=== PATIENT | female | born 1955 | race Caucasian/White ===

== ENCOUNTER 2018-11-03 19:15 | Inpatient (IN) | payer OTHER ==
[2018-11-03] MEDS ORDERED: LIDOCAINE 1% INJ 10MG/ML (20 ML MDV) ONE ×3 (19:37→20:06)
[2018-11-03] MEDS ORDERED: IV FLUID CONTINUATION 1,000 ML IV ONE (19:50)
[2018-11-03] MEDS ORDERED: LIDOCAINE 1% INJ 10MG/ML (20 ML MDV) SQ ONE (20:00)
[2018-11-03 21:00] LABS: Glucose,Whole Blood 208 mg/dL (75-99)
--- NOTE | 2018-11-03 23:21 | CONS ---
CONSULTATION CHIEF COMPLAINT: Complete heart block. HISTORY: This is a 62-year-old lady who presented to [facility] Emergency Room with epigastric discomfort, nausea, and dizziness. She was found to be in complete heart block and was transferred to [facility] for further care. I evaluated the patient in the dental laboratory worker. She is in complete heart block with a heart rate in the 30s. She is on IV dopamine which really does not seem to be doing a whole lot as her heart rhythm continues to be in complete heart block. The patient is alert, oriented, talking and does not have significant symptoms. She denies any chest pain or difficulty in breathing. There is no prior history of coronary artery disease or congestive heart failure. There is no prior cardiac workup on her. While her CBC shows normal hemoglobin, I do not have any electrolytes on her at this time. She is on CHAMP inhibitors and there is history of hypertension and diabetes. PAST MEDICAL HISTORY: Significant for hypertension and diabetes. MEDICATIONS: She is on Zestril and metformin. I do not have a complete list of her medications. ALLERGIES: She denies any allergies. SOCIAL HISTORY: Negative for smoking. FAMILY HISTORY: Negative for premature coronary artery disease. REVIEW OF SYSTEMS: HEENT: Significant for dizziness. CARDIAC: As described above. RESPIRATORY: Negative. GI: As described above. GENITOURINARY: Negative. MUSCULOSKELETAL: Significant for arthritis. PSYCHOSOCIAL: Negative. ENDOCRINE: Negative. DERM: Negative. CONSTITUTIONAL: Negative. ONCOLOGIC: Negative. The rest of the review of systems is not relevant. EXAM: Patient is comfortable at rest. Heart rate is 33 beats per minute. Blood pressure is 100/70. There is no jugular venous distention. Carotid upstroke is normal. There is no bruit. Chest exam reveals good air entry bilaterally. Heart exam reveals first and second heart sounds. No gallop. No murmur. No rub. Abdomen is soft, nontender. Exam of extremities did not reveal edema. Peripheral pulses are felt. DIAGNOSTIC DATA: EKG shows complete heart block. Labs are pending at this time. ASSESSMENT: 1. Complete heart block. 2. History of hypertension. 3. Diabetes. PLAN: Patient will undergo a temporary transvenous pacemaker emergently and will be admitted to ICU. I will obtain a 2D echo to assess LV function and depending upon how she wall, she may need a pacemaker. MMODL / IJN: [id number] /
[2018-11-03] MEDS ORDERED: NALOXONE 0.4 MG/ML 1 ML VIAL IV PRN (23:26)
--- NOTE | 2018-11-03 23:27 | PCN ---
PROCEDURE NOTE DATE OF SERVICE: 11/03/2018. PROCEDURE NOTE: After obtaining informed consent, a venous access was obtained in the right groin using modified Seldinger technique. A temporary transvenous pacemaker was floated into the right ventricle under fluoroscopic guidance. Adequate pacing and sensing thresholds were obtained and adequate positioning of the pacer lead noted in the RV apex. The patient will be admitted to ICU and we will obtain a chest x-ray in the morning. MMZIL / IJN: [id number] /
[2018-11-04 04:23] LABS: Basophils % (A) 1 %; Eosinophils # (A) 0.2 k/uL (0-0.7); Eosinophils % (A) 3 %; HCT 38.9 % (34.0-46.0); HGB 12.9 gm/dL (11.4-16.0); Lymphocytes # (A) 1.3 k/uL (1.0-4.8); Lymphocytes % (A) 18 %; MCH 27.6 pg (25.0-35.0); MCHC 33.1 g/dL (31.0-37.0); MCV 83.5 fL (80.0-100.0); Mean Platelet Volume 8.9; Monocytes # (A) 0.3 k/uL (0-1.0); Monocytes % (A) 5 %; Neutrophils # (A) 5.3 k/uL (1.3-7.7); Neutrophils % (A) 73 %; Platelet Count 174 k/uL (150-450); RBC 4.66 m/uL (3.80-5.40); RDW 14.7 % (11.5-15.5); WBC 7.2 k/uL (3.8-10.6)
[2018-11-04 04:44] LABS: African American GFR (CKD) >90 (>60 ml/min/1.73 sqM); Anion Gap 11 mmol/L; Blood Urea Nitrogen 13 mg/dL (7-17); Calcium 9.8 mg/dL (8.4-10.2); Carbon Dioxide 25 mmol/L (22-30); Chloride 104 mmol/L (98-107); Glucose 141 mg/dL (74-99); Potassium 4.8 mmol/L (3.5-5.1); Sodium 140 mmol/L (137-145)
[2018-11-04] MEDS: INSULIN ASPART (NovoLOG) 100 UNIT/ML VIAL SQ SCH ×4 (06:57→19:55)
[2018-11-04 06:59] LABS: Glucose,Whole Blood 119 mg/dL (75-99)
[2018-11-04] MEDS: SODIUM CHLORIDE 0.9% 1,000 ML IV SCH ×3 (08:00→19:56)
[2018-11-04 08:10] LABS: Magnesium 1.6 mg/dL (1.6-2.3); Phosphorus 4.1 mg/dL (2.5-4.5)
[2018-11-04] MEDS: LISINOPRIL 10 MG TAB PO SCH ×2 (08:21→19:55)
[2018-11-04] MEDS: PANTOPRAZOLE 40 MG/10 ML VIAL IV SCH (08:21)
--- NOTE | 2018-11-04 10:11 | XR ---
EXAMINATION TYPE: XR chest 1V DATE OF EXAM: 11/04/2018 COMPARISON: NONE HISTORY: ICU management TECHNIQUE: Single frontal view of the chest is obtained. FINDINGS: Nonenlarged cardiomediastinal silhouette. Single pacing lead tracts from the abdomen projects over th e heart. No pulmonary vascular congestion. No focal airspace consolidation. No pleural effusion or pn eumothorax. IMPRESSION: No acute process.
--- NOTE | 2018-11-04 10:14 | P.HPIM ---
History of Present Illness H&P Date: 11/04/18 Chief Complaint: Weakness This is a 62-year-old female patient of Dr. Aburto with a past medical history of diabetes mellitus type 2, hypertension, hyperlipidemia, corry roesophageal reflux disease. Patient gives history of generalized weakness especially to the lower extremities. She tried to walk to the drugstore to get her prescription but was unable to do that. She states she ate dinner and was then nauseated afterwards. She took a nap and she woke up she was sweating profusely. She states she has not felt well since then. Patient denies any history of cardiac issues and does not follow with medical case manager. No history of CVA. She's never had symptoms like this before. She denies any chest pain, shortness of breath. Nausea and has resolved. No vomiting. She denies any history of Lyme disease, camping, tick bites. Patient initially presented to [facility]. Patient was found to be in complete heart block with heart rate in the 30s. She was on IV dopamine and remained in a complete heart block. Hemoglobin was normal. Patient was transferred to the [facility] as a direct admission to the intensive care unit. Patient has had a temporary pacer placed by Dr. Zuleta with plan for permanent pacemaker for tomorrow. Echocardiogram has been ordered. Chest x-ray done this morning, report pending. Review of Systems Constitutional: Reports fatigue, Reports poor appetite, Reports weakness, Denies anorexia, Denies chills, Denies fever, Denies night sweats Eyes: bilateral decreased vision, bilateral photophobia Ears, nose, mouth and throat: Denies dysphagia, Denies epistaxis, Denies nasal congestion, Denies nasal discharge, Denies vertigo Cardiovascular: Denies chest pain, Denies decreased exercise tolerance, Denies dyspnea on exertion, Denies edema, Denies leg edema, Denies lightheadedness, Denies syncope Respiratory: Denies congestion, Denies cough, Denies cough with sputum, Denies dyspnea, Denies excessive sputum, Denies hemoptysis, Denies home oxygen, Denies wheezing Gastrointestinal: Reports loss of appetite, Reports nausea, Denies abdominal pain, Denies bloating, Denies diarrhea, Denies vomiting Genitourinary: Denies dysuria, Denies hematuria, Denies urgency, Denies urinary frequency Musculoskeletal: Reports muscle weakness, Denies frequent falls, Denies myalgias Integumentary: Denies pruritus, Denies rash, Denies wounds Neurological: Denies ataxia, Denies change in mentation, Denies change in speech, Denies numbness, Denies seizures, Denies weakness Psychiatric: Denies anxiety, Denies depression Endocrine: Denies fatigue, Denies weight change Past Medical History Past Medical History: Diabetes Mellitus, GERD/Reflux, Hyperlipidemia, Hypertension, Pneumonia Additional Past Medical History / Comment(s): Complete heart block History of Any Multi-Drug Resistant Organisms: None Reported Past Surgical History: Cholecystectomy, Hysterectomy Past Psychological History: Anxiety Smoking Status: Never smoker Past Alcohol Use History: None Reported Additional Past Alcohol Use History / Comment(s): Patient is a lifelong nonsmoker. No illicit drug use, no alcohol use. Past Drug Use History: None Reported - Past Family History Father Additional Family Medical History / Comment(s): Father in his 80s from a stroke. Mother Additional Family Medical History / Comment(s): Mother is with history of hypertension. Brother(s) Additional Family Medical History / Comment(s): Patient has one brother history of NH at age 60. Medications and Allergies Home Medications Medication Instructions Recorded Confirmed Type Calcium Carbonate [Calcium] 600 mg PO BID 11/03/18 11/03/18 History Fish Oil/Dha/Epa [Fish Oil 1,200 1 cap PO HS 11/03/18 11/03/18 History mg Fish Oil] Lisinopril [Prinivil] 10 mg PO BID 11/03/18 11/03/18 History Magnesium Oxide [Mag-Ox] 400 mg PO DAILY 11/03/18 11/03/18 History Omeprazole [PriLOSEC] 20 mg PO DAILY 11/03/18 11/03/18 History Simvastatin [Zocor] 20 mg PO HS 11/03/18 11/03/18 History Vitamin D3(Unknown Dose) 1 tab PO DAILY 11/03/18 11/03/18 History metFORMIN HCL ER [Glucophage Xr] 1,000 mg PO AC-BRKFST 11/03/18 11/03/18 History metFORMIN HCL ER [Glucophage Xr] 500 mg PO AC-SUPPER 11/03/18 11/03/18 History Allergies Allergy/AdvReac Type Severity Reaction Status Date / Time aspirin AdvReac Abdominal Verified 11/03/18 21:17 Pain Physical Exam Vitals: Vital Signs Temp Pulse Resp BP Pulse Ox 11/04/18 07:00 66 16 106/64 98 11/04/18 06:30 66 14 98 11/04/18 06:00 66 19 95/60 99 11/04/18 05:30 66 16 99 11/04/18 05:00 66 12 123/60 97 11/04/18 04:30 66 12 99 11/04/18 04:00 98.5 F 66 18 103/67 98 11/04/18 03:30 66 16 97 11/04/18 03:00 66 16 114/65 97 11/04/18 02:30 66 16 96 11/04/18 02:00 65 18 142/65 99 11/04/18 01:30 66 16 97 11/04/18 01:00 66 19 129/76 97 11/04/18 00:30 66 14 97 11/04/18 00:00 98.1 F 66 13 113/64 98 11/03/18 23:30 66 12 99 11/03/18 23:10 66 16 95 11/03/18 23:00 66 12 112/65 95 11/03/18 22:30 66 14 95 11/03/18 22:00 66 14 112/65 92 L 11/03/18 21:30 65 12 91 L 11/03/18 21:00 66 18 93 L 11/03/18 20:50 98.1 F 66 12 121/58 93 L Intake and Output 11/03/18 11/04/18 11/04/18 22:59 06:59 14:59 Intake Total 250 600 75 Output Total 600 250 Balance 250 0 -175 Intake: IV 250 600 75 0.9 NS 150 600 75 Output: Urine 600 250 Other: Voiding Method Bedpan Bedpan # Voids 1 Weight 65 kg 71.7 kg - Constitutional General appearance: average body habitus, no acute distress - EENT Eyes: edentulous, normal appearance - Neck Neck: no lymphadenopathy, normal ROM, no thyromegaly Carotids: bilateral: bruit absent - Respiratory Respiratory: bilateral: CTA, negative: rales, rhonchi, wheezing, prolonged expiration - Cardiovascular Rhythm: regular Heart sounds: normal: S1, S2 Abnormal Heart Sounds: no systolic murmur, no diastolic murmur, no rub, no S3 Gallop, no S4 Gallop - Gastrointestinal General gastrointestinal: normal bowel sounds, no organomegaly, no tenderness - Integumentary Integumentary: no jaundiced, normal - Neurologic Neurologic: CNII-XII intact - Musculoskeletal Musculoskeletal: strength equal bilaterally, no right sided weakness, no left sided weakness - Psychiatric Psychiatric: A&O x's 3, appropriate affect, intact judgment & insight Results CBC & Chem 7: 11/04/18 04:05 11/04/18 04:05 Labs: Abnormal Lab Results - Last 24 Hours (Table) 11/03/18 11/04/18 11/04/18 Range/Units 20:56 04:05 06:56 Glucose 141 H (74-99) mg/dL POC Glucose (mg/dL) 208 H 119 H (75-99) mg/dL Thrombosis Risk Factor Assmnt - DVT/VTE Prophylaxis DVT/VTE Prophylaxis: Pharmacologic Prophylaxis ordered - Choose All That Apply Any of the Below Risk Factors Present?: Yes Each Factor Represents 1 point: Medical pt on bed rest, Minor surgery planned Other Risk Factors: Yes Each Risk Factor Represents 2 Points: Age 61-74 years Thrombosis Risk Factor Assessment Total Risk Factor Score: 4 Thrombosis Risk Factor Assessment Level: Moderate Risk Assessment and Plan Plan: 1. Complete heart block status post temporary pacemaker placement by Dr. Orlando. Patient will be scheduled for permanent pacemaker placement. Echocardiogram ordered. Repeat chest X ray has been obtained and report is pending. 2. Diabetes mellitus type 2. Metformin on hold. Continue NovoLog scale before meals and at bedtime. 3. Hypertension. Continue lisinopril 10 mg twice daily. 4. Hyperlipidemia. Continue atorvastatin 20 mg at bedtime. 5. Gastroesophageal reflux disease. Continue omeprazole 20 mg daily. 6. DVT prophylaxis. Heparin subcu. Patient will be admitted to the hospital for a minimum of 2 night stay. Discharge plan: Return home Impression and plan of care have been directed as dictated by the signing physician. Jami Ramires nurse practitioner acting as scribe for signing physician.
[2018-11-04] MEDS ORDERED: SODIUM CHLORIDE 0.9% 1,000 ML IV SCH (11:45)
[2018-11-04 11:56] LABS: Glucose,Whole Blood 136 mg/dL (75-99)
[2018-11-04] MEDS: ACETAMINOPHEN TAB 325 MG TAB PO PRN (12:00)
--- NOTE | 2018-11-04 13:38 | ECHOF ---
Referral Reason:LVF MEASUREMENTS -------- HEIGHT: 154.9 cm WEIGHT: 71.7 kg BP: 106/64 RVIDd: 2.9 cm (< 3.3) IVSd: 1.3 cm (0.6 - 1.1) LVIDd: 3.9 cm (3.9 - 5.3) LVPWd: 1.1 cm (0.6 - 1.1) IVSs: 1.6 cm LVIDs: 2.4 cm LVPWs: 1.5 cm LAESV Index (A-L): 12.66 ml/m Ao Diam: 2.5 cm (2.0 - 3.7) AV Cusp: 1.5 cm (1.5 - 2.6) LA Diam: 2.7 cm (2.7 - 3.8) MV EXCURSION: 15.184 mm (> 18.000) MV EF SLOPE: 86 mm/s (70 - 150) EPSS: 0.9 cm MV E Neal: 0.87 m/s MV DecT: 319 ms MV A Neal: 0.76 m/s MV E/A Ratio: 1.15 RAP: 5.00 mmHg RVSP: 33.20 mmHg FINDINGS -------- Paced rhythm. This was a technically difficult study with suboptimal apical views. The left ventricular size is normal. There is mild concentric left ventricular hypertrophy. Overa ll left ventricular systolic function is low-normal with, an EF between 50 - 55 %. Apical septum LV wall motion is hypokinetic. Atypical septal wall motion The right ventricle is normal in size. Normal LA size by volume 22+/-6 ml/m2. The right atrial size is normal. 5.0mg of Lumason was utilized for enhancement of images Interatrial and interventricular septum intact. There is no evidence of aortic regurgitation. There is no evidence of aortic stenosis. Mild mitral annular calcification present. Mild mitral regurgitation is present. Mild tricuspid regurgitation present. There is borderline pulmonary artery hypertension. The righ t ventricular systolic pressure, as measured by Doppler, is 33.20mmHg. Trace/mild (physiologic) pulmonic regurgitation. The aortic root size is normal. IVC Not well visulized. There is no pericardial effusion. CONCLUSIONS -------- 1. Paced rhythm. 2. This was a technically difficult study with suboptimal apical views. 3. The left ventricular size is normal. 4. There is mild concentric left ventricular hypertrophy. 5. Overall left ventricular systolic function is low-normal with, an EF between 50 - 55 %. 6. Apical septum LV wall motion is hypokinetic. 7. Atypical septal wall motion 8. The right ventricle is normal in size. 9. Normal LA size by volume 22+/-6 ml/m2. 10. The right atrial size is normal. 11. 5.0mg of Lumason was utilized for enhancement of images 12. Interatrial and interventricular septum intact. 13. There is no evidence of aortic regurgitation. 14. There is no evidence of aortic stenosis. 15. Mild mitral annular calcification present. 16. Mild mitral regurgitation is present. 17. Mild tricuspid regurgitation present. 18. There is borderline pulmonary artery hypertension. 19. The right ventricular systolic pressure, as measured by Doppler, is 33.20mmHg. 20. Trace/mild (physiologic) pulmonic regurgitation. 21. The aortic root size is normal. 22. IVC Not well visulized. 23. There is no pericardial effusion. MOVABLE BULKHEAD INSTALLER: Gloria Polanco RDCS
[2018-11-04] MEDS ORDERED: Magnesium Replacement Protocol 1 EACH MISC MISCELLANE PRN (14:01)
[2018-11-04] MEDS: MAGNESIUM SULFATE-D5W PMX 1 GM in DEXTROSE/WATER 1 100ML.BAG IVPB SCH ×2 (14:26→15:45)
[2018-11-04 16:57] LABS: Glucose,Whole Blood 186 mg/dL (75-99)
[2018-11-04 19:54] LABS: Glucose,Whole Blood 147 mg/dL (75-99)
[2018-11-04] MEDS: ATORVASTATIN 20 MG TAB PO SCH (19:55)
--- NOTE | 2018-11-04 21:59 | PN ---
PROGRESS NOTE HISTORY: Mrs. Mora is a 62-year-old lady, a patient with a history of type 2 diabetes as well as hypertension who came into the hospital with a complete heart block, was seen by Dr. Amaya who performed a temporary pacemaker yesterday. She is resting comfortably, pretty much 100% paced at this time. She had a complete heart block with a rate of 30, on IV dopamine it did not help her much. I explained to her the rationale for permanent pacemaker. I explained her the risk of an infection, bleeding, injury to the lung and to the heart as well as a possibility of pneumothorax. The patient understands all details and wishes to proceed with the procedure which will be performed tomorrow at 11:00 a.m. I will obtain an echocardiogram to assess her LV function today. Her blood pressure control is optimal. She is resting comfortably. I am reducing the pacemaker settings to a backup rate of 50 beats per minute. The patient is fully aware of the rationale, risks, benefits, options related to permanent pacemaker and wishes to proceed and I will set this up for 11:00 a.m. tomorrow. MMCHAR / IJN: [id number] /
--- NOTE | 2018-11-04 22:29 | PN ---
PROGRESS NOTE HISTORY: Miri is a 62-year-old lady who is admitted to hospital with complete heart block. She underwent a temporary transvenous pacemaker last night by me. This morning she is doing well and is free of significant symptoms. She is still in complete heart block and the temporary transvenous pacemaker is functioning normally. LABS: Hemoglobin of 12.9, platelet count is 174, white cell count is normal. Creatinine is normal at 0.76. Potassium is 4.8. I will obtain a TSH on her and I will obtain a 2-D Doppler to document her LV function. The patient will need a permanent pacemaker and Dr. Donna Gutierrez will do it. EXAM: Patient is comfortable at rest. Vital signs are stable. There is no jugular venous distention. Chest exam reveals good air entry bilaterally. Vital signs are stable. There is no jugular venous distention. Chest is clear to auscultation and percussion. Heart exam reveals first and second heart sounds. No gallop. Exam of extremities did not reveal any edema. Peripheral pulses are felt. ASSESSMENT: Complete heart block status post temporary pacemaker. The patient will undergo permanent pacemaker tomorrow. I will obtain a 2D echo to document his LV function. MMODL / IJN: [id number] /
[2018-11-05] MEDS: ACETAMINOPHEN TAB 325 MG TAB PO PRN ×2 (02:11→16:56)
[2018-11-05 04:40] LABS: Basophils % (A) 1 %; Eosinophils # (A) 0.2 k/uL (0-0.7); Eosinophils % (A) 4 %; HCT 36.3 % (34.0-46.0); Lymphocytes # (A) 1.2 k/uL (1.0-4.8); Lymphocytes % (A) 18 %; MCHC 33.2 g/dL (31.0-37.0); MCV 84.4 fL (80.0-100.0); Mean Platelet Volume 8.8; Monocytes # (A) 0.3 k/uL (0-1.0); Monocytes % (A) 5 %; Neutrophils # (A) 4.8 k/uL (1.3-7.7); Neutrophils % (A) 72 %; Platelet Count 156 k/uL (150-450); RBC 4.29 m/uL (3.80-5.40); RDW 14.8 % (11.5-15.5); WBC 6.7 k/uL (3.8-10.6)
[2018-11-05 04:50] LABS: African American GFR (CKD) >90 (>60 ml/min/1.73 sqM); Anion Gap 8 mmol/L; Blood Urea Nitrogen 15 mg/dL (7-17); Calcium 8.7 mg/dL (8.4-10.2); Carbon Dioxide 23 mmol/L (22-30); Chloride 106 mmol/L (98-107); Glucose 143 mg/dL (74-99); Magnesium 2.1 mg/dL (1.6-2.3); Potassium 4.4 mmol/L (3.5-5.1); Sodium 137 mmol/L (137-145)
[2018-11-05] MEDS ORDERED: ceFAZolin 1,000 MG in SODIUM CHLORIDE 0.9% IRRIGATIO 250 ML IRRIGATION ONE (06:00)
[2018-11-05 06:24] LABS: Glucose,Whole Blood 149 mg/dL (75-99)
[2018-11-05] MEDS: INSULIN ASPART (NovoLOG) 100 UNIT/ML VIAL SQ SCH ×4 (06:25→22:03)
[2018-11-05] MEDS: SODIUM CHLORIDE 0.9% 1,000 ML IV SCH ×2 (08:00→11:39)
[2018-11-05] MEDS: PANTOPRAZOLE 40 MG/10 ML VIAL IV SCH (08:00)
[2018-11-05] MEDS: LISINOPRIL 10 MG TAB PO SCH ×2 (08:01→22:03)
[2018-11-05 11:49] LABS: Glucose,Whole Blood 133 mg/dL (75-99)
[2018-11-05] MEDS ORDERED: IV FLUID CONTINUATION 1,000 ML IV ONE (12:00)
[2018-11-05] MEDS ORDERED: IOPAMIDOL-250 100ML BTL IV ONE (12:18)
[2018-11-05] MEDS ORDERED: ceFAZolin 10 GM VIAL IVPB ONE ×2 (12:21→12:43)
[2018-11-05] MEDS ORDERED: MIDAZOLAM (PF) 2 MG/2 ML VIAL IV ONE (12:31)
[2018-11-05] MEDS ORDERED: LIDOCAINE 1% INJ 10MG/ML (20 ML MDV) ONE (12:34)
[2018-11-05] MEDS: LIDOCAINE 1% INJ 10MG/ML (20 ML MDV) SQ ONE ×2 (12:34→12:46)
[2018-11-05] MEDS ORDERED: fentaNYL (PF) 50 MCG/ML 2 ML AMP ONE (13:07)
[2018-11-05] MEDS ORDERED: fentaNYL (PF) 50 MCG/ML 2 ML AMP IV ONE (13:09)
[2018-11-05] MEDS ORDERED: ACETAMINOPHEN TAB 325 MG TAB PO PRN (14:11)
[2018-11-05] MEDS: METOPROLOL TARTRATE 25 MG TAB PO SCH ×2 (14:49→22:03)
[2018-11-05] MEDS ORDERED: MORPHINE SULFATE 4 MG/ML SYRINGE IVP PRN (14:56)
--- NOTE | 2018-11-05 15:13 | XR ---
EXAMINATION TYPE: XR chest 1V portable DATE OF EXAM: 11/05/2018 COMPARISON: 11/04/2018 HISTORY: Lead placement check TECHNIQUE: Single frontal view of the chest is obtained. FINDINGS: There is a new dual-lead left-sided cardiac device with a sinonodal lead and ventricular l ead. No postprocedural pneumothorax is seen. Minimal perihilar atelectasis. Cardiomediastinal silhoue tte is upper limits of normal size. No new focal consolidation, pleural effusion or pneumothorax. IMPRESSION: New dual lead left-sided cardiac device as described above with minimal perihilar atelec tasis.
[2018-11-05 16:51] LABS: Glucose,Whole Blood 143 mg/dL (75-99)
--- NOTE | 2018-11-05 16:55 | P.PN ---
Subjective Progress Note Date: 11/05/18 This is a 62-year-old female patient of Dr. Aburto with a past medical history of diabetes mellitus type 2, hypertension, hyperlipidemia, gastroesophageal reflux disease. Patient gives history of generalized weakness especially to the lower extremities. She tried to walk to the drugstore to get her prescription but was unable to do that. She states she ate dinner and was then nauseated afterwards. She took a nap and she woke up she was sweating profusely. She states she has not felt well since then. Patient denies any history of cardiac issues and does not follow with bungy jump master. No history of CVA. She's never had symptoms like this before. She denies any chest pain, shortness of breath. Nausea and has resolved. No vomiting. She denies any history of Lyme disease, camping, tick bites. Patient initially presented to [facility]. Patient was found to be in complete heart block with heart rate in the 30s. She was on IV dopamine and remained in a complete heart block. Hemoglobin was normal. Patient was transferred to the [facility] as a direct admission to the intensive care unit. Patient has had a temporary pacer placed by Dr. Zuleta with plan for permanent pacemaker for tomorrow. Echocardiogram has been ordered. Chest x-ray done this morning, report pending. 11/05 patient examined bedside complains of some pain in her back but denies any abnormality. Vitals are stable with a temp of 97.8 blood pressure 128/94 labs are stable patient is seen postoperatively doing well morphine added for pain control Review of system Constitutional: Denies chills, Denies fever, Denies lethargy, Denies malaise, Denies poor appetite, Denies weakness, Denies weight loss Eyes: denies decreased vision, denies diplopia, denies discharge, denies pain Ears: deny: decreased hearing Ears, nose, mouth and throat: Denies dental pain, Denies headache, Denies nasal discharge, Denies nose pain Cardiovascular: Denies chest pain, Denies decreased exercise tolerance, Denies edema, Denies high blood pressure, Denies irregular heart beat, Denies p alpitations, Denies paroxysmal nocturnal dyspnea, Denies rapid heart beat, Denies shortness of breath Respiratory: Denies congestion, Denies cough, Denies cough with sputum, Denies dyspnea, Denies home oxygen, Denies wheezing Gastrointestinal: Denies abdominal pain, Denies change in bowel habits, Denies coffee ground emesis, Denies early satiety, Denies excessive gas, Denies heartburn, Denies hematemesis, Denies hematochezia, Denies loss of appetite, Denies nausea, Denies vomiting Genitourinary: Denies dysuria, Denies flank pain, Denies kidney stones, Denies menorrhagia, Denies urgency, Denies urinary frequency Musculoskeletal: Denies gait dysfunction, Denies limitation of motion, Denies morning stiffness, Denies muscle cramps Integumentary: Denies rash, Denies wounds, Denies brittle nails, Denies change in hair/nails, Denies darkening of skin Neurological: Denies balance difficulties, Denies change in speech, Denies double vision, Denies gait dysfunction, Denies loss of vision, Denies motor disturbance, Denies numbness, Denies paralysis, Denies paresthesias, Denies seizures Psychiatric: Denies anxiety, Denies depression Endocrine: Denies excessive sweating, Denies excessive thirst, Denies high blood sugars, Denies palpitations Hematologic/Lymphatic: Denies easy bruising, Denies lymphadenopathy Objective - Vital Signs Vital signs: Vital Signs Temp 98.9 F 11/05/18 15:00 Pulse 89 11/05/18 15:00 Resp 16 11/05/18 15:00 BP 126/94 11/05/18 15:00 Pulse Ox 97 11/05/18 15:00 Intake & Output 11/04/18 11/05/18 11/05/18 18:59 06:59 18:59 Intake Total 1225 1050 600 Output Total 1560 825 620 Balance -335 225 -20 Weight 71.9 kg Intake: IV 75 550 600 0.9 NS 75 550 50 Sodium Chloride 0.9% 1, 300 000 ml @ 50 mls/hr IV . Q20H LEISA Rx#:[id number] Intake, IV Titration 650 50 Amount Sodium Chloride 0.9% 1, 650 50 000 ml @ 50 mls/hr IV . Q20H LEISA Rx#:[id number] Oral 500 450 Output: Urine 1560 825 620 Other: Voiding Method Indwelling Catheter Indwelling Catheter - Exam - Constitutional General appearance: cooperative, no acute distress, obese - EENT Eyes: anicteric sclerae, PERRLA, normal appearance ENT: hearing grossly normal - Neck Neck: no lymphadenopathy, normal ROM, no other, no rigidity, no stridor, no thyromegaly - Respiratory Respiratory: bilateral: CTA, negative: diminished, dullness, rales, rhonchi - Cardiovascular Rhythm: regular Heart sounds: normal: S1, S2 is negative aside appears normal Abnormal Heart Sounds: no systolic murmur, no diastolic murmur, no rub, no S3 Gallop, no S4 Gallop, no click, no other - Gastrointestinal General gastrointestinal: normal bowel sounds, soft - Integumentary Integumentary: no rash - Neurologic Neurologic: CNII-XII intact - Musculoskeletal Musculoskeletal: Strength is slightly reduced in the lower extremity for - Psychiatric Psychiatric: A&O x's 3, appropriate affect - Labs CBC & Chem 7: 11/05/18 04:17 11/05/18 04:17 Labs: Abnormal Lab Results - Last 24 Hours (Table) 11/04/18 11/04/18 11/05/18 Range/Units 16:54 19:51 04:17 Glucose 143 H (74-99) mg/dL POC Glucose (mg/dL) 186 H 147 H (75-99) mg/dL 11/05/18 11/05/18 11/05/18 Range/Units 06:20 11:45 16:48 Glucose (74-99) mg/dL POC Glucose (mg/dL) 149 H 133 H 143 H (75-99) mg/dL Assessment and Plan Plan: 1. Complete heart block status post permanent pacemaker on 11/05 Echocardiogram ordered. Repeat chest X ray has been obtained and report is pending. Pain control with morphine and Tylenol 2. Diabetes mellitus type 2. Metformin on hold. Continue NovoLog scale before meals and at bedtime. 3. Hypertension. Continue lisinopril 10 mg twice daily. 4. Hyperlipidemia. Continue atorvastatin 20 mg at bedtime. 5. Gastroesophageal reflux disease. Continue omeprazole 20 mg daily. 6. DVT prophylaxis. Heparin subcu. Discharge plan: Return home
[2018-11-05 20:20] LABS: Glucose,Whole Blood 232 mg/dL (75-99)
[2018-11-05 21:55] LABS: Glucose,Whole Blood 234 mg/dL (75-99)
[2018-11-05] MEDS: ATORVASTATIN 20 MG TAB PO SCH (22:03)
[2018-11-06] MEDS: SODIUM CHLORIDE 0.9% 1,000 ML IV SCH (01:21)
[2018-11-06] MEDS: ACETAMINOPHEN TAB 325 MG TAB PO PRN ×2 (01:22→10:16)
--- NOTE | 2018-11-06 01:28 | PCN ---
PROCEDURE NOTE DATE OF SERVICE: 11/05/2018. PROCEDURE: Dual chamber permanent pacemaker placement from left infraclavicular approach. PERFORMED BY: Dr. Donna Gutierrez. Moderate conscious sedation time was 91 minutes. Patient was administered Versed and fentanyl. Her oxygen saturation, hemodynamics and EKG were monitored closely. CLINICAL INFORMATION: Mrs. Miri Mora is a 62-year-old lady with a history of type 2 diabetes and hypertension who came into the hospital with weakness, bradycardia, dizziness, near- syncope and was found to have a complete heart block and required a temporary pacemaker for the last 36 hours. She was advised to have a permanent pacemaker. Risks, benefits, options and rationale were explained. The patient understood all details and wished to proceed with the procedure. PROCEDURE NOTE: Under local anesthesia and strict aseptic precautions, using a micropuncture needle technique from the left infraclavicular approach under fluoroscopic guidance, I gained access into the axillary vein. Subsequently a second access point was obtained medial to the first access point. A 3 inch linear incision was made medial and parallel to the left deltopectoral groove. Using a cautery and blunt dissection, a pocket was made. The medial wire was also pulled into the incision. The pocket was made and I also placed antibiotic sponge within the pocket. At the time of the incision patient received intravenous antibiotic as per protocol. Subsequently, 6-Iraqi introducers were placed under fluoroscopic guidance. The ventricular and atrial leads were positioned under fluoroscopic guidance. Good thresholds and sensitivities were obtained. Each lead was separately secured to the underlying muscle with 0 silk suture. The diaphragmatic pacing was checked with each lead. The IRISH and COBB fluoroscopic images were reviewed. We were assured that good position was there for both the leads. The thresholds were excellent. Sensitivities were very good. The pulse generator was then connected to the 2 leads. The pulse generator was also secured to the underlying muscle with a 0 silk. The pocket was then closed in 3 layers. Excellent hemostasis was secured. The patient tolerated the procedure well without complications. She will have a portable chest x-ray today and a two-view chest x-ray tomorrow and a device check tomorrow prior to discharge. PACEMAKER INFORMATION: Hand Clerical [employer]. Model Assurity MRI 2272. Serial #[id number]. ATRIAL LEAD: Hand Clerical [employer]. Model Tendril AST 2087TC/46. Serial number [id number]. VENTRICULAR LEAD: Hand Clerical Verifier [employer]. Model Tendril SDS 2088 TC/52. Serial #[id number]. Atrial threshold was 0.5 V at 0.4 milliseconds. The P-waves were 3.8 mV. Impedance was 508 ohms. The ventricular threshold was 0.9 V at 0.4 milliseconds. R-waves were 9.7 mV. Impedance was 47 ohms. Pacemaker was set at a low rate of 55 and a high rate of 120 in a DDD mode. Patient tolerated procedure well. The details were discussed with her family, specifically her boyfriend and daughter. MMZIL / COLBYN: [id number] /
[2018-11-06 04:36] LABS: HCT 34.6 % (34.0-46.0); HGB 11.4 gm/dL (11.4-16.0); MCH 27.6 pg (25.0-35.0); MCHC 32.8 g/dL (31.0-37.0); MCV 84.1 fL (80.0-100.0); Mean Platelet Volume 8.6; Platelet Count 145 k/uL (150-450); RBC 4.11 m/uL (3.80-5.40); WBC 7.9 k/uL (3.8-10.6)
[2018-11-06 04:48] LABS: African American GFR (CKD) >90 (>60 ml/min/1.73 sqM); Anion Gap 8 mmol/L; Blood Urea Nitrogen 14 mg/dL (7-17); Calcium 8.4 mg/dL (8.4-10.2); Carbon Dioxide 22 mmol/L (22-30); Chloride 106 mmol/L (98-107); Glucose 228 mg/dL (74-99); Potassium 4.5 mmol/L (3.5-5.1); Sodium 136 mmol/L (137-145)
[2018-11-06 06:57] LABS: Glucose,Whole Blood 155 mg/dL (75-99)
[2018-11-06] MEDS: INSULIN ASPART (NovoLOG) 100 UNIT/ML VIAL SQ SCH (07:03)
[2018-11-06] MEDS: LISINOPRIL 10 MG TAB PO SCH (08:11)
[2018-11-06] MEDS: PANTOPRAZOLE 40 MG/10 ML VIAL IV SCH (08:11)
[2018-11-06] MEDS: METOPROLOL TARTRATE 25 MG TAB PO SCH (08:12)
[2018-11-06 11:09] LABS: Lyme IgG/IgM 0.06 Index
[2018-11-06 11:33] VITALS: BP 135/73; PULSE 65; RESP 15; TEMP 98
--- NOTE | 2018-11-06 11:36 | PN ---
PROGRESS NOTE This patient was admitted with dizziness or lightheadedness. The patient was found to be in complete heart block. She underwent a permanent pacemaker placement. The pacemaker was checked this morning. The pacemaker is working normally. Patient is comfortable. She has ambulated in the hallway without any problem. The patient's incision site looks good. Blood pressure is 137/65 mmHg. First and second heart sounds are normal. Lungs are clear to auscultation and percussion. The patient will be discharged home today and will follow up with Dr. Amaya as an outpatient. MMODL / IJN: [id number] /
[2018-11-06 11:56] LABS: Glucose,Whole Blood 132 mg/dL (75-99)
--- NOTE | 2018-11-06 14:02 | XR ---
EXAMINATION TYPE: XR chest 2V DATE OF EXAM: 11/06/2018 COMPARISON: 11/05/2018 TECHNIQUE: PA and lateral views submitted. HISTORY: Lead placement check FINDINGS: The lungs are clear and there is no pneumothorax, pleural effusion, or focal pneumonia. There is a d ouble lead cardiac device is seen. Proximal lead overlying the right atrium and distal lead overlying the right ventricle. Hypertrophic and degenerative change of the spine. IMPRESSION: 1. Stereotactic device appears in good position with no sizable pneumothorax..
== END 2018-11-06 12:36 | disposition home or self-care (01) | DRG 244 ==
LOC: 2CATHESU 19:39 → 2SICU 20:15
PROVIDERS: ADMIT Internal Medicine Geriatric Medicine; ATTEND Internal Medicine Geriatric Medicine
PROC: 5A1223Z Performance of Cardiac Pacing, Continuous (ICD-10-PCS; principal; 2018-11-03 19:20)
PROC: 0JH606Z Insertion of Pacemaker, Dual Chamber into Chest Subcutaneous Tissue and Fascia, Open Approach (ICD-10-PCS; 2018-11-05)
PROC: 02H63JZ Insertion of Pacemaker Lead into Right Atrium, Percutaneous Approach (ICD-10-PCS; 2018-11-05)
PROC: 02HK3JZ Insertion of Pacemaker Lead into Right Ventricle, Percutaneous Approach (ICD-10-PCS; 2018-11-05)
DX: I44.2 Atrioventricular block, complete (principal); E11.9 Type 2 diabetes mellitus without complications; I10 Essential (primary) hypertension; E78.5 Hyperlipidemia, unspecified; K21.9 Gastro-esophageal reflux disease without esophagitis; M54.9 Dorsalgia, unspecified; Z79.84 Long term (current) use of oral hypoglycemic drugs; Z79.899 Other long term (current) drug therapy; Z87.01 Personal history of pneumonia (recurrent); Z90.710 Acquired absence of both cervix and uterus; Z90.49 Acquired absence of other specified parts of digestive tract; Z86.59 Personal history of other mental and behavioral disorders; Z88.6 Allergy status to analgesic agent; Z82.3 Family history of stroke; Z82.49 Family history of ischemic heart disease and other diseases of the circulatory system
CPT/HCPCS: 33208; 33210; 71045; 71046; 80048; 83735; 84100; 84443; 85025; 85027; 86618; 93306

== ENCOUNTER 2018-11-16 08:54 | Emergency (ER) | payer OTHER ==
[2018-11-16 10:22] LABS: Appearance,Urine Clear (Clear); Bilirubin,Urine Negative (Negative); Blood,Urine Negative (Negative); Color,Urine Light Yellow; Glucose,Urine (UA) Negative (Negative); Ketones,Urine Negative (Negative); Leukocyte Esterase,Urine Negative (Negative); Nitrite,Urine Negative (Negative); Protein,Urine Negative (Negative); Specific Gravity,Urine 1.004 (1.001-1.035); Urobilinogen,Urine <2.0 mg/dL (<2.0)
--- NOTE | 2018-11-16 10:23 | ED ---
Nausea/Vomiting/Diarrhea HPI - General Chief complaint: Nausea/Vomiting/Diarrhea Stated complaint: fever/nausea Time Seen by Provider: 11/16/18 09:13 Source: patient Mode of arrival: wheelchair Limitations: no limitations - History of Present Illness Initial comments: 62-year-old female with history of diabetes, hypertension, previous myocardial infarction November 03 2018 status post stent placement as well as pacemaker placement presenting today for chief complaint of nausea, episode of vomiting, diffuse abdominal pain. Patient states that she felt cost. For a few days. She states that she then took a laxative yesterday. 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 She denies any excessive diarrhea. Patient denies any fevers who states she has had some chills. Patient denies any chest pain shortness of breath and arm pain and jaw pain chest pressure epigastric burning pain or indigestion. Patient states it is all over the abdomen crampy in nature. Patient denies any radiation of the pain or severe pain. When symptoms persisted and today patient was concerned she was not sure if this was due to laxative and presented for evaluation. Remaining review of systems negative. - Related Data Home Medications Medication Instructions Recorded Confirmed Calcium Carbonate [Calcium] 600 mg PO BID 11/03/18 11/03/18 Fish Oil/Dha/Epa [Fish Oil 1,200 1 cap PO HS 11/03/18 11/03/18 mg Fish Oil] Lisinopril [Prinivil] 10 mg PO BID 11/03/18 11/03/18 Magnesium Oxide [Mag-Ox] 400 mg PO DAILY 11/03/18 11/03/18 Omeprazole [PriLOSEC] 20 mg PO DAILY 11/03/18 11/03/18 Simvastatin [Zocor] 20 mg PO HS 11/03/18 11/03/18 Vitamin D3(Unknown Dose) 1 tab PO DAILY 11/03/18 11/03/18 metFORMIN HCL ER [Glucophage Xr] 1,000 mg PO AC-BRKFST 11/03/18 11/03/18 metFORMIN HCL ER [Glucophage Xr] 500 mg PO AC-SUPPER 11/03/18 11/03/18 Previous Rx's Medication Instructions Recorded Metoprolol Tartrate [Lopressor] 25 mg PO BID #60 tab 11/06/18 Allergies Allergy/AdvReac Type Severity Reaction Status Date / Time aspirin AdvReac Abdominal Verified 11/16/18 09:08 Pain Review of Systems ROS Statement: Those systems with pertinent positive or pertinent negative responses have been documented in the HPI. ROS Other: All systems not noted in ROS Statement are negative. Past Medical History Past Medical History: Diabetes Mellitus, GERD/Reflux, Hyperlipidemia, Hypertension, Pneumonia Additional Past Medical History / Comment(s): Complete heart block History of Any Multi-Drug Resistant Organisms: None Reported Past Surgical History: Cholecystectomy, Hysterectomy Past Psychological History: Anxiety Smoking Status: Never smoker Past Alcohol Use History: None Reported Past Drug Use History: None Reported - Past Family History Father Additional Family Medical History / Comment(s): Father in his 80s from a stroke. Mother Additional Family Medical History / Comment(s): Mother is with history of hypertension. Brother(s) Additional Family Medical History / Comment(s): Patient has one brother history of ID at age 60. General Exam - General Exam Comments Initial Comments: General: The patient is awake and alert, in no distress, and does not appear acutely ill. Eye: +3 mm pupils are equal, round and reactive to light, extra-ocular movements are intact. No nystagmus. There is normal conjunctiva bilaterally. No signs of icterus. Ears, nose, mouth and throat: There are moist mucous membranes and no oral lesions. Neck: The neck is supple, there is no tenderness or JVD. Cardiovascular: There is a regular rate and rhythm. No murmur, rub or gallop is appreciated. Respiratory: Lungs are clear to auscultation, respirations are non-labored, breath sounds are equal. No wheezes, stridor, rales, or rhonchi. Gastrointestinal: Soft, non-distended, diffuse mild tenderness to palpation of the abdomen lower/upper regions, with lower greater-- without masses or organomegaly noted. There is no rebound or guarding present. Bowel sound unremarkable. Musculoskeletal: Upon inspection of the chest there is pacemaker left side. Normal ROM, no tenderness. Strength 5/5. Sensation intact. Pulses equal bilaterally 2+. Neurological: A&O x 3. CN II-XII intact, There are no obvious motor or sensory deficits. Coordination appears grossly intact. Speech is normal. Skin: Skin is warm and dry and no rashes or lesions are noted. Psychiatric: Cooperative, appropriate mood & affect, normal judgment. Limitations: no limitations Course Vital Signs 11/16/18 09:07 Temperature 98.3 F Pulse Rate 71 Respiratory 18 Rate Blood Pressure 151/84 O2 Sat by Pulse 97 Oximetry Medical Decision Making - Medical Decision Making 62 yo female presents today for chief complaint of nausea, abdominal pain cramping episode of vomiting. Patient took laxative yesterday's her symptoms began after she states she has had large bowel movements since about constant before. Patient says the chest pain or short of breath EKG unremarkable for acute process. Troponin negative. No leukocytosis. No electrolyte derangements. Patient has no active vomiting in the ER. Patient denies any severe pain CT was obtained given patient's advanced age revealing no evidence of bowel obstruction or acute process. At this time feel patient is stable for discharge with outpatient primary care follow-up. Patient to avoid laxative. I discussed the case with provider Dr. Terry who is agreeable to plan discharge at this time we did review laboratory studies and we discussed the case. - Lab Data Result diagrams: 11/16/18 11:05 11/16/18 11:05 Lab Results 11/16/18 11/16/18 11/16/18 Range/Units 10:14 11:05 11:05 WBC 6.6 (3.8-10.6) k/uL RBC 4.67 (3.80-5.40) m/uL Hgb 13.0 (11.4-16.0) gm/dL Hct 38.2 (34.0-46.0) % MCV 81.7 (80.0-100.0) fL MCH 27.8 (25.0-35.0) pg MCHC 34.0 (31.0-37.0) g/dL RDW 15.9 H (11.5-15.5) % Plt Count 213 (150-450) k/uL Neutrophils % 75 % Lymphocytes % 16 % Monocytes % 5 % Eosinophils % 3 % Basophils % 1 % Neutrophils # 5.0 (1.3-7.7) k/uL Lymphocytes # 1.1 (1.0-4.8) k/uL Monocytes # 0.3 (0-1.0) k/uL Eosinophils # 0.2 (0-0.7) k/uL Basophils # 0.0 (0-0.2) k/uL Poikilocytosis Slight Sodium 140 (137-145) mmol/L Potassium 4.5 (3.5-5.1) mmol/L Chloride 103 (98-107) mmol/L Carbon Dioxide 26 (22-30) mmol/L Anion Gap 11 mmol/L BUN 10 (7-17) mg/dL Creatinine 0.58 (0.52-1.04) mg/dL Est GFR (CKD-EPI)AfAm >90 (>60 ml/min/1.73 sqM) Est GFR (CKD-EPI)NonAf >90 (>60 ml/min/1.73 sqM) Glucose 157 H (74-99) mg/dL Calcium 10.0 (8.4-10.2) mg/dL Total Bilirubin 0.4 (0.2-1.3) mg/dL AST 24 (14-36) U/L ALT 19 (9-52) U/L Alkaline Phosphatase 68 (38-126) U/L Troponin I (0.000-0.034) ng/mL Total Protein 7.8 (6.3-8.2) g/dL Albumin 4.4 (3.5-5.0) g/dL Amylase 61 (30-110) U/L Lipase 97 (23-300) U/L Urine Color Light Yellow Urine Appearance Clear (Clear) Urine pH 7.0 (5.0-8.0) Ur Specific Forsan 1.004 (1.001-1.035) Urine Protein Negative (Negative) Urine Glucose (UA) Negative (Negative) Urine Ketones Negative (Negative) Urine Blood Negative (Negative) Urine Nitrite Negative (Negative) Urine Bilirubin Negative (Negative) Urine Urobilinogen <2.0 (<2.0) mg/dL Ur Leukocyte Esterase Negative (Negative) 11/16/18 Range/Units 11:05 WBC (3.8-10.6) k/uL RBC (3.80-5.40) m/uL Hgb (11.4-16.0) gm/dL Hct (34.0-46.0) % MCV (80.0-100.0) fL MCH (25.0-35.0) pg MCHC (31.0-37.0) g/dL RDW (11.5-15.5) % Plt Count (150-450) k/uL Neutrophils % % Lymphocytes % % Monocytes % % Eosinophils % % Basophils % % Neutrophils # (1.3-7.7) k/uL Lymphocytes # (1.0-4.8) k/uL Monocytes # (0-1.0) k/uL Eosinophils # (0-0.7) k/uL Basophils # (0-0.2) k/uL Poikilocytosis Sodium (137-145) mmol/L Potassium (3.5-5.1) mmol/L Chloride (98-107) mmol/L Carbon Dioxide (22-30) mmol/L Anion Gap mmol/L BUN (7-17) mg/dL Creatinine (0.52-1.04) mg/dL Est GFR (CKD-EPI)AfAm (>60 ml/min/1.73 sqM) Est GFR (CKD-EPI)NonAf (>60 ml/min/1.73 sqM) Glucose (74-99) mg/dL Calcium (8.4-10.2) mg/dL Total Bilirubin (0.2-1.3) mg/dL AST (14-36) U/L ALT (9-52) U/L Alkaline Phosphatase (38-126) U/L Troponin I <0.012 (0.000-0.034) ng/mL Total Protein (6.3-8.2) g/dL Albumin (3.5-5.0) g/dL Amylase (30-110) U/L Lipase (23-300) U/L Urine Color Urine Appearance (Clear) Urine pH (5.0-8.0) Ur Specific Forsan (1.001-1.035) Urine Protein (Negative) Urine Glucose (UA) (Negative) Urine Ketones (Negative) Urine Blood (Negative) Urine Nitrite (Negative) Urine Bilirubin (Negative) Urine Urobilinogen (<2.0) mg/dL Ur Leukocyte Esterase (Negative) Disposition Clinical Impression: Abdominal pain, Chills, Nausea Disposition: HOME SELF-CARE Condition: Good Instructions (If sedation given, give patient instructions): Acute Nausea and Vomiting (ED), Abdominal Pain (ED) Additional Instructions: Please use medication as discussed. Please follow-up with family doctor in the next 2 days.. Please return to emergency room if the symptoms increase or wo rsen or for any other concerns. Is patient prescribed a controlled substance at d/c from ED?: No Referrals: Kj Aburto MD [Primary Care Provider] - 1-2 days Time of Disposition: 12:48
[2018-11-16 11:36] LABS: ALT 19 U/L (9-52); AST 24 U/L (14-36); African American GFR (CKD) >90 (>60 ml/min/1.73 sqM); Albumin 4.4 g/dL (3.5-5.0); Alkaline Phosphatase 68 U/L (38-126); Amylase 61 U/L (30-110); Anion Gap 11 mmol/L; Basophils % (A) 1 %; Blood Urea Nitrogen 10 mg/dL (7-17); Carbon Dioxide 26 mmol/L (22-30); Chloride 103 mmol/L (98-107); Eosinophils # (A) 0.2 k/uL (0-0.7); Eosinophils % (A) 3 %; Glucose 157 mg/dL (74-99); HCT 38.2 % (34.0-46.0); Lymphocytes # (A) 1.1 k/uL (1.0-4.8); Lymphocytes % (A) 16 %; MCH 27.8 pg (25.0-35.0); MCV 81.7 fL (80.0-100.0); Mean Platelet Volume 8.5; Monocytes # (A) 0.3 k/uL (0-1.0); Monocytes % (A) 5 %; Neutrophils % (A) 75 %; Non-African American GFR(CKD) >90 (>60 ml/min/1.73 sqM); Platelet Count 213 k/uL (150-450); Poikilocytosis Slight; Potassium 4.5 mmol/L (3.5-5.1); RBC 4.67 m/uL (3.80-5.40); RDW 15.9 % (11.5-15.5); Sodium 140 mmol/L (137-145); Total Bilirubin 0.4 mg/dL (0.2-1.3); Total Protein 7.8 g/dL (6.3-8.2); WBC 6.6 k/uL (3.8-10.6)
[2018-11-16] MEDS ORDERED: ONDANSETRON 4 MG/2 ML VIAL IVP STA (11:40)
--- NOTE | 2018-11-16 12:29 | CT ---
EXAMINATION TYPE: CT abdomen pelvis w con DATE OF EXAM: 11/16/2018 HISTORY: abdominal pain, mid to lower CT DLP: 887.6mGycm Automated Exposure Control for Dose Reduction was Utilized. CONTRAST: CT scan of the abdomen and pelvis is performed without oral but with IV Contrast, patient injected wi th 100 mL of Isovue 300. COMPARISON: None FINDINGS: LUNG BASES: No significant abnormality is appreciated. LIVER/GB: Cholecystectomy clips are present. Prominent right hepatic lobe. Suspect roughly 1.0 cm fla sh filling hemangioma lateral aspect right hepatic lobe axial image 25. PANCREAS: No significant abnormality is seen. SPLEEN: No significant abnormality is seen. ADRENALS: No significant abnormality is seen. KIDNEYS: No significant abnormality is seen. BOWEL: Suboptimal evaluation of bowel without enteric contrast. Poor distention of stomach making juanita luation of this little suboptimal. No suspicious small or large bowel dilatation. Slightly low-lying cecum and right pelvis. Appendix likely normal normal coronal image 46. Slight redundancy of sigmoid colon. UTERUS/ADNEXA: Slightly retroflexed uterus. Tiny amount of free fluid pelvic cul-de-sac extending lef t of midline 63. No suspicious adnexal masses. LYMPH NODES: No greater than 1cm abdominal or pelvic lymph nodes are appreciated. OSSEOUS STRUCTURES: No significant abnormality is seen. OTHER: No significant additional abnormality is seen. IMPRESSION: No bowel obstruction. No significant acute finding is seen to account for patient's clini marlene symptoms on this study. Tiny amount of free fluid pelvic cul-de-sac uncertain etiology but is abn ormal finding in postmenopausal female.
[2018-11-16 13:46] VITALS: BP 133/76; PULSE 69; RESP 16; TEMP 97.9
== END 2018-11-16 13:42 | disposition home or self-care (01) ==
LOC: EC 08:54
DX: R10.84 Generalized abdominal pain (principal); R68.83 Chills (without fever); R11.0 Nausea; E11.9 Type 2 diabetes mellitus without complications; K21.9 Gastro-esophageal reflux disease without esophagitis; E78.5 Hyperlipidemia, unspecified; I10 Essential (primary) hypertension; I25.2 Old myocardial infarction; Z79.84 Long term (current) use of oral hypoglycemic drugs; Z79.899 Other long term (current) drug therapy; Z88.6 Allergy status to analgesic agent; Z95.0 Presence of cardiac pacemaker
CPT/HCPCS: 36415; 93005; 80053; 82150; 83690; 84484; 85025; 81003; 74177; 99284; 96374; J2405; Q9967

== ENCOUNTER 2018-11-22 17:15 | Emergency (ER) | payer MEDICARE, OTHER ==
[2018-11-22 17:23] VITALS: RESP 18
[2018-11-22] MEDS ORDERED: ACETAMINOPHEN TAB 325 MG TAB PO STA (18:34)
--- NOTE | 2018-11-22 18:39 | ED ---
General Adult HPI - General Chief complaint: Extremity Injury, Upper Stated complaint: Chest pain Time Seen by Provider: 11/22/18 18:04 Source: patient Mode of arrival: wheelchair Limitations: no limitations - History of Present Illness Initial comments: Patient is 63-year-old female presenting to the emergency department with a chief complaint of left shoulder pain. Patient reports she developed left shoulder pain along the anterior aspect of the deltoid especially with shoulder flexion. Patient reports yesterday she was carrying large packs and had no issues with the shoulder. Patient does have limited range of motion due to pain. Patient also reports she was opening a large doors using her left arm at the facility they live in. Patient reports she had a pacemaker placement about 2 weeks ago. Patient reports she went for a checkup one week ago with a expanded duty dental assistant who stated it was working as intended and the incisions are healing well. Patient denies any chest pain shortness of breath. Patient denies any headaches or blurry vision. - Related Data Home Medications Medication Instructions Recorded Confirmed Calcium Carbonate [Calcium] 600 mg PO BID 11/03/18 11/22/18 Fish Oil/Dha/Epa [Fish Oil 1,200 1 cap PO HS 11/03/18 11/22/18 mg Fish Oil] Lisinopril [Prinivil] 10 mg PO BID 11/03/18 11/22/18 Magnesium Oxide [Mag-Ox] 400 mg PO DAILY 11/03/18 11/22/18 Omeprazole [PriLOSEC] 20 mg PO DAILY 11/03/18 11/22/18 Simvastatin [Zocor] 20 mg PO HS 11/03/18 11/22/18 Vitamin D3(Unknown Dose) 1 tab PO DAILY 11/03/18 11/22/18 metFORMIN HCL ER [Glucophage Xr] 1,000 mg PO AC-BRKFST 11/03/18 11/22/18 metFORMIN HCL ER [Glucophage Xr] 500 mg PO AC-SUPPER 11/03/18 11/22/18 Fluticasone Nasal [place] [Flonase 2 spr EA NOSTRIL DAILY 11/22/18 11/22/18 Nasal [place]] Mag Hydrox/Al Hydrox/Simeth 30 ml PO Q6H PRN 11/22/18 11/22/18 [Maalox] Psyllium Husk 100% [Metamucil 6 gm PO DAILY 11/22/18 11/22/18 Packet] Previous Rx's Medication Instructions Recorded Metoprolol Tartrate [Lopressor] 25 mg PO BID #60 tab 11/06/18 Allergies Allergy/AdvReac Type Severity Reaction Status Date / Time aspirin AdvReac Abdominal Verified 11/22/18 18:16 Pain Review of Systems ROS Statement: Those systems with pertinent positive or pertinent negative responses have been documented in the HPI. ROS Other: All systems not noted in ROS Statement are negative. Past Medical History Past Medical History: Diabetes Mellitus, GERD/Reflux, Hyperlipidemia, Hypertension, Myocardial Infarction ([place]), Pneumonia Additional Past Medical History / Comment(s): Complete heart block History of Any Multi-Drug Resistant Organisms: None Reported Past Surgical History: Cholecystectomy, Heart Catheterization, Hysterectomy, Pacemaker Past Psychological History: Anxiety Smoking Status: Never smoker Past Alcohol Use History: None Reported Past Drug Use History: None Reported - Past Family History Father Additional Family Medical History / Comment(s): Father in his 80s from a stroke. Mother Additional Family Medical History / Comment(s): Mother is with history of hypertension. Brother(s) Additional Family Medical History / Comment(s): Patient has one brother history of [place] at age 60. General Exam Limitations: no limitations General appearance: alert, in no apparent distress Head exam: Present: atraumatic, normocephalic, normal inspection Eye exam: Present: normal appearance, PERRL, EOMI Pupils: Present: normal accommodation ENT exam: Present: normal exam, normal oropharynx, mucous membranes moist, normal external ear exam Neck exam: Present: normal inspection, full ROM Respiratory exam: Present: normal lung sounds bilaterally, other (Incision site for pacemaker placement on the left side of the chest.). Absent: chest wall tenderness Cardiovascular Exam: Present: regular rate, normal rhythm, normal heart sounds Extremities exam: Present: normal inspection, tenderness (Tenderness along the anterior aspect of the left shoulder.), normal capillary refill, other (+2 ulnar and radial pulses bilaterally.). Absent: full ROM (Limited range of motion with left shoulder flexion. Limited range of motion with abduction as well.) Back exam: Present: normal inspection, full ROM Neurological exam: Present: alert, oriented X3 Psychiatric exam: Present: normal affect, normal mood Skin exam: Present: warm, intact, normal color Course Vital Signs 11/22/18 11/22/18 17:19 20:27 Temperature 98.4 F 97.8 F Pulse Rate 72 62 Respiratory 18 18 Rate Blood Pressure 116/79 126/65 O2 Sat by Pulse 98 97 Oximetry Medical Decision Making - Medical Decision Making Patient is 63-year-old female presenting to the emergency department with chief complaint of left shoulder pain. Patient reports pain since this morning but states yesterday she was lifting large bags and opening doors with the left hand. Patient does have pain in the anterior aspect of the left shoulder but does have limited range of motion with abduction and flexion of the shoulder. I suspect shoulder strain. Patient did have a recent placement of a pacemaker and a left-sided chest which was examined by the physician who placed that about one week ago and there was no complications. Incision site does not appear infected. There is no tenderness over the area with the pacemaker. X-rays unremarkable. I suspect the patient to have shoulder strain which is causing her symptoms. Patient advised to apply cold compress to the region alternate between Tylenol and ibuprofen for pain control. Patient advised to follow-up with orthopedic his symptoms not improve. Patient does not have any chest pain or shortness of breath. Strict return parameters were thoroughly discussed with patient was understanding and agreeable. Case discussed with physician. Disposition Clinical Impression: Shoulder pain, left Disposition: HOME SELF-CARE Condition: Stable Instructions (If sedation given, give patient instructions): Shoulder Sprain (ED) Additional Instructions: Please follow up with orthopedics. Please return to emergency department symptoms worsen. Is patient prescribed a controlled substance at d/c from ED?: No Referrals: Kj Aburto MD [Primary Care Provider] - 1-2 days Adrian Gregory DO [Medical Doctor] - 1-2 days Time of Disposition: 20:16
--- NOTE | 2018-11-22 19:07 | XR ---
EXAMINATION TYPE: XR shoulder complete LT DATE OF EXAM: 11/22/2018 COMPARISON: NONE HISTORY: Shoulder pain TECHNIQUE: 4 views FINDINGS: There is no fracture nor dislocation. Glenohumeral joint is intact. There is left axillary pacemaker. There are no pathologic calcifications. IMPRESSION: Negative left shoulder exam.
[2018-11-22 20:29] VITALS: BP 126/65; PULSE 62; TEMP 97.8
== END 2018-11-22 20:28 | disposition home or self-care (01) ==
LOC: EC 17:15
DX: M25.512 Pain in left shoulder (principal); E11.9 Type 2 diabetes mellitus without complications; K21.9 Gastro-esophageal reflux disease without esophagitis; E78.5 Hyperlipidemia, unspecified; I10 Essential (primary) hypertension; I25.2 Old myocardial infarction; Z88.6 Allergy status to analgesic agent; Z79.51 Long term (current) use of inhaled steroids; Z79.84 Long term (current) use of oral hypoglycemic drugs; Z79.899 Other long term (current) drug therapy; Z87.01 Personal history of pneumonia (recurrent); Z95.0 Presence of cardiac pacemaker; X50.0XXA Overexertion from strenuous movement or load, initial encounter; Y92.009 Unspecified place in unspecified non-institutional (private) residence as the place of occurrence of the external cause
CPT/HCPCS: 99283

== ENCOUNTER 2018-11-24 06:49 | Emergency (ER) | payer MEDICARE, OTHER ==
[2018-11-24 07:03] VITALS: BP 130/76; RESP 16; TEMP 98.4
[2018-11-24 07:04] VITALS: PULSE 63
--- NOTE | 2018-11-24 07:49 | ED ---
General Adult HPI - General Chief complaint: Abdominal Pain Stated complaint: Abdominal Pain Time Seen by Provider: 11/24/18 07:00 Source: patient, RN notes reviewed Mode of arrival: wheelchair Limitations: no limitations - History of Present Illness Initial comments: This is a 63-year-old female presents emergency Department stating she's had abdominal cramping for the last 3 days. Patient states she had been seen in the ER 2 days ago here and yesterday over at [facility] and nothing was found. Patient states this morning about 3 AM she had a large bowel movement and passed a lot of gas and after that she felt considerably better. Patient states she comes in today to just make sure everything is still okay. Patient states that her abdominal pain is gone. Patient states she has had no vomiting or diarrhea. Patient denies any fever or chills. Patient states she just wants to be checked out to make sure she is okay she's been to see her doctor on Monday. - Related Data Home Medications Medication Instructions Recorded Confirmed Calcium Carbonate [Calcium] 600 mg PO BID 11/03/18 11/22/18 Fish Oil/Dha/Epa [Fish Oil 1,200 1 cap PO HS 11/03/18 11/22/18 mg Fish Oil] Lisinopril [Prinivil] 10 mg PO BID 11/03/18 11/22/18 Magnesium Oxide [Mag-Ox] 400 mg PO DAILY 11/03/18 11/22/18 Omeprazole [PriLOSEC] 20 mg PO DAILY 11/03/18 11/22/18 Simvastatin [Zocor] 20 mg PO HS 11/03/18 11/22/18 Vitamin D3(Unknown Dose) 1 tab PO DAILY 11/03/18 11/22/18 metFORMIN HCL ER [Glucophage Xr] 1,000 mg PO AC-BRKFST 11/03/18 11/22/18 metFORMIN HCL ER [Glucophage Xr] 500 mg PO AC-SUPPER 11/03/18 11/22/18 Fluticasone Nasal [place] [Flonase 2 spr EA NOSTRIL DAILY 11/22/18 11/22/18 Nasal [place]] Mag Hydrox/Al Hydrox/Simeth 30 ml PO Q6H PRN 11/22/18 11/22/18 [Maalox] Psyllium Husk 100% [Metamucil 6 gm PO DAILY 11/22/18 11/22/18 Packet] Previous Rx's Medication Instructions Recorded Metoprolol Tartrate [Lopressor] 25 mg PO BID #60 tab 11/06/18 Allergies Allergy/AdvReac Type Severity Reaction Status Date / Time aspirin AdvReac Abdominal Verified 11/24/18 07:03 Pain Review of Systems ROS Statement: Those systems with pertinent positive or pertinent negative responses have been documented in the HPI. ROS Other: All systems not noted in ROS Statement are negative. Past Medical History Past Medical History: Diabetes Mellitus, GERD/Reflux, Hyperlipidemia, Hypertension, Myocardial Infarction ([place]), Pneumonia Additional Past Medical History / Comment(s): Complete heart block History of Any Multi-Drug Resistant Organisms: None Reported Past Surgical History: Cholecystectomy, Heart Catheterization, Hysterectomy, Pacemaker Past Psychological History: Anxiety Smoking Status: Never smoker Past Alcohol Use History: None Reported Past Drug Use History: None Reported - Past Family History Father Additional Family Medical History / Comment(s): Father in his 80s from a stroke. Mother Additional Family Medical History / Comment(s): Mother is with history of hypertension. Brother(s) Additional Family Medical History / Comment(s): Patient has one brother history of [place] at age 60. General Exam - General Exam Comments Initial Comments: GENERAL: Patient is well-developed and well-nourished. Patient is nontoxic and well- hydrated and is in no acute distress. ENT: Neck is soft and supple. No significant lymphadenopathy is noted. Oropharynx is clear. Moist mucous membranes. Neck has full range of motion without eliciting any pain. were felt. EYES: The sclera were anicteric and conjunctiva were pink and moist. Extraocular movements were intact and pupils were equal round and reactive to light. Eyelids were unremarkable. PULMONARY: Unlabored respirations. Good breath sounds bilaterally. No audible rales rh onchi or wheezing was noted. CARDIOVASCULAR: There is a regular rate and rhythm without any murmurs gallops or rubs. ABDOMEN: Soft and nontender with normal bowel sounds. I could not find any area of tenderness. SKIN: Skin is clear with no lesions or rashes and otherwise unremarkable. NEUROLOGIC: Patient is alert and oriented x3. Cranial nerves II through XII are grossly intact. Motor and sensory are also intact. Normal speech, volume and content. Symmetrical smile. MUSCULOSKELETAL: Normal extremities with adequate strength and full range of motion. LYMPHATICS: No significant lymphadenopathy is noted PSYCHIATRIC: Normal psychiatric evaluation. Limitations: no limitations Course Vital Signs 11/24/18 07:00 Temperature 98.4 F Pulse Rate 63 Respiratory 16 Rate Blood Pressure 130/76 O2 Sat by Pulse 98 Oximetry Disposition Clinical Impression: Abdominal cramping Disposition: HOME SELF-CARE Instructions (If sedation given, give patient instructions): Abdominal Pain (ED) Is patient prescribed a controlled substance at d/c from ED?: No Referrals: Kj Aburto MD [Primary Care Provider] - 1-2 days Time of Disposition: 07:48
== END 2018-11-24 08:08 | disposition home or self-care (01) ==
LOC: EC 06:49
DX: R10.9 Unspecified abdominal pain (principal); E11.9 Type 2 diabetes mellitus without complications; K21.9 Gastro-esophageal reflux disease without esophagitis; E78.5 Hyperlipidemia, unspecified; I10 Essential (primary) hypertension; I25.2 Old myocardial infarction; Z88.6 Allergy status to analgesic agent; Z79.51 Long term (current) use of inhaled steroids; Z79.84 Long term (current) use of oral hypoglycemic drugs; Z79.899 Other long term (current) drug therapy; Z87.01 Personal history of pneumonia (recurrent); Z86.69 Personal history of other diseases of the nervous system and sense organs; Z90.49 Acquired absence of other specified parts of digestive tract; Z95.0 Presence of cardiac pacemaker
CPT/HCPCS: 99283

== ENCOUNTER 2018-11-24 08:53 | Emergency (ER) | payer MEDICARE, OTHER ==
[2018-11-24 09:08] VITALS: TEMP 98.1
[2018-11-24] MEDS ORDERED: ACETAMINOPHEN TAB 500 MG TAB PO STA (09:21)
[2018-11-24] MEDS ORDERED: LORazepam 1 MG TAB PO STA (09:21)
--- NOTE | 2018-11-24 09:23 | ED ---
General Adult HPI - General Chief complaint: Chest Pain Stated complaint: chest pain Time Seen by Provider: 11/24/18 09:05 Source: patient, RN notes reviewed Mode of arrival: wheelchair Limitations: no limitations - History of Present Illness Initial comments: This is a 63-year-old female who was in earlier for a checkup after her abdominal pain subsided. Patient states she asked for Tylenol prior to leaving she didn't get it and when she started heading towards the store she got a little anxious and states she had a little panic attack and felt some tightness in her chest so she came back in and was hoping to get some Tylenol and something for her anxiety. Patient states his not a pressure sensation is a little bit of tightness there is no shortness of breath she denies any diaphoretic episodes she denies any radiation of the tightness. Patient denies any nausea. Patient states talking to me makes her feel better. - Related Data Home Medications Medication Instructions Recorded Confirmed Calcium Carbonate [Calcium] 600 mg PO BID 11/03/18 11/24/18 Fish Oil/Dha/Epa [Fish Oil 1,200 1 cap PO HS 11/03/18 11/24/18 mg Fish Oil] Lisinopril [Prinivil] 10 mg PO BID 11/03/18 11/24/18 Magnesium Oxide [Mag-Ox] 400 mg PO DAILY 11/03/18 11/24/18 Omeprazole [PriLOSEC] 20 mg PO DAILY 11/03/18 11/24/18 Simvastatin [Zocor] 20 mg PO HS 11/03/18 11/24/18 metFORMIN HCL ER [Glucophage Xr] 1,000 mg PO AC-BRKFST 11/03/18 11/24/18 metFORMIN HCL ER [Glucophage Xr] 500 mg PO AC-SUPPER 11/03/18 11/24/18 Fluticasone Nasal [place] [Flonase 2 spr EA NOSTRIL DAILY 11/22/18 11/24/18 Nasal [place]] Mag Hydrox/Al Hydrox/Simeth 30 ml PO Q6H PRN 11/22/18 11/24/18 [Maalox] Psyllium Husk 100% [Metamucil 6 gm PO DAILY 11/22/18 11/24/18 Packet] Cholecalciferol [Vitamin D3 (25 2,000 unit PO DAILY 11/24/18 11/24/18 Mcg = 1000 Iu)] Previous Rx's Medication Instructions Recorded Metoprolol Tartrate [Lopressor] 25 mg PO BID #60 tab 11/06/18 Allergies Allergy/AdvReac Type Severity Reaction Status Date / Time aspirin AdvReac Abdominal Verified 11/24/18 09:10 Pain Review of Systems ROS Statement: Those systems with pertinent positive or pertinent negative responses have been documented in the HPI. ROS Other: All systems not noted in ROS Statement are negative. Past Medical History Past Medical History: Diabetes Mellitus, GERD/Reflux, Hyperlipidemia, Hypertension, Myocardial Infarction ([place]), Pneumonia Additional Past Medical History / Comment(s): Complete heart block History of Any Multi-Drug Resistant Organisms: None Reported Past Surgical History: Cholecystectomy, Heart Catheterization, Hysterectomy, Pacemaker Past Psychological History: Anxiety Smoking Status: Never smoker Past Alcohol Use History: None Reported Past Drug Use History: None Reported - Past Family History Father Additional Family Medical History / Comment(s): Father in his 80s from a stroke. Mother Additional Family Medical History / Comment(s): Mother is with history of hypertension. Brother(s) Additional Family Medical History / Comment(s): Patient has one brother history of [place] at age 60. General Exam - General Exam Comments Initial Comments: GENERAL: Patient is well-developed and well-nourished. Patient is nontoxic and well- hydrated and is in no acute distress. ENT: Neck is soft and supple. No significant lymphadenopathy is noted. Oropharynx is clear. Moist mucous membranes. Neck has full range of motion without eliciting any pain. were felt. EYES: The sclera were anicteric and conjunctiva were pink and moist. Extraocular movements were intact and pupils were equal round and reactive to light. Eyelids were unremarkable. PULMONARY: Unlabored respirations. Good breath sounds bilaterally. No audible rales rhonchi or wheezing was noted. CARDIOVASCULAR: There is a regular rate and rhythm without any murmurs gallops or rubs. ABDOMEN: Soft and nontender with normal bowel sounds. SKIN: Skin is clear with no lesions or rashes and otherwise unremarkable. NEUROLOGIC: Patient is alert and oriented x3. Cranial nerves II through XII are grossly intact. Motor and sensory are also intact. Normal speech, volume and content. Symmetrical smile. MUSCULOSKELETAL: Normal extremities with adequate strength and full range of motion. LYMPHATICS: No significant lymphadenopathy is noted PSYCHIATRIC: Patient is mildly anxious Limitations: no limitations Course Vital Signs 11/24/18 11/24/18 09:06 09:20 Temperature 98.1 F Pulse Rate 68 Pulse Rate [ 68 [employer] ] Respiratory 18 Rate Blood Pressure 129/68 O2 Sat by Pulse 99 Oximetry Medical Decision Making - Medical Decision Making EKG shows an paced rhythm at 66 bpm MD interval 272 QRS is 138 QT interval is 438 QTC is 459. Once patient calmed down and she was asymptomatic and she agreed that she thought this was just her anxiety. - Lab Data Result diagrams: 11/24/18 09:07 11/24/18 09:07 Lab Results 11/24/18 11/24/18 11/24/18 Range/Units 09:07 09:07 09:07 WBC 7.0 (3.8-10.6) k/uL RBC 4.72 (3.80-5.40) m/uL Hgb 13.2 (11.4-16.0) gm/dL Hct 39.1 (34.0-46.0) % MCV 82.9 (80.0-100.0) fL MCH 28.0 (25.0-35.0) pg MCHC 33.8 (31.0-37.0) g/dL RDW 14.5 (11.5-15.5) % Plt Count 195 (150-450) k/uL Neutrophils % 72 % Lymphocytes % 17 % Monocytes % 5 % Eosinophils % 4 % Basophils % 1 % Neutrophils # 5.0 (1.3-7.7) k/uL Lymphocytes # 1.2 (1.0-4.8) k/uL Monocytes # 0.4 (0-1.0) k/uL Eosinophils # 0.3 (0-0.7) k/uL Basophils # 0.1 (0-0.2) k/uL Sodium 138 (137-145) mmol/L Potassium 4.8 (3.5-5.1) mmol/L Chloride 104 (98-107) mmol/L Carbon Dioxide 22 (22-30) mmol/L Anion Gap 12 mmol/L BUN 10 (7-17) mg/dL Creatinine 0.60 (0.52-1.04) mg/dL Est GFR (CKD-EPI)AfAm >90 (>60 ml/min/1.73 sqM) Est GFR (CKD-EPI)NonAf >90 (>60 ml/min/1.73 sqM) Glucose 123 H (74-99) mg/dL Calcium 9.6 (8.4-10.2) mg/dL Total Bilirubin 0.6 (0.2-1.3) mg/dL AST 28 (14-36) U/L ALT 22 (9-52) U/L Alkaline Phosphatase 64 (38-126) U/L Troponin I <0.012 (0.000-0.034) ng/mL Total Protein 7.7 (6.3-8.2) g/dL Albumin 4.2 (3.5-5.0) g/dL Disposition Clinical Impression: Panic attack Disposition: HOME SELF-CARE Condition: Good Instructions (If sedation given, give patient instructions): Anxiety (ED) Is patient prescribed a controlled substance at d/c from ED?: No Referrals: Kj Aburto MD [Primary Care Provider] - 1-2 days Time of Disposition: 10:50
[2018-11-24 10:10] LABS: Basophils # (A) 0.1 k/uL (0-0.2); Basophils % (A) 1 %; Eosinophils # (A) 0.3 k/uL (0-0.7); Eosinophils % (A) 4 %; HCT 39.1 % (34.0-46.0); HGB 13.2 gm/dL (11.4-16.0); Lymphocytes # (A) 1.2 k/uL (1.0-4.8); Lymphocytes % (A) 17 %; MCHC 33.8 g/dL (31.0-37.0); MCV 82.9 fL (80.0-100.0); Mean Platelet Volume 8.1; Monocytes # (A) 0.4 k/uL (0-1.0); Monocytes % (A) 5 %; Neutrophils % (A) 72 %; Platelet Count 195 k/uL (150-450); RBC 4.72 m/uL (3.80-5.40); RDW 14.5 % (11.5-15.5)
[2018-11-24 10:34] LABS: African American GFR (CKD) >90 (>60 ml/min/1.73 sqM); Albumin 4.2 g/dL (3.5-5.0); Anion Gap 12 mmol/L; Blood Urea Nitrogen 10 mg/dL (7-17); Calcium 9.6 mg/dL (8.4-10.2); Carbon Dioxide 22 mmol/L (22-30); Chloride 104 mmol/L (98-107); Glucose 123 mg/dL (74-99); Sodium 138 mmol/L (137-145); Total Bilirubin 0.6 mg/dL (0.2-1.3); Total Protein 7.7 g/dL (6.3-8.2)
[2018-11-24 10:40] LABS: ALT 22 U/L (9-52); AST 28 U/L (14-36); Alkaline Phosphatase 64 U/L (38-126); Potassium 4.8 mmol/L (3.5-5.1)
[2018-11-24 10:59] VITALS: BP 133/86; PULSE 61; RESP 16
== END 2018-11-24 10:57 | disposition home or self-care (01) ==
LOC: EC 08:53
DX: F41.0 Panic disorder [episodic paroxysmal anxiety] (principal); K21.9 Gastro-esophageal reflux disease without esophagitis; E11.9 Type 2 diabetes mellitus without complications; E78.5 Hyperlipidemia, unspecified; I10 Essential (primary) hypertension; I25.2 Old myocardial infarction; Z79.899 Other long term (current) drug therapy; Z79.84 Long term (current) use of oral hypoglycemic drugs; Z79.51 Long term (current) use of inhaled steroids; Z88.6 Allergy status to analgesic agent; Z95.0 Presence of cardiac pacemaker; Z95.5 Presence of coronary angioplasty implant and graft; Z90.49 Acquired absence of other specified parts of digestive tract
CPT/HCPCS: 36415; 80053; 84484; 85025; 93005; 99285

== ENCOUNTER 2018-11-25 15:01 | Inpatient (IN) | payer MEDICARE, OTHER ==
[2018-11-25] MEDS ORDERED: NITROGLYCERIN OINT 1 INCH/GM PACKET TOPICAL STA (15:32)
--- NOTE | 2018-11-25 15:40 | ED ---
General Adult HPI - General Chief complaint: Chest Pain Stated complaint: Chest Pain Time Seen by Provider: 11/25/18 15:05 Source: patient, RN notes reviewed Mode of arrival: ambulatory Limitations: no limitations - History of Present Illness Initial comments: This is a 63-year-old female resents to the emergency department complaining of chest pain radiating down her left arm. Patient states she has diabetes hypertension and cluster. Patient states she is difficult to breathing every time she gets the chest pain. Patient states the chest pain again started today and she got concerned so she can emergency department. Patient denies any fever chills or cough. Patient denies any abdominal pain patient denies nausea vomiting diarrhea. Patient denies any lightheadedness or dizziness patient denies any headache patient denies numbness weakness. - Related Data Home Medications Medication Instructions Recorded Confirmed Calcium Carbonate [Calcium] 600 mg PO BID 11/03/18 11/25/18 Fish Oil/Dha/Epa [Fish Oil 1,200 1 cap PO HS 11/03/18 11/25/18 mg Fish Oil] Lisinopril [Prinivil] 10 mg PO BID 11/03/18 11/25/18 Magnesium Oxide [Mag-Ox] 400 mg PO DAILY 11/03/18 11/25/18 Omeprazole [PriLOSEC] 20 mg PO DAILY 11/03/18 11/25/18 Simvastatin [Zocor] 20 mg PO HS 11/03/18 11/25/18 metFORMIN HCL ER [Glucophage Xr] 1,000 mg PO AC-BRKFST 11/03/18 11/25/18 metFORMIN HCL ER [Glucophage Xr] 500 mg PO AC-SUPPER 11/03/18 11/25/18 Fluticasone Nasal [place] [Flonase 2 spr EA NOSTRIL DAILY 11/22/18 11/25/18 Nasal [place]] Mag Hydrox/Al Hydrox/Simeth 30 ml PO Q6H PRN 11/22/18 11/25/18 [Maalox] Psyllium Husk 100% [Metamucil 6 gm PO DAILY 11/22/18 11/25/18 Packet] Cholecalciferol [Vitamin D3 (25 2,000 unit PO DAILY 11/24/18 11/25/18 Mcg = 1000 Iu)] Previous Rx's Medication Instructions Recorded Metoprolol Tartrate [Lopressor] 25 mg PO BID #60 tab 11/06/18 Allergies Allergy/AdvReac Type Severity Reaction Status Date / Time aspirin AdvReac Abdominal Verified 11/25/18 15:47 Pain Review of Systems ROS Statement: Those systems with pertinent positive or pertinent negative responses have been documented in the HPI. ROS Other: All systems not noted in ROS Statement are negative. Past Medical History Past Medical History: Diabetes Mellitus, GERD/Reflux, Hyperlipidemia, Hypertension, Myocardial Infarction ([place]), Pneumonia Additional Past Medical History / Comment(s): Complete heart block History of Any Multi-Drug Resistant Organisms: None Reported Past Surgical History: Cholecystectomy, Heart Catheterization, Hysterectomy, Pacemaker Past Psychological History: Anxiety Smoking Status: Never smoker Past Alcohol Use History: None Reported Past Drug Use History: None Reported - Past Family History Father Additional Family Medical History / Comment(s): Father in his 80s from a stroke. Mother Additional Family Medical History / Comment(s): Mother is with history of hypertension. Brother(s) Additional Family Medical History / Comment(s): Patient has one brother history of [place] at age 60. General Exam Limitations: no limitations Course Vital Signs 11/25/18 15:04 Temperature 99.0 F Pulse Rate 88 Respiratory 16 Rate Blood Pressure 147/85 O2 Sat by Pulse 97 Oximetry Medical Decision Making - Medical Decision Making EKG shows a paced rhythm at 85 bpm AL interval is 268 QRSs 1:30 QT interval 408 QTC is 485 Chest x-ray shows no acute abnormality. I spoke with Dr. Valentino she agreed to admit the patient for 23 observation. - Lab Data Result diagrams: 11/25/18 15:42 11/25/18 15:42 Lab Results 11/25/18 11/25/18 11/25/18 Range/Units 15:42 15:42 15:42 WBC 6.3 (3.8-10.6) k/uL RBC 4.72 (3.80-5.40) m/uL Hgb 13.1 (11.4-16.0) gm/dL Hct 39.8 (34.0-46.0) % MCV 84.2 (80.0-100.0) fL MCH 27.8 (25.0-35.0) pg MCHC 33.0 (31.0-37.0) g/dL RDW 14.6 (11.5-15.5) % Plt Count 181 (150-450) k/uL Neutrophils % 66 % Lymphocytes % 21 % Monocytes % 6 % Eosinophils % 5 % Basophils % 2 % Neutrophils # 4.2 (1.3-7.7) k/uL Lymphocytes # 1.3 (1.0-4.8) k/uL Monocytes # 0.4 (0-1.0) k/uL Eosinophils # 0.3 (0-0.7) k/uL Basophils # 0.1 (0-0.2) k/uL PT 9.7 (9.0-12.0) sec INR 0.9 (<1.2) APTT 22.4 (22.0-30.0) sec Sodium 138 (137-145) mmol/L Potassium 4.2 (3.5-5.1) mmol/L Chloride 103 (98-107) mmol/L Carbon Dioxide 23 (22-30) mmol/L Anion Gap 12 mmol/L BUN 12 (7-17) mg/dL Creatinine 0.74 (0.52-1.04) mg/dL Est GFR (CKD-EPI)AfAm >90 (>60 ml/min/1.73 sqM) Est GFR (CKD-EPI)NonAf 86 (>60 ml/min/1.73 sqM) Glucose 184 H (74-99) mg/dL Calcium 9.6 (8.4-10.2) mg/dL Magnesium 1.7 (1.6-2.3) mg/dL Total Bilirubin 0.1 L (0.2-1.3) mg/dL AST 18 (14-36) U/L ALT 18 (9-52) U/L Alkaline Phosphatase 61 (38-126) U/L Troponin I (0.000-0.034) ng/mL Total Protein 7.2 (6.3-8.2) g/dL Albumin 4.1 (3.5-5.0) g/dL 11/25/18 Range/Units 15:42 WBC (3.8-10.6) k/uL RBC (3.80-5.40) m/uL Hgb (11.4-16.0) gm/dL Hct (34.0-46.0) % MCV (80.0-100.0) fL MCH (25.0-35.0) pg MCHC (31.0-37.0) g/dL RDW (11.5-15.5) % Plt Count (150-450) k/uL Neutrophils % % Lymphocytes % % Monocytes % % Eosinophils % % Basophils % % Neutrophils # (1.3-7.7) k/uL Lymphocytes # (1.0-4.8) k/uL Monocytes # (0-1.0) k/uL Eosinophils # (0-0.7) k/uL Basophils # (0-0.2) k/uL PT (9.0-12.0) sec INR (<1.2) APTT (22.0-30.0) sec Sodium (137-145) mmol/L Potassium (3.5-5.1) mmol/L Chloride (98-107) mmol/L Carbon Dioxide (22-30) mmol/L Anion Gap mmol/L BUN (7-17) mg/dL Creatinine (0.52-1.04) mg/dL Est GFR (CKD-EPI)AfAm (>60 ml/min/1.73 sqM) Est GFR (CKD-EPI)NonAf (>60 ml/min/1.73 sqM) Glucose (74-99) mg/dL Calcium (8.4-10.2) mg/dL Magnesium (1.6-2.3) mg/dL Total Bilirubin (0.2-1.3) mg/dL AST (14-36) U/L ALT (9-52) U/L Alkaline Phosphatase (38-126) U/L Troponin I <0.012 (0.000-0.034) ng/mL Total Protein (6.3-8.2) g/dL Albumin (3.5-5.0) g/dL Disposition Clinical Impression: Chest pain Disposition: ADMITTED IP TO THIS HOSP Referrals: Kj Aburto MD [Primary Care Provider] - 1-2 days Time of Disposition: 16:40
[2018-11-25] MEDS: ASPIRIN 81 MG PO STA ×2 (15:53→15:56)
[2018-11-25 15:54] LABS: Basophils # (A) 0.1 k/uL (0-0.2); Basophils % (A) 2 %; Eosinophils # (A) 0.3 k/uL (0-0.7); Eosinophils % (A) 5 %; HCT 39.8 % (34.0-46.0); HGB 13.1 gm/dL (11.4-16.0); Lymphocytes # (A) 1.3 k/uL (1.0-4.8); Lymphocytes % (A) 21 %; MCH 27.8 pg (25.0-35.0); MCV 84.2 fL (80.0-100.0); Mean Platelet Volume 8.2; Monocytes # (A) 0.4 k/uL (0-1.0); Monocytes % (A) 6 %; Neutrophils # (A) 4.2 k/uL (1.3-7.7); Neutrophils % (A) 66 %; Platelet Count 181 k/uL (150-450); RBC 4.72 m/uL (3.80-5.40); RDW 14.6 % (11.5-15.5); WBC 6.3 k/uL (3.8-10.6)
[2018-11-25 16:02] LABS: INR 0.9 (<1.2); Partial Thromboplastin Time 22.4 sec (22.0-30.0); Prothrombin Time 9.7 sec (9.0-12.0)
[2018-11-25 16:07] LABS: ALT 18 U/L (9-52); AST 18 U/L (14-36); African American GFR (CKD) >90 (>60 ml/min/1.73 sqM); Albumin 4.1 g/dL (3.5-5.0); Alkaline Phosphatase 61 U/L (38-126); Anion Gap 12 mmol/L; Blood Urea Nitrogen 12 mg/dL (7-17); Calcium 9.6 mg/dL (8.4-10.2); Carbon Dioxide 23 mmol/L (22-30); Chloride 103 mmol/L (98-107); Glucose 184 mg/dL (74-99); Magnesium 1.7 mg/dL (1.6-2.3); Potassium 4.2 mmol/L (3.5-5.1); Sodium 138 mmol/L (137-145); Total Bilirubin 0.1 mg/dL (0.2-1.3); Total Protein 7.2 g/dL (6.3-8.2)
--- NOTE | 2018-11-25 16:08 | XR ---
EXAMINATION TYPE: XR chest 2V DATE OF EXAM: 11/25/2018 COMPARISON: 11/06/2018 HISTORY: Chest pain TECHNIQUE: Frontal and lateral views of the chest are obtained. FINDINGS: Heart and mediastinum are normal. Lungs are clear. Diaphragm is normal. Bony thorax is int act. There is slight thoracic dextroscoliosis. IMPRESSION: No active cardiopulmonary disease. Normal heart. No change.
[2018-11-25] MEDS ORDERED: NITROGLYCERIN SL TABS 0.4 MG TAB SUBLINGUAL PRN (16:40)
--- NOTE | 2018-11-25 16:51 | P.HPIM ---
History of Present Illness H&P Date: 11/25/18 Chief Complaint: Chest pain radiating down the left arm This is a 62-year-old female patient of Dr. Lamonte Amaya with a past medical history of diabetes mellitus type 2, hypertension, hyperlipidemia, gastroesophageal reflux disease. Who was admitted here 11/04/2018 Patient gives history of generalized weakness especially to the lower extremities. She tried to walk to the drugstore to get her prescription but was unable to do that. And was noted to have a complete heart block status post pacemaker placement on 11/05/[address] AILYN Gutierrez, dual-chamber permanent pacemaker implantation. No complications including pneumothorax, and was discharged to home. . No history of CVA She denies any chest pain, shortness of breath. Nausea and has resolved. No vomiting. She denies any history of Lyme disease, camping, tick bites. .11/06/18: Echocardiogram reveals EF 50-55%, mild concentric left ventricle hypertrophy, mild mitral regurgitation, mild tricuspid regurgitation, borderline pulmonary artery hypertension, right ventricular systolic pressure 33.2. she comes seen in the emergency room, with multiple visits on , with fever and nausea, 11/22 chest pain, 11/24 with abdominal pain, returned again 11/24 with chest pain, imaging studies in this ER visits include CAT scan of the abdomen and pelvis shows postcholecystectomy, 1 cm filling hemangioma right hepatic lobe, pancreas normal spleen normal adrenals normal kidneys normal bowel sub optimal evaluation, redundant sigmoid colon, tiny amount of free fluid pelvic cul-de-sac, uncertain etiology but this abnormal finding in postmenopausal female, no greater than 1 cm lymph node, no suspicious adnexal masses shoulder x-ray negative chest x-ray shows no pneumothorax not active cardiopulmonary disease no CHF, 3 troponins that are negative from 913 04/14/2021, lipase normal 97, kidneys normal, INR 0.9, urinalysis negative, EKG shows atrial sensed ventricular paced rhythm heart rate of 85. No stress test was done recently, echocardiogram on 11/04/2018 shows EF 55%, apical septal wall motion, with hypokinesia, no aortic stenosis, mild MR mild TR, borderline pulmonary hypertension RVSP 33, no pericardial effusion Patient now comes in to emergency room secondary to chest pain radiating down to the left arm, with difficulty of breathing every time she gets chest pain, no cough no fever no chills, no motor weakness, no lightheadedness or dizziness, fever or chills has resolved, abdominal pain has resolved pain is in the sternum, with tenderness on palpation implantation site for the pacemaker left pectoralis, no hematoma, on examination no cellulitis. ER labs troponin 1 n egative. Per patient she was scheduled to have a chemical stress test in [address] Amaya which was scheduled in his office Review of Systems Constitutional: Reports as per HPI, Denies anorexia, Denies chills, Denies chronic headaches, Denies chronic pain, Denies daytime sleepiness, Denies fatigue, Denies fever, Denies lethargy, Denies malaise, Denies night sweats, Denies poor appetite, Denies sweats, Denies weakness, Denies weight gain, Denies weight loss Cardiovascular: Reports as per HPI, Reports chest pain, Denies claudication, Denies decreased exercise tolerance, Denies dyspnea on exertion, Denies edema, Denies high blood pressure, Denies irregular heart beat, Denies leg edema, Denies lightheadedness, Denies orthopnea, Denies palpitations, Denies paroxysmal nocturnal dyspnea, Denies phlebitis, Denies rapid heart beat, Denies shortness of breath, Denies syncope Respiratory: Reports pain, Reports pain on inspiration, Denies as per HPI, Denies congestion, Denies cough, Denies cough with sputum, Denies dyspnea, Denies excessive sputum, Denies hemoptysis, Denies home oxygen, Denies pleurisy, Denies respiratory infections, Denies sleep apnea, Denies snoring, Denies wheezing Gastrointestinal: Reports as per HPI, Denies abdominal pain, Denies belching, Denies bloating, Denies BRBPR, Denies change in bowel habits, Denies coffee ground emesis, Denies constipation, Denies diarrhea, Denies dyspepsia, Denies early satiety, Denies excessive gas, Denies heartburn, Denies hematemesis, Denies hematochezia, Denies indigestion, Denies jaundice, Denies lactose intolerance, Denies loss of appetite, Denies melena, Denies nausea, Denies vomiting Genitourinary: Reports as per HPI, Denies abnormal vaginal bleeding, Denies decreased libido, Denies difficulty conceiving, Denies difficulty voiding, Denies dysmenorrhea, Denies dyspareunia, Denies dysuria, Denies flank pain, Denies genital sores, Denies hematuria, Denies hot flashes, Denies incomplete emptying, Denies kidney stones, Denies menorrhagia, Denies mixed incontinence, Denies nocturia, Denies pelvic pain, Denies post void dribbling, Denies , Denies prolapse symptoms, Denies stress incontinence, Denies urge incontinence, Denies urgency, Denies urinary frequency, Denies vaginal discharge, Denies vaginal dryness, Denies vaginal itching, Denies vaginal odor Menstruation: Reports as per HPI Musculoskeletal: Reports as per HPI, Denies arm numbness/tingling, Denies atrophy, Denies fractures, Denies frequent falls, Denies gait dysfunction, Denies hot joints, Denies leg numbness/tingling, Denies limitation of motion, Denies loss of height, Denies low back pain, Denies morning stiffness, Denies muscle cramps, Denies muscle weakness, Denies myalgias, Denies neck pain, Denies neck stiffness, Denies prior amputations, Denies redness of joints, Denies shooting arm pain, Denies shooting leg pain Neurological: Reports as per HPI Psychiatric: Reports as per HPI Endocrine: Reports as per HPI, Denies cold intolerance, Denies deepening of the voice, Denies excessive sweating, Denies excessive thirst, Denies fatigue, Denies flushing, Denies heat intolerance, Denies high blood sugars, Denies increase in ring/shoe/hat size, Denies low blood sugars, Denies nocturia, Denies palpitations, Denies polydipsia, Denies polyphagia, Denies polyuria, Denies pr optosis, Denies recent glucocorticoid use, Denies thyroid mass, Denies weight change Hematologic/Lymphatic: Reports as per HPI, Denies easy bleeding, Denies easy bruising, Denies lymphadenopathy, Denies lymphedema, Denies thrombophilia Allergic/Immunologic: Reports as per HPI, Denies allergic rhinitis, Denies anaphylaxis, Denies angioedema, Denies gluten intolerance, Denies persistent infections, Denies seasonal allergies, Denies urticaria, Denies wheezing Past Medical History Past Medical History: Diabetes Mellitus, GERD/Reflux, Hyperlipidemia, Hypertension, Myocardial Infarction ([place]), Pneumonia Additional Past Medical History / Comment(s): Complete heart block History of Any Multi-Drug Resistant Organisms: None Reported Past Surgical History: Cholecystectomy, Heart Catheterization, Hysterectomy, Pacemaker Past Psychological History: Anxiety Smoking Status: Never smoker Past Alcohol Use History: None Reported Past Drug Use History: None Reported - Past Family History Father Additional Family Medical History / Comment(s): Father in his 80s from a stroke. Mother Additional Family Medical History / Comment(s): Mother is with history of hypertension. Brother(s) Additional Family Medical History / Comment(s): Patient has one brother history of [place] at age 60. Sister(s) Family Medical History: Cancer Additional Family Medical History / Comment(s): breast Medications and Allergies Home Medications Medication Instructions Recorded Confirmed Type Calcium Carbonate [Calcium] 600 mg PO BID 11/03/18 11/25/18 History Fish Oil/Dha/Epa [Fish Oil 1,200 1 cap PO HS 11/03/18 11/25/18 History mg Fish Oil] Lisinopril [Prinivil] 10 mg PO BID 11/03/18 11/25/18 History Magnesium Oxide [Mag-Ox] 400 mg PO DAILY 11/03/18 11/25/18 History Omeprazole [PriLOSEC] 20 mg PO DAILY 11/03/18 11/25/18 History Simvastatin [Zocor] 20 mg PO HS 11/03/18 11/25/18 History metFORMIN HCL ER [Glucophage Xr] 1,000 mg PO AC-BRKFST 11/03/18 11/25/18 History metFORMIN HCL ER [Glucophage Xr] 500 mg PO AC-SUPPER 11/03/18 11/25/18 History Metoprolol Tartrate [Lopressor] 25 mg PO BID #60 tab 11/06/18 11/25/18 Rx Fluticasone Nasal Martin [Flonase 2 spr EA NOSTRIL DAILY 11/22/18 11/25/18 His tory Nasal Martin] Mag Hydrox/Al Hydrox/Simeth 30 ml PO Q6H PRN 11/22/18 11/25/18 History [Maalox] Psyllium Husk 100% [Metamucil 6 gm PO DAILY 11/22/18 11/25/18 History Packet] Cholecalciferol [Vitamin D3 (25 2,000 unit PO DAILY 11/24/18 11/25/18 History Mcg = 1000 Iu)] Allergies Allergy/AdvReac Type Severity Reaction Status Date / Time aspirin AdvReac Abdominal Verified 11/25/18 15:47 Pain Physical Exam Vitals: Vital Signs Temp Pulse Resp BP Pulse Ox 11/25/18 15:04 99.0 F 88 16 147/85 97 Intake and Output 11/25/18 11/25/18 11/25/18 06:59 14:59 22:59 Other: Weight 65.317 kg - Constitutional General appearance: average body habitus, cooperative - EENT Eyes: anicteric sclerae, EOMI, PERRLA, dentition normal, normal appearance ENT: NA/AT, normal oropharynx - Neck Neck: normal ROM - Respiratory Respiratory: bilateral: CTA, negative: diminished, dullness, rhonchi - Cardiovascular Costochondritis on exam Rhythm: regular Heart sounds: normal: S1, S2 - Gastrointestinal General gastrointestinal: normal bowel sounds, soft - Neurologic Neurologic: CNII-XII intact - Musculoskeletal Musculoskeletal: gait normal, strength equal bilaterally - Psychiatric Psychiatric: A&O x's 3, appropriate affect, intact judgment & insight Results CBC & Chem 7: 11/25/18 15:42 11/25/18 15:42 Labs: Abnormal Lab Results - Last 24 Hours (Table) 11/25/18 Range/Units 15:42 Glucose 184 H (74-99) mg/dL Total Bilirubin 0.1 L (0.2-1.3) mg/dL Assessment and Plan Plan: 1. Chest pain with costochondritis along with cardiac risk factors include diabetes mellitus, hyperlipidemia, hypertension, presenting with radiating to the left arm, patient will be seen i consultation by cardiology, patient would undergo a stress test secondary to risk factors while in the hospital, provided to troponins are negative, nitrates, aspirin, subcu heparin echocardiogram was done 11/04/2018, and recently had a dual-chamber pacemaker for complete heart block. We will obtain CTA to rule out pulmonary emboli 2. Complete heart block status post dual-chamber permanent pacemaker on 11/05/18 Echocardiogram shows EF of 50-55%, mild septal wall hypokinesia, left pericardial effusion, no aortic stenosis, mild TR and mild NH, no pulmonary hypertension borderline, RVSP of 33 3 Diabetes mellitus type 2. Metformin Continue NovoLog scale before meals and at bedtime. 4 Hypertension. Continue lisinopril 10 mg twice daily. Coreg 25 mg twice a day 5 Hyperlipidemia. Continue atorvastatin 20 mg at bedtime. 6 Gastroesophageal reflux disease. Continue omeprazole 20 mg daily. 7 DVT prophylaxis. Heparin subcu.
[2018-11-25] MEDS ORDERED: ASPIRIN 325 MG TAB PO SCH (17:00)
[2018-11-25 17:21] VITALS: RESP 18
[2018-11-25] MEDS ORDERED: metFORMIN 500 MG TAB PO SCH (17:30)
--- NOTE | 2018-11-25 17:48 | CT ---
EXAMINATION TYPE: CT angio chest DATE OF EXAM: 11/25/2018 5:41 PM COMPARISON: None HISTORY: Pleurisy dyspnea chest pain CT DLP: 299.2 mGycm Automated exposure control for dose reduction was used. CONTRAST: CTA scan of the thorax is performed with IV Contrast, patient injected with 100 mL of Isovue 370, pul monary embolism protocol. . There are 3-D post processed images. FINDINGS: The lungs are clear of consolidation. There is slight coarsening of interstitial markings at the lung bases. There is no pleural effusion. Heart is enlarged. There is no pericardial effusion. There is normal contrast opacification of the pulmonary arteries. I see no filling defect. Thoracic a jeovany is intact without evidence of aneurysm or dissection. Ascending aorta measures 3 cm. There is no mediastinal adenopathy. There is 1.6 cm low-density rounded lesion right thyroid lobe. Thyroid gland is enlarged. There is enlargement of the isthmus. There are no hilar masses. The bony thorax appears intact. IMPRESSION: NO EVIDENCE OF PULMONARY EMBOLISM. SUBSEGMENTAL ATELECTASIS AT THE LUNG BASES. IRREGULAR ENLARGED THYROID GLAND CONSISTENT WITH MULTINODULAR GOITER.
[2018-11-25 18:16] VITALS: BMI 27.1
[2018-11-25] MEDS: HEPARIN SODIUM,PORCINE 5,000 UNIT/ML 1 ML VIAL SQ SCH (18:57)
[2018-11-25 20:20] LABS: Glucose,Whole Blood 155 mg/dL (75-99)
[2018-11-25] MEDS: CALCIUM CARBONATE 500 MG CHEWABLE PO SCH (20:26)
[2018-11-25] MEDS: LISINOPRIL 10 MG TAB PO SCH (20:26)
[2018-11-25] MEDS: METOPROLOL TARTRATE 25 MG TAB PO SCH (20:27)
[2018-11-25] MEDS: INSULIN ASPART (NovoLOG) 100 UNIT/ML VIAL SQ SCH (20:27)
[2018-11-25] MEDS: ATORVASTATIN 10 MG TAB PO SCH (20:27)
[2018-11-25] MEDS: ACETAMINOPHEN TAB 325 MG TAB PO PRN (20:27)
[2018-11-26] MEDS: ACETAMINOPHEN TAB 325 MG TAB PO PRN (00:26)
[2018-11-26] MEDS: NITROGLYCERIN OINT 1 INCH/GM PACKET TOPICAL SCH ×2 (03:06→05:39)
[2018-11-26] MEDS: HEPARIN SODIUM,PORCINE 5,000 UNIT/ML 1 ML VIAL SQ SCH ×4 (03:07→23:28)
[2018-11-26 04:33] LABS: Cholesterol 113 mg/dL (<200); HDL Cholesterol 33 mg/dL (40-60); LDL Cholesterol,Calculated 15 mg/dL (0-99); Triglycerides 327 mg/dL (<150)
[2018-11-26 06:47] LABS: Glucose,Whole Blood 144 mg/dL (75-99)
[2018-11-26] MEDS ORDERED: metFORMIN 500 MG TAB PO SCH (07:30)
[2018-11-26] MEDS ORDERED: DIPYRIDAMOLE IV ONE (07:59)
[2018-11-26] MEDS ORDERED: CAFFEINE CITRATE 60 MG/3 ML VIAL IV PRN (07:59)
[2018-11-26] MEDS ORDERED: AMINOPHYLLINE 500 MG/20 ML VIAL IV PRN (07:59)
[2018-11-26] MEDS ORDERED: SODIUM CHLORIDE 0.9% IV ONE (07:59)
--- NOTE | 2018-11-26 08:22 | CONS ---
CONSULTATION Mrs. Mora is a 63-year-old female with a history of diabetes, hypertension, and hyperlipidemia who presented to the emergency room with symptoms of chest discomfort. The patient was in the hospital recently with a complete heart block, was evaluated by Dr. Amaya and subsequently was found to have a complete heart block and underwent permanent pacemaker implantation. At that time her echocardiogram revealed a preserved left ventricular size and systolic function with apical septal hypokinesis. The patient presented with the chest discomfort that is not exertional in pattern while she is sitting it is on and off at times respirophasic. She is average in exercise tolerance, has no exertional chest discomfort. She has no prior history of myocardial infarction or documented angina pectoris. She was scheduled to undergo a myocardial perfusion imaging today as an outpatient. She has no peripheral edema. No dizziness. No palpitation. Her breathing is stable. She has no PND, no orthopnea. Her coronary risk factors are remarkable for hypertension, hyperlipidemia and diabetes. She is a nonsmoker. MEDICATION: Her medications at home include metformin, simvastatin 20 mg daily, Lopressor 25 mg twice a day, lisinopril 10 mg twice a day, calcium, vitamin D, fish oil, Flonase, mag oxide, Prilosec. REVIEW OF SYSTEMS: RESPIRATORY SYSTEM: She has mild dyspnea. No recent wheezing or cough. GI SYSTEM: No recent GI bleed. No peptic ulcer disease. SYSTEM: No dysuria or hematuria. NERVOUS SYSTEM: No stroke or seizure. PHYSICAL EXAMINATION: She is a 63-year-old female, alert, oriented, in no apparent distress. Blood pressure 118/70 with the heart rate in the 60s. HEAD: Normocephalic. EYES: Sclerae anicteric. NECK: Good carotid upstroke. No bruit. No jugular venous distention. LUNGS: Clear to auscultation. HEART: Regular rate and rhythm. S1, S2. No S3. No rub. Pacemaker site clean. ABDOMEN: Soft, nontender. Positive bowel sounds. No organomegaly. EXTREMITIES: No edema. Intact distal pulses. LAB DATA: Lab data revealed cholesterol 113, LDL of 15, triglycerides 327, BUN and creatinine 12 and 0.74. Troponin less than 0.012 for 3 samples. Hemoglobin of 13.1. EKG revealed a sinus mechanism with 100% ventricular pacing. Chest CT angiogram shows no evidence of pulmonary embolism. IMPRESSION: 1. Chest discomfort has atypical features for ischemic heart disease probably noncardiac. 2. Status post recent permanent pacemaker implantation for complete heart block. No evidence of pacemaker malfunction. 3. Hypertension. 4. Hyperlipidemia. 5. Diabetes mellitus. RECOMMENDATION: From the cardiac standpoint, I would recommend to proceed with a myocardial perfusion imaging to assess her status and guide her treatment. If there is no evidence of stress- induced ischemia then no further cardiac workup will be needed. Thank you for this consult. We will follow with you. MMZIL / IJN: [id number] /
[2018-11-26] MEDS: INSULIN ASPART (NovoLOG) 100 UNIT/ML VIAL SQ SCH ×4 (08:51→20:22)
[2018-11-26] MEDS ORDERED: ASPIRIN 325 MG TAB PO SCH (09:00)
[2018-11-26 11:49] LABS: Hemoglobin A1C 6.9 % (4.0-6.0)
[2018-11-26 11:54] LABS: Glucose,Whole Blood 136 mg/dL (75-99)
[2018-11-26] MEDS: LISINOPRIL 10 MG TAB PO SCH ×2 (12:15→19:51)
[2018-11-26] MEDS: METOPROLOL TARTRATE 25 MG TAB PO SCH ×2 (12:15→19:51)
--- NOTE | 2018-11-26 12:15 | NM ---
EXAMINATION TYPE: NM stress persantine cardiolit DATE OF EXAM: 11/26/2018 COMPARISON: NONE HISTORY: Chest pain TECHNIQUE: After the intravenous administration of 10.2 mCi Tc 99m Sestamibi - Cardiolite resting SP ECT images acquired 75 minutes post injection. The patient received 37.2 mg Persantine, 25.8 mCi Tc 99m Sestamibi - Stress images obtained 45 minute s post injection FINDINGS: Review of stress and rest SPECT images demonstrates decreased apical pharmaceutical uptake on stress as compared to rest images. Gated analysis shows normal wall motion with an estimated left ventricul ar ejection fraction of 61 %. 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
[2018-11-26] MEDS: CALCIUM CARBONATE 500 MG CHEWABLE PO SCH ×2 (12:16→19:51)
[2018-11-26] MEDS: MAGNESIUM OXIDE 400 MG TAB PO SCH (12:16)
[2018-11-26] MEDS: ASPIRIN 81 MG PO SCH (12:16)
[2018-11-26] MEDS: PANTOPRAZOLE 40 MG TABLET PO SCH (12:16)
[2018-11-26] MEDS: FLUTICASONE 50MCG/SPRAY NASAL 16GM EA NOSTRIL SCH (12:17)
--- NOTE | 2018-11-26 12:27 | EST ---
EXERCISE STRESS DATE OF SERVICE: 11/26/2018 AGE: 63 SEX: Female HT: 5'1" WT: 144 pounds PROTOCOL: Persantine Cardiolite STAGE: DURATION OF EXERCISE: HEART RATE REST: 74 BLOOD PRESSURE REST: 150/81 MAXIMUM HEART RATE ACHIEVED: 102 MAXIMUM BLOOD PRESSURE: 150/81 85% MPHR: 132 100% MPHR: 155 METS: INDICATIONS: Chest pain. CLINICAL INFORMATION: Baseline rhythm is a sinus mechanism, rate of 74, paced rhythm. Baseline blood pressure 150/81 mmHg. Patient received an infusion of dipyridamole. Electrocardiograph monitoring revealed no evidence of diagnostic ischemic ST deviation. Cardiolite was injected per protocol. CONCLUSION: 1. Nondiagnostic electrocardiograph stress testing. 2. Nuclear images will be reported separately. MMODL / IJN: [id number] /
[2018-11-26] MEDS ORDERED: ALPRAZolam 0.5 MG TAB PO PRN (13:42)
[2018-11-26] MEDS ORDERED: SODIUM CHLORIDE 0.9% 1,000 ML in EMPTY BAG 1 BAG IV ONE (13:42)
[2018-11-26] MEDS ORDERED: ALPRAZolam 0.25 MG TAB PO PRN (13:42)
[2018-11-26] MEDS: SODIUM CHLORIDE 0.9% 500 ML 500 ML IV SCH (13:53)
--- NOTE | 2018-11-26 13:57 | P.PN ---
Subjective Progress Note Date: 11/26/18 This is a 62-year-old female patient of Dr. Lamonte Amaya with a past medical history of diabetes mellitus type 2, hypertension, hyperlipidemia, gastroesophageal reflux disease. Who was admitted here 11/04/2018 Patient gives history of generalized weakness especially to the lower extremities. She tried to walk to the drugstore to get her prescription but was unable to do that. And was noted to have a complete heart block status post pacemaker placement on 11/05/[address] AILYN Gutierrez, dual-chamber permanent pacemaker implantation. No complications including pneumothorax, and was discharged to home. . No history of CVA She denies any chest pain, shortness of breath. Nausea and has resolved. No vomiting. She denies any history of Lyme disease, camping, tick bites. .11/06/18: Echocardiogram reveals EF 50-55%, mild concentric left ventricle hypertrophy, mild mitral regurgitation, mild tricuspid regurgitation, borderline pulmonary artery hypertension, right ventricular systolic pressure 33.2. she comes seen in the emergency room, with multiple visits on , with fever and nausea, 11/22 chest pain, 11/24 with abdominal pain, returned again 11/24 with chest pain, imaging studies in this ER visits include CAT scan of the abdomen and pelvis shows postcholecystectomy, 1 cm filling hemangioma right hepatic lobe, pancreas normal spleen normal adrenals normal kidneys normal bowel suboptimal evaluation, redundant sigmoid colon, tiny amount of free fluid pelvic cul-de-sac, uncertain etiology but this abnormal finding in postmenopausal female, no greater than 1 cm lymph node, no suspicious adnexal masses shoulder x-ray negative chest x-ray shows no pneumothorax not active cardiopulmonary disease no CHF, 3 troponins that are negative from 913 04/14/2021, lipase normal 97, kidneys normal, INR 0.9, urinalysis negative, EKG shows atrial sensed ventricular paced rhythm heart rate of 85. No stress test was done recently, echocardiogram on 11/04/2018 shows EF 55%, apical septal wall motion, with hypokinesia, no aortic stenosis, mild MR mild TR, borderline pulmonary h ypertension RVSP 33, no pericardial effusion Patient now comes in to emergency room secondary to chest pain radiating down to the left arm, with difficulty of breathing every time she gets chest pain, no cough no fever no chills, no motor weakness, no lightheadedness or dizziness, fever or chills has resolved, abdominal pain has resolved pain is in the sternum, with tenderness on palpation implantation site for the pacemaker left pectoralis, no hematoma, on examination no cellulitis. ER labs troponin 1 negative. Per patient she was scheduled to have a chemical stress test in [address] Amaya which was scheduled in his office 11/26: CTA of the chest that showed no evidence of pulmonary embolism. Subsegmental atelectasis at the lung bases. Irregular enlarged thyroid gland consistent with multinodular goiter. Troponins have been negative on 3 draws. Triglycerides 327, cholesterol 113, LDL 15, HDL 33. Hemoglobin A1c 6.9. Persantine stress test revealed pharmacologically induced apical left ventricular myocardial ischemia. Patient is scheduled for heart catheterization tomorrow. Patient denies having any chest pain or palpitations. IV fluids will be started. Patient is eating much at this time. Objective - Vital Signs Vital signs: Vital Signs Temp 98.1 F 11/26/18 11:58 Pulse 77 11/26/18 11:58 Resp 18 11/26/18 11:58 BP 132/85 11/26/18 11:58 Pulse Ox 100 11/26/18 11:58 Intake & Output 11/25/18 11/26/18 11/26/18 18:59 06:59 18:59 Weight 65.317 kg 65.317 kg Other: Voiding Method Toilet Toilet Toilet # Voids 1 1 - Exam Review Of Systems: Constitutional: No fever, no chills, no night sweats. EENT: No headache. No sore throat. Lungs: No shortness of breath, cough, no sputum production. No wheezing. Cardiovascular: No chest pain, no lower extremity edema. No palpitations. No lightheadedness or dizziness. No syncopal episodes. Abdominal: No abdominal pain. No nausea, vomiting. No diarrhea. No constipati on. No bloody or tarry stools. No loss of appetite. Genitourinary: No dysuria, increased frequency, urgency. No urinary retention. Musculoskeletal: No myalgias. No muscle weakness, no gait dysfunction, no frequent falls. No back pain. No neck pain. Integumentary: No wounds, no lesions. No rash or pruritus. Neurologic: No aphasia. No facial droop. No change in mentation. No head injury. No headache. No paralysis. Psychiatric: No depression. No anxiety. No mood swings. Endocrine: No abnormal blood sugars. No weight change. No excessive sweating or thirst. No cold intolerance. Gen: This is a 63-year-old female. Patient is sitting up in bed and eating lunch. Family member at bedside. HEENT: Head is atraumatic, normocephalic. Pupils equal, round. Sclerae is anicte brea. NECK: Supple. No JVD. No lymphadenopathy. No thyromegaly. LUNGS: Clear to auscultation. No wheezes or rhonchi. No intercostal retractions. No accessory muscle usage. HEART: Regular rate and rhythm. No murmur. ABDOMEN: Soft. Bowel sounds are present. No masses. No tenderness. EXTREMITIES: No pedal edema. No calf tenderness. Dorsalis pedis palpable bilaterally. NEUROLOGICAL: Patient is awake, alert and oriented x3. Cranial nerves 2 through 12 are grossly intact. - Labs CBC & Chem 7: 11/25/18 15:42 11/25/18 15:42 Labs: Abnormal Lab Results - Last 24 Hours (Table) 11/25/18 11/25/18 11/26/18 Range/Units 15:42 20:19 03:59 Glucose 184 H (74-99) mg/dL POC Glucose (mg/dL) 155 H (75-99) mg/dL Hemoglobin A1c 6.9 H (4.0-6.0) % Total Bilirubin 0.1 L (0.2-1.3) mg/dL Triglycerides (<150) mg/dL HDL Cholesterol (40-60) mg/dL 11/26/18 11/26/18 11/26/18 Range/Units 03:59 06:45 11:47 Glucose (74-99) mg/dL POC Glucose (mg/dL) 144 H 136 H (75-99) mg/dL Hemoglobin A1c (4.0-6.0) % Total Bilirubin (0.2-1.3) mg/dL Triglycerides 327 H (<150) mg/dL HDL Cholesterol 33 L (40-60) mg/dL Assessment and Plan Plan: 1. Chest pain with positive stress test. Patient has been scheduled for heart catheterization tomorrow. Cardiology consult appreciated. 2. Complete heart block status post dual-chamber permanent pacemaker on 11/05/18 Echocardiogram shows EF of 50-55%, mild septal wall hypokinesia, left pericardial effusion, no aortic stenosis, mild TR and mild NC, no pulmonary h ypertension borderline, RVSP of 33 3 Diabetes mellitus type 2. Metformin on hold. Continue NovoLog scale before meals and at bedtime. 4 Hypertension. Continue lisinopril 10 mg twice daily. Coreg 25 mg twice a day 5 Hyperlipidemia. Continue atorvastatin 20 mg at bedtime. 6 Gastroesophageal reflux disease. Continue omeprazole 20 mg daily. 7 DVT prophylaxis. Heparin subcu. Discharge plan: Home Impression and plan of care have been directed as dictated by the signing physician. Jami Ramires nurse practitioner acting as scribe for signing physician.
[2018-11-26 16:29] LABS: Glucose,Whole Blood 202 mg/dL (75-99)
[2018-11-26] MEDS: ATORVASTATIN 10 MG TAB PO SCH (19:51)
[2018-11-26 20:01] LABS: Glucose,Whole Blood 110 mg/dL (75-99)
[2018-11-27] MEDS: ACETAMINOPHEN TAB 325 MG TAB PO PRN ×3 (01:19→19:12)
[2018-11-27 06:42] LABS: Glucose,Whole Blood 167 mg/dL (75-99)
[2018-11-27] MEDS: PANTOPRAZOLE 40 MG TABLET PO SCH (08:23)
[2018-11-27] MEDS: HEPARIN SODIUM,PORCINE 5,000 UNIT/ML 1 ML VIAL SQ SCH ×3 (08:23→23:50)
[2018-11-27] MEDS: FLUTICASONE 50MCG/SPRAY NASAL 16GM EA NOSTRIL SCH (08:23)
[2018-11-27] MEDS: CALCIUM CARBONATE 500 MG CHEWABLE PO SCH ×2 (08:24→20:25)
[2018-11-27] MEDS: ASPIRIN 81 MG PO SCH (08:24)
[2018-11-27] MEDS: LISINOPRIL 10 MG TAB PO SCH ×2 (08:24→20:27)
[2018-11-27] MEDS: INSULIN ASPART (NovoLOG) 100 UNIT/ML VIAL SQ SCH ×4 (08:31→20:29)
--- NOTE | 2018-11-27 11:36 | P.PN ---
Subjective This is a pleasant 63-year-old female past medical history significant for complete heart block s/p recent permanent pacemaker implantation, diabetes mellitus, hypertension, dyslipidemia and gastroesophageal reflux disease. She underwent a persantine stress test yesterday that revealed reversible ischemia in the apical aspect. She is scheduled to undergo cardiac catheterization with Dr. Amaya. She is seen and examined sitting up in bed in no acute distress. She complains of intermittent episodes of chest pressure in left precordial region, typically at rest not associated with activity. Blood pressure 146/84 heart rate 85 afebrile maintaining oxygen saturation on room air. Currently maintained on aspirin 81 mg daily, atrovastatin 10 mg daily, lisinopril 10 mg BID, lopressor 25 mg BID. GENERAL: This is a 63-year-old female in no apparent distress at the time of my examination. HEENT: Head is atraumatic, normocephalic. Pupils are equal, round. Sclerae anicteric. Conjunctivae are clear. Mucous membranes of the mouth are moist. Neck is supple. There is no jugular venous distention. No carotid bruit is heard. LUNGS: Clear to auscultation no wheezes, rales or rhonchi. No chest wall tenderness is noted on palpation or with deep breathing. HEART: Regular rate and rhythm without murmurs, rubs or gallops. S1 and S2 heard. EXTREMITIES: No evidence of peripheral edema and no calf tenderness noted. ASSESSMENT Chest pain, an acute coronary event has been ruled out. Abnormal stress test. Permanent pacemaker implantation secondary to complete heart block Hypertension Dyslipidemia Diabetes mellitus PLAN Recommend proceeding with cardiac catheterization to assess for underlying CAD. I have discussed the risks, benefits and alternative therapies for the above- mentioned procedure and for both sedation/analgesia as well as necessary blood product administration, if indicated, as they pertain to this patient. The patient has indicated understanding and acceptance of the risks and procedures discussed. Questions have been answered appropriately and she is agreeable to move forward with the above stated procedure. Further recommendations to follow. Nurse Practitioner note has been reviewed, I agree with a documented findings and plan of care. Patient was seen and examined. Objective - Vital Signs Vital signs: Vital Signs Temp 98.3 F 11/27/18 07:54 Pulse 85 11/27/18 07:54 Resp 18 11/27/18 07:54 BP 146/84 11/27/18 07:54 Pulse Ox 96 11/27/18 07:54 Intake & Output 11/26/18 11/27/18 11/27/18 18:59 06:59 18:59 Intake Total 400 Balance 400 Weight 65.317 kg Intake: Oral 400 Other: Voiding Method Toilet Toilet Toilet # Voids 1 1 - Labs CBC & Chem 7: 11/25/18 15:42 11/25/18 15:42 Labs: Abnormal Lab Results - Last 24 Hours (Table) 11/26/18 11/26/18 11/26/18 Range/Units 03:59 11:47 16:28 POC Glucose (mg/dL) 136 H 202 H (75-99) mg/dL Hemoglobin A1c 6.9 H (4.0-6.0) % 11/26/18 11/27/18 Range/Units 20:00 06:40 POC Glucose (mg/dL) 110 H 167 H (75-99) mg/dL Hemoglobin A1c (4.0-6.0) %
[2018-11-27 11:38] LABS: Glucose,Whole Blood 139 mg/dL (75-99)
[2018-11-27] MEDS: NITROGLYCERIN OINT 1 INCH/GM PACKET TOPICAL SCH ×4 (11:48→23:49)
[2018-11-27] MEDS: MAGNESIUM OXIDE 400 MG TAB PO SCH (12:22)
[2018-11-27] MEDS: METOPROLOL TARTRATE 25 MG TAB PO SCH ×2 (12:25→20:24)
--- NOTE | 2018-11-27 13:37 | P.PN ---
Subjective Progress Note Date: 11/27/18 This is a 62-year-old female patient of Dr. Lamonte Amaya with a past medical history of diabetes mellitus type 2, hypertension, hyperlipidemia, gastroesophageal reflux disease. Who was admitted here 11/04/2018 Patient gives history of generalized weakness especially to the lower extremities. She tried to walk to the drugstore to get her prescription but was unable to do that. And was noted to have a complete heart block status post pacemaker placement on 11/05/[address] AILYN Gutierrez, dual-chamber permanent pacemaker implantation. No complications including pneumothorax, and was discharged to home. . No history of CVA She denies any chest pain, shortness of breath. Nausea and has resolved. No vomiting. She denies any history of Lyme disease, camping, tick bites. .11/06/18: Echocardiogram reveals EF 50-55%, mild concentric left ventricle hypertrophy, mild mitral regurgitation, mild tricuspid regurgitation, borderline pulmonary artery hypertension, right ventricular systolic pressure 33.2. she comes seen in the emergency room, with multiple visits on , with fever and nausea, 11/22 chest pain, 11/24 with abdominal pain, returned again 11/24 with chest pain, imaging studies in this ER visits include CAT scan of the abdomen and pelvis shows postcholecystectomy, 1 cm filling hemangioma right hepatic lobe, pancreas normal spleen normal adrenals normal kidneys normal bowel suboptimal evaluation, redundant sigmoid colon, tiny amount of free fluid pelvic cul-de-sac, uncertain etiology but this abnormal finding in postmenopausal female, no greater than 1 cm lymph node, no suspicious adnexal masses shoulder x-ray negative chest x-ray shows no pneumothorax not active cardiopulmonary disease no CHF, 3 troponins that are negative from 913 04/14/2021, lipase normal 97, kidneys normal, INR 0.9, urinalysis negative, EKG shows atrial sensed ventricular paced rhythm heart rate of 85. No stress test was done recently, echocardiogram on 11/04/2018 shows EF 55%, apical septal wall motion, with hypokinesia, no aortic stenosis, mild MR mild TR, borderline pulmonary h ypertension RVSP 33, no pericardial effusion Patient now comes in to emergency room secondary to chest pain radiating down to the left arm, with difficulty of breathing every time she gets chest pain, no cough no fever no chills, no motor weakness, no lightheadedness or dizziness, fever or chills has resolved, abdominal pain has resolved pain is in the sternum, with tenderness on palpation implantation site for the pacemaker left pectoralis, no hematoma, on examination no cellulitis. ER labs troponin 1 negative. Per patient she was scheduled to have a chemical stress test in [address] Amaya which was scheduled in his office 11/26: CTA of the chest that showed no evidence of pulmonary embolism. Subsegmental atelectasis at the lung bases. Irregular enlarged thyroid gland consistent with multinodular goiter. Troponins have been negative on 3 draws. Triglycerides 327, cholesterol 113, LDL 15, HDL 33. Hemoglobin A1c 6.9. Persantine stress test revealed pharmacologically induced apical left ventricular myocardial ischemia. Patient is scheduled for heart catheterization tomorrow. Patient denies having any chest pain or palpitations. IV fluids will be started. Patient is eating much at this time. 11/27: Patient has been afebrile, heart rate 85, blood pressure 146/84, pulse ox 96% on room air. Blood sugars running between 110 and 202. Patient is scheduled for heart catheterization on Monday. Patient has continued with intermittent episodes of chest pain. She has Nitropaste available. Patient is hoping to go to subacute rehab and PT and OT are following. Rolator prescription has been signed for assistant case manager to obtain. Objective - Vital Signs Vital signs: Vital Signs Temp 98.3 F 11/27/18 07:54 Pulse 85 11/27/18 07:54 Resp 18 11/27/18 07:54 BP 146/84 11/27/18 07:54 Pulse Ox 96 11/27/18 07:54 Intake & Output 11/26/18 11/27/18 11/27/18 18:59 06:59 18:59 Intake Total 400 Balance 400 Weight 65.317 kg Intake: Oral 400 Other: Voiding Method Toilet Toilet Toilet # Voids 1 1 - Exam Review Of Systems: Constitutional: No fever, no chills, no night sweats. EENT: No headache. No sore throat. Lungs: No shortness of breath, cough, no sputum production. No wheezing. Cardiovascular: reports chest pain, no lower extremity edema. No palpitations. No lightheadedness or dizziness. No syncopal episodes. Abdominal: No abdominal pain. No nausea, vomiting. No diarrhea. No constipation. No bloody or tarry stools. No loss of appetite. Genitourinary: No dysuria, increased frequency, urgency. No urinary retention. Musculoskeletal: No myalgias. No muscle weakness, no gait dysfunction, no frequent falls. No back pain. No neck pain. Integumentary: No wounds, no lesions. No rash or pruritus. Neurologic: No aphasia. No facial droop. No change in mentation. No head injury. No headache. No paralysis. Psychiatric: No depression. No anxiety. No mood swings. Endocrine: No abnormal blood sugars. No weight change. No excessive sweating or thirst. No cold intolerance. Gen: This is a 63-year-old female. Patient is sitting up in bed and appears to be comfortable. HEENT: Head is atraumatic, normocephalic. Pupils equal, round. Sclerae is anicteric. NECK: Supple. No JVD. No lymphadenopathy. No thyromegaly. LUNGS: Clear to auscultation. No wheezes or rhonchi. No intercostal retractions. No accessory muscle usage. HEART: Regular rate and rhythm. No murmur. ABDOMEN: Soft. Bowel sounds are present. No masses. No tenderness. EXTREMITIES: No pedal edema. No calf tenderness. Dorsalis pedis palpable bilaterally. NEUROLOGICAL: Patient is awake, alert and oriented x3. Cranial nerves 2 through 12 are grossly intact. - Labs CBC & Chem 7: 11/25/18 15:42 11/25/18 15:42 Labs: Abnormal Lab Results - Last 24 Hours (Table) 11/26/18 11/26/18 11/26/18 Range/Units 03:59 11:47 16:28 POC Glucose (mg/dL) 136 H 202 H (75-99) mg/dL Hemoglobin A1c 6.9 H (4.0-6.0) % 11/26/18 11/27/18 Range/Units 20:00 06:40 POC Glucose (mg/dL) 110 H 167 H (75-99) mg/dL Hemoglobin A1c (4.0-6.0) % Assessment and Plan Plan: 1. Chest pain with positive stress test. Patient has been scheduled for heart catheterization on Monday. Cardiology consult appreciated. Nitro paste started. 2. Complete heart block status post dual-chamber permanent pacemaker on 11/05/18 Echocardiogram shows EF of 50-55%, mild septal wall hypokinesia, left pericardial effusion, no aortic stenosis, mild TR and mild KS, no pulmonary hype rtension borderline, RVSP of 33 3 Diabetes mellitus type 2. Metformin on hold. Continue NovoLog scale before meals and at bedtime. 4 Hypertension. Continue lisinopril 10 mg twice daily. Coreg 25 mg twice a day 5 Hyperlipidemia. Continue atorvastatin 20 mg at bedtime. 6 Gastroesophageal reflux disease. Continue omeprazole 20 mg daily. 7 DVT prophylaxis. Heparin subcu. Discharge plan: Home Impression and plan of care have been directed as dictated by the signing physician. Jami Ramires nurse practitioner acting as scribe for signing physician.
[2018-11-27 16:43] LABS: Glucose,Whole Blood 165 mg/dL (75-99)
[2018-11-27] MEDS: SODIUM CHLORIDE 0.9% 500 ML 500 ML IV SCH (17:29)
[2018-11-27] MEDS: ATORVASTATIN 10 MG TAB PO SCH (20:25)
[2018-11-27 20:39] LABS: Glucose,Whole Blood 135 mg/dL (75-99)
[2018-11-28] MEDS: ACETAMINOPHEN TAB 325 MG TAB PO PRN ×2 (03:27→11:26)
[2018-11-28] MEDS: NITROGLYCERIN OINT 1 INCH/GM PACKET TOPICAL SCH (06:10)
[2018-11-28 06:35] LABS: Glucose,Whole Blood 169 mg/dL (75-99)
[2018-11-28] MEDS: INSULIN ASPART (NovoLOG) 100 UNIT/ML VIAL SQ SCH ×2 (07:10→11:51)
[2018-11-28] MEDS: FLUTICASONE 50MCG/SPRAY NASAL 16GM EA NOSTRIL SCH (08:59)
[2018-11-28] MEDS: PANTOPRAZOLE 40 MG TABLET PO SCH (08:59)
[2018-11-28] MEDS: CALCIUM CARBONATE 500 MG CHEWABLE PO SCH (08:59)
[2018-11-28] MEDS: MAGNESIUM OXIDE 400 MG TAB PO SCH (09:00)
[2018-11-28] MEDS: ASPIRIN 81 MG PO SCH (09:00)
[2018-11-28] MEDS: METOPROLOL TARTRATE 25 MG TAB PO SCH (09:00)
[2018-11-28] MEDS: LISINOPRIL 10 MG TAB PO SCH (09:00)
[2018-11-28] MEDS ORDERED: fentaNYL (PF) 50 MCG/ML 2 ML AMP ONE (09:12)
[2018-11-28] MEDS ORDERED: LIDOCAINE 1% INJ 10MG/ML (20 ML MDV) ONE (09:12)
[2018-11-28] MEDS ORDERED: SODIUM CHLORIDE 0.9% 500 ML 500 ML IV ONE (09:23)
[2018-11-28] MEDS ORDERED: MIDAZOLAM (PF) 2 MG/2 ML VIAL IVP ONE (09:34)
[2018-11-28] MEDS ORDERED: fentaNYL (PF) 50 MCG/ML 2 ML AMP IVP ONE (09:34)
[2018-11-28] MEDS ORDERED: LIDOCAINE 1% INJ 10MG/ML (20 ML MDV) SQ ONE (09:37)
[2018-11-28] MEDS ORDERED: IOPAMIDOL-370 125ML BTL INJ ONE (09:54)
[2018-11-28] MEDS ORDERED: RX INFO: IV CONTRAST WAS GIVEN 1 EACH MISC MISCELLANE PRN (10:03)
--- NOTE | 2018-11-28 10:14 | CC ---
CARDIAC CATHETERIZATION REPORT INDICATION: Chest pain with abnormal stress test showing ischemia involving the anteroapical wall. PROCEDURE NOTE: After obtaining informed consent, left heart catheterization, coronary angiogram were performed via the right femoral artery using standard [place] catheters the patient tolerated the procedure well without any obvious immediate complications. A femoral angiogram was performed and Angio-Seal was deployed for hemostasis. FINDINGS: HEMODYNAMICS: Left ventricular end-diastolic pressure is 8 to 12 mm. There is no significant gradient across the aortic valve. LEFT VENTRICULOGRAM: Left ventriculogram is not performed. ANGIOGRAPHIC DATA: LEFT MAIN CORONARY ARTERY: Left main coronary artery is a normal-sized vessel and is free of stenosis. It divides into left anterior descending coronary artery and circumflex coronary artery. LAD and its branches, circumflex coronary artery and its branches are free of significant stenosis. LAD is a small caliber vessel. RIGHT CORONARY ARTERY: Right coronary artery is a large codominant system and is free of significant disease. CONCLUSION: 1. Normal coronary arteries. 2. Normal left ventricular end-diastolic pressure. PLAN: Patient's stress test is a false positive stress test and her management is going to be in the form of risk factor modification. Thank you for allowing us to participate in this pleasant lady. MMODL / IJN: [id number] /
[2018-11-28 10:19] VITALS: TEMP 97.2
[2018-11-28] MEDS: HEPARIN SODIUM,PORCINE 5,000 UNIT/ML 1 ML VIAL SQ SCH (11:26)
[2018-11-28 11:38] LABS: Glucose,Whole Blood 133 mg/dL (75-99)
[2018-11-28 13:02] VITALS: BP 92/50; PULSE 63
[2018-11-28] MEDS: SODIUM CHLORIDE 0.9% 500 ML 500 ML IV SCH (14:29)
--- NOTE | 2018-11-28 15:59 | P.DS ---
Providers Date of admission: 11/25/18 16:40 Expected date of discharge: 11/28/18 Attending physician: Cary Valentino Consults: 11/25/18 16:40 Consult Physician Urgent Consulting Provider: [facility] Consult Reason/Comments: Chest pain Do you want consulting provider notified?: Yes Primary care physician: Kj Aburto [facility] Course: This is a 62-year-old female patient of Dr. Lamonte Amaya with a past medical history of diabetes mellitus type 2, hypertension, hyperlipidemia, gastroesophageal reflux disease. Who was admitted here 11/04/2018 Patient gives history of generalized weakness especially to the lower extremities. She tried to walk to the drugstore to get her prescription but was unable to do that. And was noted to have a complete heart block status post pacemaker placement on 11/05/[address] AILYN Gutierrez, dual-chamber permanent pacemaker implantation. No complications including pneumothorax, and was discharged to home. . No history of CVA She denies any chest pain, shortness of breath. Nausea and has resolved. No vomiting. She denies any history of Lyme disease, camping, tick bites. .11/06/18: Echocardiogram reveals EF 50-55%, mild concentric left ventricle hypertrophy, mild mitral regurgitation, mild tricuspid regurgitation, borderline pulmonary artery hypertension, right ventricular systolic pressure 33.2. she comes seen in the emergency room, with multiple visits on , with fever and nausea, 11/22 chest pain, 11/24 with abdominal pain, returned again 11/24 with chest pain, imaging studies in this ER visits include CAT scan of the abdomen and pelvis shows postcholecystectomy, 1 cm filling hemangioma right hepatic lobe, pancreas normal spleen normal adrenals normal kidneys normal bowel suboptimal evaluation, redundant sigmoid colon, tiny amount of free fluid pelvic cul-de-sac, uncertain etiology but this abnormal finding in postmenopausal female, no greater than 1 cm lymph node, no suspicious adnexal masses shoulder x-ray negative chest x-ray shows no pneumothorax not active cardiopulmonary disease no CHF, 3 troponins that are negative from 913 04/14/2021, lipase normal 97, kidneys normal, INR 0.9, urinalysis negative, EKG shows atrial sensed ventricular paced rhythm heart rate of 85. No stress test was done recently, echocardiogram on 11/04/2018 shows EF 55%, apical septal wall motion, with hypokinesia, no aortic stenosis, mild MR mild TR, borderline pulmonary hypertension RVSP 33, no pericardial effusion Patient now comes in to emergency room secondary to chest pain radiating down to the left arm, with difficulty of breathing every time she gets chest pain, no cough no fever no chills, no motor weakness, no lightheadedness or dizziness, fever or chills has resolved, abdominal pain has resolved pain is in the sternum, with tenderness on palpation implantation site for the pacemaker left pectoralis, no hematoma, on examination no cellulitis. ER labs troponin 1 negative. Per patient she was scheduled to have a chemical stress test in [address] Amaya which was scheduled in his office 11/26: CTA of the chest that showed no evidence of pulmonary embolism. Subsegmental atelectasis at the lung bases. Irregular enlarged thyroid gland consistent with multinodular goiter. Troponins have been negative on 3 draws. Triglycerides 327, cholesterol 113, LDL 15, HDL 33. Hemoglobin A1c 6.9. Persantine stress test revealed pharmacologically induced apical left ventricular myocardial ischemia. Patient is scheduled for heart catheterization tomorrow. Patient denies having any chest pain or palpitations. IV fluids will be started. Patient is eating much at this time. 11/27: Patient has been afebrile, heart rate 85, blood pressure 146/84, pulse ox 96% on room air. Blood sugars running between 110 and 202. Patient is scheduled for heart catheterization on Monday. Patient has continued with intermittent episodes of chest pain. She has Nitropaste available. Patient is hoping to go to subacute rehab and PT and OT are following. Rolator prescription has been signed for disease case manager to obtain. 11/28: Patient underwent heart catheterization which came back normal coronary arteries. Patient has been cleared for discharge home and will follow-up with Dr. Orlando as an outpatient. Voltaren gel ordered for chest pain and melatonin added for home for insomnia. Patient will be discharged home today in stable condition. Discharge diagnoses: 1. Chest pain with costochondritis 2. Complete heart block status post dual-chamber permanent pacemaker on 11/05/18 3. Diabetes mellitus type 2. 4. Hypertension. 5. Hyperlipidemia. 6. Gastroesophageal reflux disease. Discharge plan: Home Impression and plan of care have been directed as dictated by the signing physician. Jami Ramires nurse practitioner acting as scribe for signing physician. Patient Condition at Discharge: Good Plan - Discharge Summary Discharge Rx Participant: Yes New Discharge Prescriptions: New Melatonin 5 mg PO HS #30 tablet Diclofenac Sodium [Voltaren Gel] 4 gram TOPICAL QID #100 gram Continue Simvastatin [Zocor] 20 mg PO HS Omeprazole [PriLOSEC] 20 mg PO DAILY Magnesium Oxide [Mag-Ox] 400 mg PO DAILY Fish Oil/Dha/Epa [Fish Oil 1,200 mg Fish Oil] 1 cap PO HS Calcium Carbonate [Calcium] 600 mg PO BID metFORMIN HCL ER [Glucophage Xr] 500 mg PO AC-SUPPER metFORMIN HCL ER [Glucophage Xr] 1,000 mg PO AC-BRKFST Lisinopril [Prinivil] 10 mg PO BID Metoprolol Tartrate [Lopressor] 25 mg PO BID #60 tab Psyllium Husk 100% [Metamucil Packet] 6 gm PO DAILY Mag Hydrox/Al Hydrox/Simeth [Maalox] 30 ml PO Q6H PRN PRN Reason: Gi Upset Fluticasone Nasal Altha [Flonase Nasal Altha] 2 spr EA NOSTRIL DAILY Cholecalciferol [Vitamin D3 (25 Mcg = 1000 Iu)] 2,000 unit PO DAILY Discharge Medication List Calcium Carbonate [Calcium] 600 mg PO BID 11/03/18 [History] Fish Oil/Dha/Epa [Fish Oil 1,200 mg Fish Oil] 1 cap PO HS 11/03/18 [History] Lisinopril [Prinivil] 10 mg PO BID 11/03/18 [History] Magnesium Oxide [Mag-Ox] 400 mg PO DAILY 11/03/18 [History] Omeprazole [PriLOSEC] 20 mg PO DAILY 11/03/18 [History] Simvastatin [Zocor] 20 mg PO HS 11/03/18 [History] metFORMIN HCL ER [Glucophage Xr] 1,000 mg PO AC-BRKFST 11/03/18 [History] metFORMIN HCL ER [Glucophage Xr] 500 mg PO AC-SUPPER 11/03/18 [History] Metoprolol Tartrate [Lopressor] 25 mg PO BID #60 tab 11/06/18 [Rx] Fluticasone Nasal Altha [Flonase Nasal Altha] 2 spr EA NOSTRIL DAILY 11/22/18 [History] Mag Hydrox/Al Hydrox/Simeth [Maalox] 30 ml PO Q6H PRN 11/22/18 [History] Psyllium Husk 100% [Metamucil Packet] 6 gm PO DAILY 11/22/18 [History] Cholecalciferol [Vitamin D3 (25 Mcg = 1000 Iu)] 2,000 unit PO DAILY 11/24/18 [History] Diclofenac Sodium [Voltaren Gel] 4 gram TOPICAL QID #100 gram 11/28/18 [Rx] Melatonin 5 mg PO HS #30 tablet 11/28/18 [Rx] Follow up Appointment(s)/Referral(s): Kj Aburto MD [Primary Care Provider] - 1 Week Kolby Amaya MD [STAFF PHYSICIAN] - 12/06/18 3:15 pm [facility] Visiting Nurse, [NON-STAFF] - 1-2 Days Patient Instructions/Handouts: Heart Catheterization (DC) Activity/Diet/Wound Care/Special Instructions: Hold metformin and resume on Monday Discharge Disposition: HOME WITH HOME HEALTH SERVICES
== END 2018-11-28 15:40 | disposition home health service (06) | DRG 287 ==
LOC: EC 15:01 → 1SOBS 16:40 → OBSVTOIN 11-26 14:39 → 1SOBS 11-27 20:08
PROVIDERS: ADMIT Family Medicine; ATTEND Family Medicine
PROC: 4A023N7 Measurement of Cardiac Sampling and Pressure, Left Heart, Percutaneous Approach (ICD-10-PCS; principal; 2018-11-26)
PROC: B2111ZZ Fluoroscopy of Multiple Coronary Arteries using Low Osmolar Contrast (ICD-10-PCS; 2018-11-26)
DX: R94.39 Abnormal result of other cardiovascular function study (principal); J98.11 Atelectasis; M94.0 Chondrocostal junction syndrome [Tietze]; I27.20 Pulmonary hypertension, unspecified; I08.1 Rheumatic disorders of both mitral and tricuspid valves; I11.9 Hypertensive heart disease without heart failure; E04.2 Nontoxic multinodular goiter; E11.9 Type 2 diabetes mellitus without complications; E78.5 Hyperlipidemia, unspecified; F41.9 Anxiety disorder, unspecified; I25.2 Old myocardial infarction; K21.9 Gastro-esophageal reflux disease without esophagitis; Z79.84 Long term (current) use of oral hypoglycemic drugs; Z79.899 Other long term (current) drug therapy; Z88.6 Allergy status to analgesic agent; Z90.49 Acquired absence of other specified parts of digestive tract; Z90.710 Acquired absence of both cervix and uterus; Z95.0 Presence of cardiac pacemaker; Z82.3 Family history of stroke; Z82.49 Family history of ischemic heart disease and other diseases of the circulatory system
CPT/HCPCS: 36415; 71046; 71275; 78452; 80053; 80061; 83036; 83735; 84484; 85025; 85610; 85730; 93005; 93017; 93458; 94760; 99285

== ENCOUNTER 2018-12-01 03:58 | Emergency (ER) | payer MEDICARE, OTHER ==
[2018-12-01 04:04] VITALS: TEMP 98.1
[2018-12-01] MEDS ORDERED: ACETAMINOPHEN TAB 325 MG TAB PO STA (04:32)
[2018-12-01 04:36] LABS: Basophils # (A) 0.1 k/uL (0-0.2); Basophils % (A) 1 %; Eosinophils # (A) 0.2 k/uL (0-0.7); Eosinophils % (A) 4 %; HCT 38.2 % (34.0-46.0); HGB 13.2 gm/dL (11.4-16.0); Lymphocytes # (A) 1.4 k/uL (1.0-4.8); Lymphocytes % (A) 22 %; MCH 28.3 pg (25.0-35.0); MCHC 34.6 g/dL (31.0-37.0); MCV 81.8 fL (80.0-100.0); Monocytes # (A) 0.3 k/uL (0-1.0); Monocytes % (A) 5 %; Neutrophils # (A) 4.3 k/uL (1.3-7.7); Neutrophils % (A) 68 %; Platelet Count 199 k/uL (150-450); RBC 4.67 m/uL (3.80-5.40); RDW 14.1 % (11.5-15.5); WBC 6.3 k/uL (3.8-10.6)
[2018-12-01 04:53] LABS: INR 0.9 (<1.2); Partial Thromboplastin Time 22.7 sec (22.0-30.0); Prothrombin Time 9.6 sec (9.0-12.0)
--- NOTE | 2018-12-01 04:53 | XR ---
EXAMINATION TYPE: XR chest 2V DATE OF EXAM: 12/01/2018 COMPARISON: 11/25/2018 HISTORY: Chest pain TECHNIQUE: Frontal and lateral views of the chest are obtained. FINDINGS: Heart and mediastinum are normal. Lungs are clear. Diaphragm is normal. Bony thorax is nor mal. There is a left axillary pacemaker. There are chest leads. IMPRESSION: No active cardiopulmonary disease. Normal heart. No change.
[2018-12-01 04:55] LABS: D-Dimer 0.85 mg/L FEU (<0.60)
[2018-12-01 05:04] LABS: ALT 91 U/L (9-52); AST 50 U/L (14-36); African American GFR (CKD) >90 (>60 ml/min/1.73 sqM); Albumin 4.3 g/dL (3.5-5.0); Alkaline Phosphatase 69 U/L (38-126); Anion Gap 11 mmol/L; Blood Urea Nitrogen 16 mg/dL (7-17); Carbon Dioxide 24 mmol/L (22-30); Chloride 103 mmol/L (98-107); Glucose 196 mg/dL (74-99); Magnesium 1.7 mg/dL (1.6-2.3); Potassium 4.5 mmol/L (3.5-5.1); Sodium 138 mmol/L (137-145); Total Bilirubin 0.4 mg/dL (0.2-1.3); Total Protein 7.6 g/dL (6.3-8.2)
--- NOTE | 2018-12-01 06:45 | CT ---
EXAMINATION TYPE: CT chest angio for PE DATE OF EXAM: 12/01/2018 COMPARISON: 11/25/2018 HISTORY: Pleurisy Elevated D-Dimer. chest pain. CT DLP: 437.8 mGycm Automated exposure control for dose reduction was used. CONTRAST: CT Chest for pulmonary embolism performed with with IV Contrast, patient injected with 70 mL of Isovu e 370. FINDINGS: There are 3-D post processed images. There is coarse interstitial density in the mid and lower lung ribera. Heart is enlarged. There is no pleural effusion. There is no evidence of a pulmonary mass. Thoracic aorta is atheromatous. There is no pericardial effusion. There is normal contrast opacification of the pulmonary arteries. I see no filling defect. There is n o mediastinal adenopathy. There are no hilar masses. Upper abdominal soft tissues are intact. The bon y thorax is intact. IMPRESSION: No evidence of pulmonary embolism. Mild interstitial infiltrates and subsegmental atelectasis in the lower lung ribera unchanged. Cardiomegaly. Enlarged thyroid gland consistent with multinodular goiter unchanged.
--- NOTE | 2018-12-01 08:04 | ED ---
Chest Pain HPI <TerryQamar - Last Filed: 12/01/18 09:46> - General Source: patient Mode of arrival: ambulatory Limitations: no limitations - History of Present Illness MD Complaint: chest pain -: hour(s) Onset: during rest Pain Location: substernal Pain Radiation: RUE Severity: moderate Quality: aching, sharp Consistency: constant Improves With: nothing Worsens With: movement Treatments Prior to Arrival: none <Sage Rodriguez - Last Filed: 12/02/18 07:03> - General Chief Complaint: Chest Pain Stated Complaint: Chest pain Time Seen by Provider: 12/01/18 04:11 - Related Data Home Medications Medication Instructions Recorded Confirmed Calcium Carbonate [Calcium] 600 mg PO BID 11/03/18 12/01/18 Fish Oil/Dha/Epa [Fish Oil 1,200 1 cap PO HS 11/03/18 12/01/18 mg Fish Oil] Lisinopril [Prinivil] 10 mg PO BID 11/03/18 12/01/18 Magnesium Oxide [Mag-Ox] 400 mg PO DAILY 11/03/18 12/01/18 Omeprazole [PriLOSEC] 20 mg PO DAILY 11/03/18 12/01/18 Simvastatin [Zocor] 20 mg PO HS 11/03/18 12/01/18 metFORMIN HCL ER [Glucophage Xr] 1,000 mg PO AC-BRKFST 11/03/18 12/01/18 metFORMIN HCL ER [Glucophage Xr] 500 mg PO AC-SUPPER 11/03/18 12/01/18 Fluticasone Nasal [place] [Flonase 2 spr EA NOSTRIL DAILY 11/22/18 12/01/18 Nasal [place]] Mag Hydrox/Al Hydrox/Simeth 30 ml PO Q6H PRN 11/22/18 12/01/18 [Maalox] Psyllium Husk 100% [Metamucil 6 gm PO DAILY 11/22/18 12/01/18 Packet] Cholecalciferol [Vitamin D3 (25 2,000 unit PO DAILY 11/24/18 12/01/18 Mcg = 1000 Iu)] Previous Rx's Medication Instructions Recorded Metoprolol Tartrate [Lopressor] 25 mg PO BID #60 tab 11/06/18 Diclofenac Sodium [Voltaren Gel] 4 gram TOPICAL QID #100 gram 11/28/18 Melatonin 5 mg PO HS #30 tablet 11/28/18 Isosorbide Mononitrate ER [Imdur] 15 mg PO DAILY #7 dose 12/01/18 Allergies Allergy/AdvReac Type Severity Reaction Status Date / Time aspirin AdvReac Abdominal Verified 12/02/18 03:17 Pain Review of Systems ROS Other: All systems not noted in ROS Statement are negative. <HarrisonQamar - Last Filed: 12/01/18 09:46> ROS Other: All systems not noted in ROS Statement are negative. Constitutional: Denies: fever, chills Respiratory: Denies: cough, dyspnea, hemoptysis Cardiovascular: Reports: chest pain. Denies: palpitations, dyspnea on exertion, orthopnea Gastrointestinal: Denies: abdominal pain, nausea, vomiting Genitourinary: Denies: dysuria, hematuria Musculoskeletal: Denies: back pain Skin: Denies: rash Neurological: Denies: headache <Sage Rodriguez - Last Filed: 12/02/18 07:03> ROS Statement: Those systems with pertinent positive or pertinent negative responses have been documented in the HPI. EKG Findings - EKG Comments: EKG Findings:: Twelve-lead ECG shows an atrial sensed ventricular paced rhythm. The rate is 64 bpm - EKG Results: EKG: interpreted by ERMD <Sage Rodriguez - Last Filed: 12/02/18 07:03> Past Medical History Past Medical History: Diabetes Mellitus, GERD/Reflux, Hyperlipidemia, Hypertension, Myocardial Infarction ([place]), Pneumonia Additional Past Medical History / Comment(s): Complete heart block Last Myocardial Infarction Date:: 10/2018 History of Any Multi-Drug Resistant Organisms: None Reported Past Surgical History: Cholecystectomy, Heart Catheterization, Hysterectomy, Pacemaker Past Anesthesia/Blood Transfusion Reactions: No Reported Reaction Type of Cardiac Device: Biventricular Pacemaker Device Placement Date:: 10/2018 Past Psychological History: Anxiety Smoking Status: Never smoker Past Alcohol Use History: None Reported Past Drug Use History: None Reported - Past Family History Father Additional Family Medical History / Comment(s): Father in his 80s from a stroke. Mother Additional Family Medical History / Comment(s): Mother is with history of hypertension. Brother(s) Additional Family Medical History / Comment(s): Patient has one brother history of [place] at age 60. Sister(s) Family Medical History: Cancer Additional Family Medical History / Comment(s): breast <Sage Rodriguez - Last Filed: 12/02/18 07:03> General Exam Limitations: no limitations General appearance: alert, in no apparent distress Head exam: Present: atraumatic, normocephalic Eye exam: Present: normal appearance. Absent: scleral icterus, conjunctival injection ENT exam: Present: normal oropharynx Neck exam: Present: normal inspection Respiratory exam: Present: normal lung sounds bilaterally, chest wall tenderness. Absent: respiratory distress, wheezes, rales, rhonchi, stridor Cardiovascular Exam: Present: regular rate, normal rhythm, normal heart sounds. Absent: systolic murmur, diastolic murmur, rubs, gallop GI/Abdominal exam: Present: soft. Absent: distended, tenderness, guarding, rebound, rigid, mass Extremities exam: Present: normal inspection, normal capillary refill. Absent: pedal edema, calf tenderness Back exam: Present: normal inspection. Absent: CVA tenderness (R), CVA tenderness (L) Neurological exam: Present: alert Skin exam: Present: warm, dry, intact, normal color. Absent: rash <Sage Rodriguez - Last Filed: 12/02/18 07:03> Course <Qamar Terry - Last Filed: 12/01/18 09:46> Vital Signs 12/01/18 12/01/18 12/01/18 04:02 04:30 05:00 Temperature 98.1 F Pulse Rate 65 64 60 Respiratory 16 Rate Blood Pressure 118/83 108/76 107/69 O2 Sat by Pulse 99 95 95 Oximetry 12/01/18 12/01/18 12/01/18 05:30 06:00 09:50 Temperature 98.1 F Pulse Rate 61 59 L 75 Respiratory 18 Rate Blood Pressure 116/59 128/79 136/81 O2 Sat by Pulse 95 95 98 Oximetry - Reevaluation(s) Reevaluation #1: 12/01/18 09:46 Computed tomography scan of the chest shows no evidence of pulmonary embolism. Mild interstitial infiltrates/atelectasis unchanged. Cardiac megaly. Enlarged thyroid. Patient reevaluated and resting comfortably in bed, symptom-free. Patient was endorsed to me by Dr. Wan pending second troponin for probable discharge. Case was discussed in detail with Dr. Singh, covering for Dr. Aburto, who does recommend discharge and follow-up. She also recommends adding Imdur 15 mg daily. Patient updated on results and plan. Patient states she does have an appointment Monday however is advised to try to follow-up earlier. Patient does have 2 negative troponins. Patient had recent stress tests and recent negative heart catheterization. Patient did have recent computed tomography scan, and repeat scan today. (Qamar Terry) Procedures - [facility] Protocol (Time Out) Nurse: Mariaelena Stratton <Sage Rodriguez - Last Filed: 12/02/18 07:03> Disposition Is patient prescribed a controlled substance at d/c from ED?: No <Qamar Terry - Last Filed: 12/01/18 09:46> <Sage Rodriguez - Last Filed: 12/02/18 07:03> Clinical Impression: Chest pain Disposition: HOME SELF-CARE Condition: Stable Instructions (If sedation given, give patient instructions): Chest Pain (ED) Additional Instructions: Please follow-up with primary care physician Monday. Please have primary care physician review CT results and results from today's visit. Return for increased pain, difficult to breathing, worsening or changing symptoms or other concerns. Your prescription has been sent to [facility] in [place]. Prescriptions: Isosorbide Mononitrate ER [Imdur] 15 mg PO DAILY #7 dose Referrals: Kj Aburto MD [Primary Care Provider] - 1-2 days
[2018-12-01 09:51] VITALS: BP 136/81; PULSE 75; RESP 18
== END 2018-12-01 10:06 | disposition home or self-care (01) ==
LOC: EC 03:58
DX: R07.89 Other chest pain (principal); M79.601 Pain in right arm; E11.9 Type 2 diabetes mellitus without complications; K21.9 Gastro-esophageal reflux disease without esophagitis; E78.5 Hyperlipidemia, unspecified; I10 Essential (primary) hypertension; I25.2 Old myocardial infarction; Z88.6 Allergy status to analgesic agent; Z79.51 Long term (current) use of inhaled steroids; Z79.84 Long term (current) use of oral hypoglycemic drugs; Z79.899 Other long term (current) drug therapy; Z86.79 Personal history of other diseases of the circulatory system; Z95.0 Presence of cardiac pacemaker; Z95.818 Presence of other cardiac implants and grafts; Z82.49 Family history of ischemic heart disease and other diseases of the circulatory system
CPT/HCPCS: 36415; 93005; 85379; 80053; 83735; 84484; 85025; 85610; 85730; 71046; 71275; 99285; Q9967

== ENCOUNTER 2018-12-02 03:10 | Observation (INO) | payer MEDICARE, OTHER ==
[2018-12-02] MEDS ORDERED: SODIUM CHLORIDE 0.9% 500 ML 500 ML IV STA (03:54)
[2018-12-02] MEDS ORDERED: ONDANSETRON 4 MG/2 ML VIAL IVP STA (03:54)
[2018-12-02 04:34] LABS: Appearance,Urine Clear (Clear); Basophils # (A) 0.1 k/uL (0-0.2); Basophils % (A) 2 %; Bilirubin,Urine Negative (Negative); Blood,Urine Negative (Negative); Color,Urine Yellow; Eosinophils # (A) 0.3 k/uL (0-0.7); Eosinophils % (A) 4 %; Glucose,Urine (UA) 3+ (Negative); HCT 39.9 % (34.0-46.0); HGB 13.1 gm/dL (11.4-16.0); Ketones,Urine Negative (Negative); Leukocyte Esterase,Urine Negative (Negative); Lymphocytes % (A) 14 %; MCH 27.4 pg (25.0-35.0); MCHC 32.9 g/dL (31.0-37.0); MCV 83.3 fL (80.0-100.0); Mean Platelet Volume 8.2; Monocytes # (A) 0.4 k/uL (0-1.0); Monocytes % (A) 5 %; Neutrophils # (A) 5.4 k/uL (1.3-7.7); Neutrophils % (A) 74 %; Nitrite,Urine Negative (Negative); PH, Urine 5.5 (5.0-8.0); Platelet Count 168 k/uL (150-450); Protein,Urine Negative (Negative); RBC 4.79 m/uL (3.80-5.40); RDW 14.3 % (11.5-15.5); Specific Gravity,Urine 1.015 (1.001-1.035); Urobilinogen,Urine <2.0 mg/dL (<2.0); WBC 7.3 k/uL (3.8-10.6)
[2018-12-02 04:43] LABS: ALT 71 U/L (9-52); AST 33 U/L (14-36); African American GFR (CKD) >90 (>60 ml/min/1.73 sqM); Albumin 4.4 g/dL (3.5-5.0); Alkaline Phosphatase 59 U/L (38-126); Amylase 55 U/L (30-110); Anion Gap 14 mmol/L; Blood Urea Nitrogen 12 mg/dL (7-17); Calcium 10.8 mg/dL (8.4-10.2); Carbon Dioxide 25 mmol/L (22-30); Chloride 97 mmol/L (98-107); Glucose 250 mg/dL (74-99); Potassium 4.7 mmol/L (3.5-5.1); Sodium 136 mmol/L (137-145); Total Bilirubin 0.4 mg/dL (0.2-1.3); Total Protein 7.8 g/dL (6.3-8.2)
--- NOTE | 2018-12-02 05:06 | CT ---
EXAMINATION TYPE: CT abdomen pelvis wo con DATE OF EXAM: 12/02/2018 COMPARISON: 11/16/2018 HISTORY: nausea CT DLP: 556.4 mGycm Automated exposure control for dose reduction was used. TECHNIQUE: Helical acquisition of images was performed from the lung bases through the pelvis. FINDINGS: There is mild subsegmental atelectasis at the lung bases. Liver and spleen appear normal. There are c lips from cholecystectomy. Bile ducts are not dilated. Stomach is intact. There is no evidence of plummer creatic mass. There is no adrenal mass. Kidneys show satisfactory contrast opacification. There is no hydronephrosi s. Ureters are not dilated. There is no retroperitoneal adenopathy. Bladder distends smoothly. There is no inguinal hernia. There is no free fluid in the pelvis. There is no mesenteric edema. There is no ascites or free air. There is no sign of a bowel obstructio n. There is no bulky small bowel in the left upper quadrant with some wall thickening. Lumbar spine a ppears intact. There is no compression fracture. Bony pelvis appears intact. There is no evidence of thickened appendix. IMPRESSION: THERE IS SUGGESTION OF SHORT LOOP OF SMALL BOWEL WITH SOME WALL THICKENING INVOLVING THE JEJUNUM THAT COULD RELATE TO MILD GASTROENTERITIS. THIS IS A CHANGE COMPARED TO OLD EXAM. THERE IS CLEARING OF TH E SMALL AMOUNT OF FREE FLUID IN THE PELVIS COMPARED TO LAST EXAM.
[2018-12-02] MEDS ORDERED: DICYCLOMINE 20 MG TAB PO STA (05:10)
[2018-12-02] MEDS ORDERED: SODIUM CHLORIDE 0.9% 1,000 ML IV ONE (05:55)
[2018-12-02] MEDS ORDERED: SODIUM CHLORIDE 0.9% 1,000 ML IV STA (06:57)
--- NOTE | 2018-12-02 07:01 | ED ---
Nausea/Vomiting/Diarrhea HPI - General Chief complaint: Nausea/Vomiting/Diarrhea Stated complaint: Headache/weakness Time Seen by Provider: 12/02/18 03:48 Source: patient, family Mode of arrival: wheelchair Limitations: no limitations - History of Present Illness Initial comments: This patient is 63-year-old woman who presents to be evaluated after she had developed increasing nausea over the course of tonight. The patient also has had a little bit of abdominal cramping. Patient had been seen here yesterday for substernal chest pain that radiated to her right shoulder. She states that that had subsequently resolved. MD complaint: nausea -: hour(s) Description of Vomiting: food contents Location: diffuse Severity: mild Quality: cramping Consistency: intermittent Improves with: none Worsens with: none Associated Symptoms: nausea/vomiting - Related Data Home Medications Medication Instructions Recorded Confirmed Calcium Carbonate [Calcium] 600 mg PO BID 11/03/18 12/01/18 Fish Oil/Dha/Epa [Fish Oil 1,200 1 cap PO HS 11/03/18 12/01/18 mg Fish Oil] Lisinopril [Prinivil] 10 mg PO BID 11/03/18 12/01/18 Magnesium Oxide [Mag-Ox] 400 mg PO DAILY 11/03/18 12/01/18 Omeprazole [PriLOSEC] 20 mg PO DAILY 11/03/18 12/01/18 Simvastatin [Zocor] 20 mg PO HS 11/03/18 12/01/18 metFORMIN HCL ER [Glucophage Xr] 1,000 mg PO AC-BRKFST 11/03/18 12/01/18 metFORMIN HCL ER [Glucophage Xr] 500 mg PO AC-SUPPER 11/03/18 12/01/18 Fluticasone Nasal [place] [Flonase 2 spr EA NOSTRIL DAILY 11/22/18 12/01/18 Nasal [place]] Mag Hydrox/Al Hydrox/Simeth 30 ml PO Q6H PRN 11/22/18 12/01/18 [Maalox] Psyllium [place] 100% [Metamucil 6 gm PO DAILY 11/22/18 12/01/18 Packet] Cholecalciferol [Vitamin D3 (25 2,000 unit PO DAILY 11/24/18 12/01/18 Mcg = 1000 Iu)] Previous Rx's Medication Instructions Recorded Metoprolol Tartrate [Lopressor] 25 mg PO BID #60 tab 11/06/18 Diclofenac Sodium [Voltaren Gel] 4 gram TOPICAL QID #100 gram 11/28/18 Melatonin 5 mg PO HS #30 tablet 11/28/18 Isosorbide Mononitrate ER [Imdur] 15 mg PO DAILY #7 dose 12/01/18 Allergies Allergy/AdvReac Type Severity Reaction Status Date / Time aspirin AdvReac Abdominal Verified 12/02/18 03:17 Pain Review of Systems ROS Statement: Those systems with pertinent positive or pertinent negative responses have been documented in the HPI. ROS Other: All systems not noted in ROS Statement are negative. Constitutional: Denies: fever, chills Respiratory: Denies: cough, dyspnea Cardiovascular: Denies: chest pain, palpitations Gastrointestinal: Reports: as per HPI, abdominal pain, nausea, constipation. Denies: vomiting, diarrhea, hematemesis, melena, hematochezia Genitourinary: Denies: dysuria, hematuria Musculoskeletal: Denies: back pain Skin: Denies: rash Neurological: Denies: headache, weakness, numbness Past Medical History Past Medical History: Diabetes Mellitus, GERD/Reflux, Hyperlipidemia, Hypertension, Myocardial Infarction ([place]), Pneumonia Additional Past Medical History / Comment(s): Complete heart block Last Myocardial Infarction Date:: 10/2018 History of Any Multi-Drug Resistant Organisms: None Reported Past Surgical History: Cholecystectomy, Heart Catheterization, Hysterectomy, Pacemaker Past Anesthesia/Blood Transfusion Reactions: No Reported Reaction Type of Cardiac Device: Biventricular Pacemaker Device Placement Date:: 10/2018 Past Psychological History: Anxiety Smoking Status: Never smoker Past Alcohol Use History: None Reported Past Drug Use History: None Reported - Past Family History Father Additional Family Medical History / Comment(s): Father in his 80s from a stroke. Mother Additional Family Medical History / Comment(s): Mother is with history of hypertension. Brother(s) Additional Family Medical History / Comment(s): Patient has one brother history of [place] at age 60. Sister(s) Family Medical History: Cancer Additional Family Medical History / Comment(s): breast General Exam Limitations: no limitations General appearance: alert, in no apparent distress Head exam: Present: atraumatic, normocephalic Eye exam: Present: normal appearance. Absent: scleral icterus, conjunctival injection ENT exam: Present: normal oropharynx Neck exam: Present: normal inspection Respiratory exam: Present: normal lung sounds bilaterally. Absent: respiratory distress, wheezes, rales, rhonchi, stridor Cardiovascular Exam: Present: regular rate, normal rhythm, normal heart sounds. Absent: systolic murmur, diastolic murmur, rubs, gallop GI/Abdominal exam: Present: soft, tenderness (There is mild diffuse tenderness without rebound or guarding), diminished bowel sounds. Absent: distended, guarding, rebound, rigid, mass, pulsatile mass, hernia Extremities exam: Present: normal inspection, normal capillary refill. Absent: pedal edema, calf tenderness Back exam: Present: normal inspection. Absent: CVA tenderness (R), CVA tenderness (L) Skin exam: Present: warm, dry, intact, normal color. Absent: rash Course Vital Signs 12/02/18 03:13 Temperature 97.6 F Pulse Rate 73 Respiratory 18 Rate Blood Pressure 106/70 O2 Sat by Pulse 100 Oximetry Medical Decision Making - Medical Decision Making Patient is 63-year-old woman with some diffuse abdominal discomfort found to have lactic acidosis 4.5. Computed tomography scan suggestive of gastroenteritis. She did have CT yesterday with contrast to rule out a pulmonary embolism, and there after discussion with her is question whether she had taken her metformin. Patient will have fluid hydration, admission for symptom control and surgery consultation. - Lab Data Result diagrams: 12/02/18 04:25 12/02/18 04:25 Lab Results 12/02/18 12/02/18 12/02/18 Range/Units 04:25 04:25 04:25 WBC 7.3 (3.8-10.6) k/uL RBC 4.79 (3.80-5.40) m/uL Hgb 13.1 (11.4-16.0) gm/dL Hct 39.9 (34.0-46.0) % MCV 83.3 (80.0-100.0) fL MCH 27.4 (25.0-35.0) pg MCHC 32.9 (31.0-37.0) g/dL RDW 14.3 (11.5-15.5) % Plt Count 168 (150-450) k/uL Neutrophils % 74 % Lymphocytes % 14 % Monocytes % 5 % Eosinophils % 4 % Basophils % 2 % Neutrophils # 5.4 (1.3-7.7) k/uL Lymphocytes # 1.0 (1.0-4.8) k/uL Monocytes # 0.4 (0-1.0) k/uL Eosinophils # 0.3 (0-0.7) k/uL Basophils # 0.1 (0-0.2) k/uL Sodium 136 L (137-145) mmol/L Potassium 4.7 (3.5-5.1) mmol/L Chloride 97 L (98-107) mmol/L Carbon Dioxide 25 (22-30) mmol/L Anion Gap 14 mmol/L BUN 12 (7-17) mg/dL Creatinine 0.65 (0.52-1.04) mg/dL Est GFR (CKD-EPI)AfAm >90 (>60 ml/min/1.73 sqM) Est GFR (CKD-EPI)NonAf >90 (>60 ml/min/1.73 sqM) Glucose 250 H (74-99) mg/dL Plasma Lactic Acid Isaac 4.7 H* (0.7-2.0) mmol/L Calcium 10.8 H (8.4-10.2) mg/dL Total Bilirubin 0.4 (0.2-1.3) mg/dL AST 33 (14-36) U/L ALT 71 H (9-52) U/L Alkaline Phosphatase 59 (38-126) U/L Troponin I (0.000-0.034) ng/mL Total Protein 7.8 (6.3-8.2) g/dL Albumin 4.4 (3.5-5.0) g/dL Amylase 55 (30-110) U/L Lipase 198 (23-300) U/L Urine Color Urine Appearance (Clear) Urine pH (5.0-8.0) Ur Specific [place] (1.001-1.035) Urine Protein (Negative) Urine Glucose (UA) (Negative) Urine Ketones (Negative) Urine Blood (Negative) Urine Nitrite (Negative) Urine Bilirubin (Negative) Urine Urobilinogen (<2.0) mg/dL Ur Leukocyte Esterase (Negative) 12/02/18 12/02/18 Range/Units 04:25 04:25 WBC (3.8-10.6) k/uL RBC (3.80-5.40) m/uL Hgb (11.4-16.0) gm/dL Hct (34.0-46.0) % MCV (80.0-100.0) fL MCH (25.0-35.0) pg MCHC (31.0-37.0) g/dL RDW (11.5-15.5) % Plt Count (150-450) k/uL Neutrophils % % Lymphocytes % % Monocytes % % Eosinophils % % Basophils % % Neutrophils # (1.3-7.7) k/uL Lymphocytes # (1.0-4.8) k/uL Monocytes # (0-1.0) k/uL Eosinophils # (0-0.7) k/uL Basophils # (0-0.2) k/uL Sodium (137-145) mmol/L Potassium (3.5-5.1) mmol/L Chloride (98-107) mmol/L Carbon Dioxide (22-30) mmol/L Anion Gap mmol/L BUN (7-17) mg/dL Creatinine (0.52-1.04) mg/dL Est GFR (CKD-EPI)AfAm (>60 ml/min/1.73 sqM) Est GFR (CKD-EPI)NonAf (>60 ml/min/1.73 sqM) Glucose (74-99) mg/dL Plasma Lactic Acid Isaac (0.7-2.0) mmol/L Calcium (8.4-10.2) mg/dL Total Bilirubin (0.2-1.3) mg/dL AST (14-36) U/L ALT (9-52) U/L Alkaline Phosphatase (38-126) U/L Troponin I <0.012 (0.000-0.034) ng/mL Total Protein (6.3-8.2) g/dL Albumin (3.5-5.0) g/dL Amylase (30-110) U/L Lipase (23-300) U/L Urine Color Yellow Urine Appearance Clear (Clear) Urine pH 5.5 (5.0-8.0) Ur Specific [place] 1.015 (1.001-1.035) Urine Protein Negative (Negative) Urine Glucose (UA) 3+ H (Negative) Urine Ketones Negative (Negative) Urine Blood Negative (Negative) Urine Nitrite Negative (Negative) Urine Bilirubin Negative (Negative) Urine Urobilinogen <2.0 (<2.0) mg/dL Ur Leukocyte Esterase Negative (Negative) Disposition Clinical Impression: Abdominal cramping, Gastroenteritis, Acidosis Disposition: ADMITTED IP TO THIS HOSP Condition: Fair Is patient prescribed a controlled substance at d/c from ED?: No Referrals: Kj Aburto MD [Primary Care Provider] - 1-2 days
[2018-12-02] MEDS ORDERED: NALOXONE 0.4 MG/ML 1 ML VIAL IV PRN (07:34)
[2018-12-02] MEDS ORDERED: ONDANSETRON 4 MG/2 ML VIAL IVP PRN (07:34)
[2018-12-02] MEDS ORDERED: MORPHINE SULFATE 4 MG/ML SYRINGE IV PRN (07:34)
[2018-12-02] MEDS ORDERED: MAG HYDROX/AL HYDROX/SIMETH 30 ML CUP PO PRN (07:37)
[2018-12-02] MEDS: SODIUM CHLORIDE 0.9% 1,000 ML IV SCH ×2 (08:02→21:26)
[2018-12-02 09:11] VITALS: BMI 27.3
--- NOTE | 2018-12-02 11:30 | P.GSCN ---
History of Present Illness Consult date: 12/02/18 History of present illness: CHIEF COMPLAINT: Abdominal pain HISTORY OF PRESENT ILLNESS: The patient is a 63-year-old female with diabetes type 2 who reports eating 9 hours ago between 2 AM to 3 AM this morning. She presented to the emergency room initially was discharged and came back with elevated lactate levels. She reports crampy abdominal pain which started 2 days ago. She reports occasional gas cramps. She is having bowel movements this morning and is passing flatus. "I am hungry.". No moderate abdominal pain at this time. No fevers or chills. No blood in stools. She has history of chronic constipation. Surgery is consulted for abdominal pain with lactic acidosis. PAST MEDICAL HISTORY: See list. PAST SURGICAL HISTORY: See list. MEDICATIONS: See list. ALLERGIES: See list. SOCIAL HISTORY: See list. FAMILY HISTORY: See list. REVIEW OF ORGAN SYSTEMS: CONSTITUTIONAL: No fevers or chills. No recent weight loss. EYES: Denies any trouble with vision. No glasses. HEENT: No difficulties with hearing. No nosebleeds. No difficulty swallowing. RESPIRATORY: Denies pneumonia. Denies any troubles with breathing or dyspnea on exertion. CARDIOVASCULAR: Past history of myocardial infarction with ischemic cardiomyopathy. Has hypertension. History of pacemaker GASTROINTESTINAL: Has chronic constipation GENITOURINARY: Denies any blood in urine or increased urinary frequency. NEUROLOGICAL: Denies any numbness or tingling along the distal extremities. No seizure disorders or headaches. MUSCULOSKELETAL: Has back pain, stiffness or joint arthritis. SKIN: No current skin cancer. No rash. PSYCHIATRIC: Denies current depression or suicidal thoughts. Has anxiety. ENDOCRINE: Denies current thyroid disorders. Has blood sugar glucose intolerance. HEME/LYMPHATIC: Denies any lumps and bumps around the neck. No recent deep venous thrombosis. ALLERGY/IMMUNOLOGY: No immunoglobulin therapy. No immune deficiencies. BREAST: Denies current breast lumps, pain or nipple discharge. PHYSICAL EXAM: VITALS: Reviewed CONSTITUTIONAL: Well developed and in no acute distress. EYES: Conjuctivae without sclera icterus. Pupils are equally round and reactive to light. Extraocular movements grossly intact. HEAD, EARS, NOSE, THROAT: Moist buccal mucosa. Head is atraumatic, normocephalic. Hears conversational speech. No nasal drainage. Edentulous NECK: Supple. No JV distention. No thyroidomegaly. RESPIRATORY: Non-labored respirations and equal bilateral excursions. No gross wheezes. CARDIOVASCULAR: Regular rate and rhythm. Extremities without moderate edema. Palpable 2+ radial pulses. ABDOMEN: Soft. Nondistended. No peritonitis. Minimal generalized tenderness LYMPH: No neck lymphadenopathy. No axillary lymphadenopathy. MUSCULOSKELETAL: Nail and fingers with good capillary refill. SKIN: Warm and well perfused with good skin turgor. NEUROLOGIC: Cranial nerves I through XII grossly intact. Sensation upper and extremities intact. No focal or lateralizing signs. PSYCH: Appropriate affect. Alert and oriented to person, place and time. Displays appropriate insight. CLINCAL LABS: Reviewed. WBC count normal 7400. Lactic acid level elevated 4.7 now normal 1.4 RADIOLOGY: Report reviewed demonstrating gastroenteritis IMAGING: Independently reviewed CT reviewed by me without free air or small bowel obstruction RECORDS: previous old records reviewed ASSESSMENT: 1. Gastroenterititis 2. Lactic acidosis PLAN: 1. May start diet, full liquid started. 2. IVF hydration for lactic acidosis 3. No surgical intervention 4. Agreeable with discharge when medically stable Thank you for this kind consultation. Past Medical History Past Medical History: Diabetes Mellitus, GERD/Reflux, Hyperlipidemia, Hypertension, Myocardial Infarction ([place]), Pneumonia Additional Past Medical History / Comment(s): Complete heart block Last Myocardial Infarction Date:: 10/2018 History of Any Multi-Drug Resistant Organisms: None Reported Past Surgical History: Cholecystectomy, Heart Catheterization, Hysterectomy, Pacemaker Past Anesthesia/Blood Transfusion Reactions: No Reported Reaction Type of Cardiac Device: Biventricular Pacemaker Device Placement Date:: 10/2018 Past Psychological History: Anxiety Smoking Status: Never smoker Past Alcohol Use History: None Reported Additional Past Alcohol Use History / Comment(s): Patient is a lifelong nonsmoker. No illicit drug use, no alcohol use. Past Drug Use History: None Reported - Past Family History Father Additional Family Medical History / Comment(s): Father in his 80s from a stroke. Mother Additional Family Medical History / Comment(s): Mother is with history of hypertension. Brother(s) Additional Family Medical History / Comment(s): Patient has one brother history of [place] at age 60. Sister(s) Family Medical History: Cancer Additional Family Medical History / Comment(s): breast Medications and Allergies Home Medications Medication Instructions Recorded Confirmed Type Calcium Carbonate [Calcium] 600 mg PO BID 11/03/18 12/02/18 History Fish Oil/Dha/Epa [Fish Oil 1,200 1 cap PO HS 11/03/18 12/02/18 History mg Fish Oil] Lisinopril [Prinivil] 10 mg PO BID 11/03/18 12/02/18 History Magnesium Oxide [Mag-Ox] 400 mg PO DAILY 11/03/18 12/02/18 History Omeprazole [PriLOSEC] 20 mg PO DAILY 11/03/18 12/02/18 History Simvastatin [Zocor] 20 mg PO HS 11/03/18 12/02/18 History metFORMIN HCL ER [Glucophage Xr] 1,000 mg PO AC-BRKFST 11/03/18 12/02/18 History metFORMIN HCL ER [Glucophage Xr] 500 mg PO AC-SUPPER 11/03/18 12/02/18 History Metoprolol Tartrate [Lopressor] 25 mg PO BID #60 tab 11/06/18 12/02/18 Rx Fluticasone Nasal [place] [Flonase 2 spr EA NOSTRIL DAILY 11/22/18 12/02/18 History Nasal [place]] Mag Hydrox/Al Hydrox/Simeth 30 ml PO Q6H PRN 11/22/18 12/02/18 History [Maalox] Psyllium Husk 100% [Metamucil 6 gm PO DAILY 11/22/18 12/02/18 History Packet] Cholecalciferol [Vitamin D3 (25 2,000 unit PO DAILY 11/24/18 12/02/18 History Mcg = 1000 Iu)] Diclofenac Sodium [Voltaren Gel] 4 gram TOPICAL QID #100 gram 11/28/18 12/02/18 Rx Melatonin 5 mg PO HS #30 tablet 11/28/18 12/02/18 Rx Isosorbide Mononitrate ER [Imdur] 15 mg PO DAILY #7 dose 12/01/18 12/02/18 Rx Allergies Allergy/AdvReac Type Severity Reaction Status Date / Time aspirin AdvReac Abdominal Verified 12/02/18 08:15 Pain Surgical - Exam Vital Signs Temp Pulse Resp BP Pulse Ox 97.6 F 73 18 106/70 100 12/02/18 03:13 12/02/18 03:13 12/02/18 03:13 12/02/18 03:13 12/02/18 03:13 Results - Labs 12/02/18 04:25 12/02/18 04:25 Abnormal Lab Results - Last 24 Hours (Table) 12/02/18 12/02/18 12/02/18 Range/Units 04:25 04:25 04:25 Sodium 136 L (137-145) mmol/L Chloride 97 L (98-107) mmol/L Glucose 250 H (74-99) mg/dL Plasma Lactic Acid Isaac 4.7 H* (0.7-2.0) mmol/L Calcium 10.8 H (8.4-10.2) mg/dL ALT 71 H (9-52) U/L Urine Glucose (UA) 3+ H (Negative) Diabetes panel 12/02/18 Range/Units 04:25 Sodium 136 L (137-145) mmol/L Potassium 4.7 (3.5-5.1) mmol/L Chloride 97 L (98-107) mmol/L Carbon Dioxide 25 (22-30) mmol/L BUN 12 (7-17) mg/dL Creatinine 0.65 (0.52-1.04) mg/dL Glucose 250 H (74-99) mg/dL Calcium 10.8 H (8.4-10.2) mg/dL AST 33 (14-36) U/L ALT 71 H (9-52) U/L Alkaline Phosphatase 59 (38-126) U/L Total Protein 7.8 (6.3-8.2) g/dL Albumin 4.4 (3.5-5.0) g/dL Calcium panel 12/02/18 Range/Units 04:25 Calcium 10.8 H (8.4-10.2) mg/dL Albumin 4.4 (3.5-5.0) g/dL Pituitary panel 12/02/18 Range/Units 04:25 Sodium 136 L (137-145) mmol/L Potassium 4.7 (3.5-5.1) mmol/L Chloride 97 L (98-107) mmol/L Carbon Dioxide 25 (22-30) mmol/L BUN 12 (7-17) mg/dL Creatinine 0.65 (0.52-1.04) mg/dL Glucose 250 H (74-99) mg/dL Calcium 10.8 H (8.4-10.2) mg/dL Adrenal panel 12/02/18 Range/Units 04:25 Sodium 136 L (137-145) mmol/L Potassium 4.7 (3.5-5.1) mmol/L Chloride 97 L (98-107) mmol/L Carbon Dioxide 25 (22-30) mmol/L BUN 12 (7-17) mg/dL Creatinine 0.65 (0.52-1.04) mg/dL Glucose 250 H (74-99) mg/dL Calcium 10.8 H (8.4-10.2) mg/dL Total Bilirubin 0.4 (0.2-1.3) mg/dL AST 33 (14-36) U/L ALT 71 H (9-52) U/L Alkaline Phosphatase 59 (38-126) U/L Total Protein 7.8 (6.3-8.2) g/dL Albumin 4.4 (3.5-5.0) g/dL Assessment and Plan (1) Lactic acidosis Current Visit: Yes Status: Acute Code(s): E87.2 - ACIDOSIS SNOMED Code(s): 74016032 (2) Pacemaker Current Visit: Yes Status: Acute Code(s): Z95.0 - PRESENCE OF CARDIAC PACEMAKER SNOMED Code(s): 799393620 (3) Diabetes type 2, uncontrolled Current Visit: Yes Status: Acute Code(s): E11.65 - TYPE 2 DIABETES MELLITUS WITH HYPERGLYCEMIA SNOMED Code(s): 112509080 (4) Hypertensive heart disease Current Visit: Yes Status: Acute Code(s): I11.9 - HYPERTENSIVE HEART DISEASE WITHOUT HEART FAILURE SNOMED Code(s): 23892175 (5) Ischemic cardiomyopathy Current Visit: Yes Status: Acute Code(s): I25.5 - ISCHEMIC CARDIOMYOPATHY SNOMED Code(s): 537566903 (6) Gastroenteritis Current Visit: Yes Status: Acute Code(s): K52.9 - NONINFECTIVE GASTROENTERITIS AND COLITIS, UNSPECIFIED SNOMED Code(s): 67392939
[2018-12-02] MEDS: CHOLECALCIFEROL 1,000 UNIT TAB PO SCH (12:00)
[2018-12-02] MEDS: MAGNESIUM OXIDE 400 MG TAB PO SCH (12:00)
[2018-12-02] MEDS: CALCIUM CARBONATE 500 MG CHEWABLE PO SCH ×2 (12:00→21:22)
[2018-12-02] MEDS: LISINOPRIL 10 MG TAB PO SCH ×2 (12:00→21:22)
[2018-12-02] MEDS: FLUTICASONE 50MCG/SPRAY NASAL 16GM EA NOSTRIL SCH (12:00)
[2018-12-02] MEDS: ISOSORBIDE MONONITRATE ER 15 MG TAB PO SCH (12:00)
[2018-12-02] MEDS: METOPROLOL TARTRATE 25 MG TAB PO SCH ×2 (12:01→21:21)
[2018-12-02] MEDS: PANTOPRAZOLE 40 MG TABLET PO SCH (12:03)
--- NOTE | 2018-12-02 15:37 | P.HPIM ---
History of Present Illness H&P Date: 12/02/18 63 years old female patient of Dr. Hernandez and Dr. Orlando with past medical history of type 2 diabetes, hypertension hyperlipidemia and GERD who was recently admitted on 11/04 and was found to have complete heart block for which pacemaker was placed on 11/05. Patient has been seen in ER multiple times since then including 11/16 for fever and nausea, 11/22 for chest pain 11/24 for abdominal pain, 11/26 with chest pain radiating to left arm and had heart cath done on 11/28 which was normal coronary arteries. Patient comes in today with nausea vomiting and diarrhea. Computed tomography scan was followed that suggestive gastroenteritis. Vital signs were stable with no episode of fever and pulse 73 blood pressure 106/7000% on room air. Initial blood work suggested a glucose of 196 the lactic acid of 4.7 calcium 10.8 point 3 negative blood sugar of 250. Vision initiated on IV levofloxacin and Flagyl lactic acid is improved to 1.4 with IV fluids. Patient has been seen by surgery and in bowel obstruction and perforation is ruled out. Review of Systems Constitutional: Denies chills, Denies fever, Denies lethargy, Denies malaise, Denies poor appetite, Denies weakness, Denies weight loss Eyes: denies decreased vision, denies diplopia, denies discharge, denies pain Ears: deny: decreased hearing Ears, nose, mouth and throat: Denies dental pain, Denies headache, Denies nasal discharge, Denies nose pain Cardiovascular: Denies chest pain, Denies decreased exercise tolerance, Denies edema, Denies high blood pressure, Denies irregular heart beat, Denies palpi tations, Denies paroxysmal nocturnal dyspnea, Denies rapid heart beat, Denies shortness of breath Respiratory: Denies congestion, Denies cough, Denies cough with sputum, Denies dyspnea, Denies home oxygen, Denies wheezing Gastrointestinal: Endorses abdominal pain, endorses change in bowel habits, Denies coffee ground emesis, Denies early satiety, Denies excessive gas, Denies heartburn, Denies hematemesis, Denies hematochezia, Denies loss of appetite, endorses nausea, endorses vomiting Genitourinary: Denies dysuria, Denies flank pain, Denies kidney stones, Denies menorrhagia, Denies urgency, Denies urinary frequency Musculoskeletal: Denies gait dysfunction, Denies limitation of motion, Denies morning stiffness, Denies muscle cramps Integumentary: Denies rash, Denies wounds, Denies brittle nails, Denies change in hair/nails, Denies darkening of skin Neurological: Denies balance difficulties, Denies change in speech, Denies double vision, Denies gait dysfunction, Denies loss of vision, Denies motor disturbance, Denies numbness, Denies paralysis, Denies paresthesias, Denies seizures Psychiatric: Denies anxiety, Denies depression Endocrine: Denies excessive sweating, Denies excessive thirst, endorses high blood sugars, Denies palpitations Hematologic/Lymphatic: Denies easy bruising, Denies lymphadenopathy Past Medical History Past Medical History: Diabetes Mellitus, GERD/Reflux, Hyperlipidemia, Hypertension, Pneumonia Additional Past Medical History / Comment(s): Complete heart block Last Myocardial Infarction Date:: 10/2018 History of Any Multi-Drug Resistant Organisms: None Reported Past Surgical History: Cholecystectomy, Heart Catheterization, Hysterectomy, Pacemaker Past Anesthesia/Blood Transfusion Reactions: No Reported Reaction Type of Cardiac Device: Biventricular Pacemaker Device Placement Date:: 10/2018 Past Psychological History: Anxiety Smoking Status: Never smoker Past Alcohol Use History: None Reported Additional Past Alcohol Use History / Comment(s): Patient is a lifelong nonsmoker. No illicit drug use, no alcohol use. Past Drug Use History: None Reported - Past Family History Father Additional Family Medical History / Comment(s): Father in his 80s from a stroke. Mother Additional Family Medical History / Comment(s): Mother is with history of hypertension. Brother(s) Additional Family Medical History / Comment(s): Patient has one brother history of [place] at age 60. Sister(s) Family Medical History: Cancer Additional Family Medical History / Comment(s): breast Medications and Allergies Home Medications Medication Instructions Recorded Confirmed Type Calcium Carbonate [Calcium] 600 mg PO BID 11/03/18 12/02/18 History Fish Oil/Dha/Epa [Fish Oil 1,200 1 cap PO HS 11/03/18 12/02/18 History mg Fish Oil] Lisinopril [Prinivil] 10 mg PO BID 11/03/18 12/02/18 History Magnesium Oxide [Mag-Ox] 400 mg PO DAILY 11/03/18 12/02/18 History Omeprazole [PriLOSEC] 20 mg PO DAILY 11/03/18 12/02/18 History Simvastatin [Zocor] 20 mg PO HS 11/03/18 12/02/18 History metFORMIN HCL ER [Glucophage Xr] 1,000 mg PO AC-BRKFST 11/03/18 12/02/18 History metFORMIN HCL ER [Glucophage Xr] 500 mg PO AC-SUPPER 11/03/18 12/02/18 History Metoprolol Tartrate [Lopressor] 25 mg PO BID #60 tab 11/06/18 12/02/18 Rx Fluticasone Nasal [place] [Flonase 2 spr EA NOSTRIL DAILY 11/22/18 12/02/18 History Nasal [place]] Mag Hydrox/Al Hydrox/Simeth 30 ml PO Q6H PRN 11/22/18 12/02/18 History [Maalox] Psyllium [place] 100% [Metamucil 6 gm PO DAILY 11/22/18 12/02/18 History Packet] Cholecalciferol [Vitamin D3 (25 2,000 unit PO DAILY 11/24/18 12/02/18 History Mcg = 1000 Iu)] Diclofenac Sodium [Voltaren Gel] 4 gram TOPICAL QID #100 gram 11/28/18 12/02/18 Rx Melatonin 5 mg PO HS #30 tablet 11/28/18 12/02/18 Rx Isosorbide Mononitrate ER [Imdur] 15 mg PO DAILY #7 dose 12/01/18 12/02/18 Rx Allergies Allergy/AdvReac Type Severity Reaction Status Date / Time aspirin AdvReac Abdominal Verified 12/02/18 08:15 Pain Physical Exam Vitals: Vital Signs Temp Pulse Pulse Resp BP BP Pulse Ox 12/02/18 11:51 97.6 F 85 16 141/93 99 12/02/18 10:16 80 18 12/02/18 09:04 97.6 F 80 18 115/68 98 12/02/18 08:07 77 18 115/63 100 12/02/18 03:13 97.6 F 73 18 106/70 100 Intake and Output 12/02/18 12/02/18 12/02/18 06:59 14:59 22:59 Intake Total 360 Balance 360 Intake: Oral 360 Other: # Voids 3 Weight 65.771 kg - Constitutional General appearance: cooperative, no acute distress, obese - EENT Eyes: anicteric sclerae, PERRLA, normal appearance ENT: hearing grossly normal - Neck Neck: no lymphadenopathy, normal ROM, no other, no rigidity, no stridor, no thyromegaly - Respiratory Respiratory: bilateral: CTA, negative: diminished, dullness, rales, rhonchi - Cardiovascular Rhythm: regular Heart sounds: normal: S1, S2 Abnormal Heart Sounds: no systolic murmur, no diastolic murmur, no rub, no S3 Gallop, no S4 Gallop, no click, no other - Gastrointestinal General gastrointestinal: normal bowel sounds, soft distended diffusely most prominent in the right lower quadrant and left upper quadrant area - Integumentary Integumentary: no rash - Neurologic Neurologic: CNII-XII intact - Musculoskeletal Musculoskeletal: gait normal, strength equal bilaterally - Psychiatric Psychiatric: A&O x's 3, appropriate affect Results CBC & Chem 7: 12/02/18 04:25 12/02/18 04:25 Labs: Abnormal Lab Results - Last 24 Hours (Table) 12/02/18 12/02/18 12/02/18 Range/Units 04:25 04:25 04:25 Sodium 136 L (137-145) mmol/L Chloride 97 L (98-107) mmol/L Glucose 250 H (74-99) mg/dL Plasma Lactic Acid Isaac 4.7 H* (0.7-2.0) mmol/L Calcium 10.8 H (8.4-10.2) mg/dL ALT 71 H (9-52) U/L Urine Glucose (UA) 3+ H (Negative) Thrombosis Risk Factor Assmnt - DVT/VTE Prophylaxis DVT/VTE Prophylaxis: Pharmacologic Prophylaxis ordered - Choose All That Apply Each Risk Factor Represents 2 Points: Age 61-74 years Thrombosis Risk Factor Assessment Total Risk Factor Score: 2 Thrombosis Risk Factor Assessment Level: Low Risk Assessment and Plan Plan: 1. Abdominal pain secondary to gastroenteritis continue levofloxacin and Flagyl continue IV fluids at 75 mL per hour 2. Complete heart block status post dual-chamber permanent pacemaker on 11/05/18 Echocardiogram shows EF of 50-55%, mild septal wall hypokinesia, left pericardial effusion, no aortic stenosis, mild TR and mild VT, no pulmonary hypertension borderline, RVSP of 33 3 Diabetes mellitus type 2. Hold Metformin Continue NovoLog scale before meals and at bedtime. 4 lactic acidosis likely secondary to hyperglycemia and dehydration resolved with IV fluids 5 Hypertension. Continue lisinopril 10 mg twice daily. Coreg 25 mg twice a day 6 Hyperlipidemia. Continue atorvastatin 20 mg at bedtime. 7 Gastroesophageal reflux disease. Continue omeprazole 20 mg daily. 8 DVT prophylaxis. Heparin subcu. Disposition likely discharge tomorrow
[2018-12-02] MEDS ORDERED: LEVOFLOXACIN 250MG-D5W PMX 250 MG in DEXTROSE/WATER 1 50ML.BAG IVPB SCH (16:00)
[2018-12-02] MEDS: metroNIDAZOLE-NS PMX 500 MG in SALINE 1 100ML.BAG IVPB SCH (16:06)
[2018-12-02 16:56] LABS: Glucose,Whole Blood 153 mg/dL (75-99)
[2018-12-02] MEDS: INSULIN ASPART (NovoLOG) 100 UNIT/ML VIAL SQ SCH ×2 (18:20→21:22)
[2018-12-02] MEDS: ACETAMINOPHEN TAB 325 MG TAB PO PRN (19:33)
[2018-12-02 20:04] LABS: Glucose,Whole Blood 112 mg/dL (75-99)
[2018-12-02] MEDS ORDERED: MELATONIN 5 MG TABLET PO SCH (21:00)
[2018-12-02] MEDS ORDERED: ATORVASTATIN 10 MG TAB PO SCH (21:00)
[2018-12-02] MEDS: HEPARIN SODIUM,PORCINE 5,000 UNIT/ML 1 ML VIAL SQ SCH (21:21)
[2018-12-03] MEDS: metroNIDAZOLE-NS PMX 500 MG in SALINE 1 100ML.BAG IVPB SCH ×2 (00:31→07:32)
[2018-12-03] MEDS: SODIUM CHLORIDE 0.9% 1,000 ML IV SCH ×2 (04:04→09:54)
[2018-12-03 06:57] LABS: Glucose,Whole Blood 160 mg/dL (75-99)
[2018-12-03 07:08] LABS: Basophils % (A) 1 %; Eosinophils # (A) 0.1 k/uL (0-0.7); Eosinophils % (A) 4 %; HCT 33.9 % (34.0-46.0); HGB 11.5 gm/dL (11.4-16.0); Hypochromasia Slight; Lymphocytes # (A) 0.8 k/uL (1.0-4.8); Lymphocytes % (A) 23 %; MCHC 33.8 g/dL (31.0-37.0); MCV 82.8 fL (80.0-100.0); Mean Platelet Volume 7.4; Monocytes # (A) 0.3 k/uL (0-1.0); Monocytes % (A) 8 %; Neutrophils # (A) 2.2 k/uL (1.3-7.7); Neutrophils % (A) 63 %; Platelet Count 146 k/uL (150-450); RBC 4.09 m/uL (3.80-5.40); WBC 3.5 k/uL (3.8-10.6)
[2018-12-03 07:22] LABS: ALT 50 U/L (9-52); AST 20 U/L (14-36); African American GFR (CKD) >90 (>60 ml/min/1.73 sqM); Albumin 3.6 g/dL (3.5-5.0); Alkaline Phosphatase 56 U/L (38-126); Anion Gap 6 mmol/L; Blood Urea Nitrogen 9 mg/dL (7-17); Calcium 9.6 mg/dL (8.4-10.2); Carbon Dioxide 29 mmol/L (22-30); Chloride 104 mmol/L (98-107); Glucose 152 mg/dL (74-99); Potassium 5.1 mmol/L (3.5-5.1); Sodium 139 mmol/L (137-145); Total Bilirubin 0.4 mg/dL (0.2-1.3); Total Protein 6.5 g/dL (6.3-8.2)
[2018-12-03] MEDS: ISOSORBIDE MONONITRATE ER 15 MG TAB PO SCH (07:32)
[2018-12-03] MEDS: FLUTICASONE 50MCG/SPRAY NASAL 16GM EA NOSTRIL SCH (07:32)
[2018-12-03] MEDS: CHOLECALCIFEROL 1,000 UNIT TAB PO SCH (07:33)
[2018-12-03] MEDS: PANTOPRAZOLE 40 MG TABLET PO SCH (07:33)
[2018-12-03] MEDS: HEPARIN SODIUM,PORCINE 5,000 UNIT/ML 1 ML VIAL SQ SCH (07:33)
[2018-12-03] MEDS: LISINOPRIL 10 MG TAB PO SCH (07:33)
[2018-12-03] MEDS: MAGNESIUM OXIDE 400 MG TAB PO SCH (07:33)
[2018-12-03] MEDS: CALCIUM CARBONATE 500 MG CHEWABLE PO SCH (07:33)
[2018-12-03] MEDS: METOPROLOL TARTRATE 25 MG TAB PO SCH (07:33)
[2018-12-03] MEDS: INSULIN ASPART (NovoLOG) 100 UNIT/ML VIAL SQ SCH ×2 (07:34→11:54)
[2018-12-03 10:05] LABS: Hemoglobin A1C 6.7 % (4.0-6.0)
[2018-12-03 11:30] LABS: Glucose,Whole Blood 121 mg/dL (75-99)
--- NOTE | 2018-12-03 11:37 | P.PN ---
Subjective Progress Note Date: 12/03/18 CHIEF COMPLAINT: Abdominal pain HISTORY OF PRESENT ILLNESS: Patient examined this morning at the bedside. She denies abdominal pain. Denies nausea or vomiting. Tolerating diet. Reports passing flatus and having a bowel movement this morning. PHYSICAL EXAM: VITAL SIGNS: Reviewed GENERAL: Well-developed in no acute distress. HEENT: No sclera icterus. Extraocular movements grossly intact. Moist buccal mucosa. Head is atraumatic, normocephalic. Hears conversational speech. No nasal drainage. NECK: Supple without lymphadenopathy. CHEST: Non-labored respirations and equal bilateral excursions. CARDIOVASCULAR: Regular rate with regular rhythm. Palpable 2+ radial pulses. ABDOMEN: Soft. Nondistended. Nontender. Positive bowel sounds MUSCULOSKELETAL: No clubbing or cyanosis. NEUROLOGIC: No focal or lateralizing signs. Cranial nerves II through XII grossly intact. PSYCH: Appropriate affect. Alert and oriented to person, place and time. SKIN: Well perfused. Good skin turgor. ASSESSMENT: 1. Gastroenteritis 2. Lactic acidosis PLAN: 1. Advance diet as tolerated 2. No surgical intervention recommended 3. Discharge per medicine. We will sign off. Please re-consult if needed Nurse practitioner note has been reviewed by physician. Signing provider agrees with the documented findings, assessment, and plan of care. Objective - Vital Signs Vital signs: Vital Signs Temp 98.4 F 12/03/18 04:53 Pulse 83 12/03/18 04:53 Resp 16 12/03/18 04:53 BP 132/79 12/03/18 04:53 Pulse Ox 98 12/03/18 04:53 Intake & Output 12/02/18 12/03/18 12/03/18 18:59 06:59 18:59 Intake Total 360 1430 Balance 360 1430 Intake: Intake, IV Titration 250 Amount cefTRIAXone 1 gm In 150 Sodium Chloride 0.9% 50 ml @ 100 mls/hr IVPB ONCE STA Rx#:[id number]-NS PMX 500 100 mg In Saline 1 100ml.bag @ 100 mls/hr IVPB Q8HR LEISA Rx#:[id number] Oral 360 1180 Other: Voiding Method Toilet # Voids 3 3 - Labs CBC & Chem 7: 12/03/18 06:44 12/03/18 06:44 Labs: Abnormal Lab Results - Last 24 Hours (Table) 12/02/18 12/02/18 12/02/18 Range/Units 04:25 16:55 20:03 WBC (3.8-10.6) k/uL Hct (34.0-46.0) % Plt Count (150-450) k/uL Lymphocytes # (1.0-4.8) k/uL Glucose (74-99) mg/dL POC Glucose (mg/dL) 153 H 112 H (75-99) mg/dL Hemoglobin A1c 6.7 H (4.0-6.0) % 12/03/18 12/03/18 12/03/18 Range/Units 06:44 06:44 06:56 WBC 3.5 L (3.8-10.6) k/uL Hct 33.9 L (34.0-46.0) % Plt Count 146 L (150-450) k/uL Lymphocytes # 0.8 L (1.0-4.8) k/uL Glucose 152 H (74-99) mg/dL POC Glucose (mg/dL) 160 H (75-99) mg/dL Hemoglobin A1c (4.0-6.0) % 12/03/18 Range/Units 11:28 WBC (3.8-10.6) k/uL Hct (34.0-46.0) % Plt Count (150-450) k/uL Lymphocytes # (1.0-4.8) k/uL Glucose (74-99) mg/dL POC Glucose (mg/dL) 121 H (75-99) mg/dL Hemoglobin A1c (4.0-6.0) % Microbiology - Last 24 Hours (Table) 12/02/18 07:42 Blood Culture - Preliminary Blood No Growth after 24 hours Assessment and Plan (1) Gastroenteritis Current Visit: Yes Status: Acute Code(s): K52.9 - NONINFECTIVE GASTROENTERITIS AND COLITIS, UNSPECIFIED SNOMED Code(s): 95330477 (2) Lactic acidosis Current Visit: Yes Status: Acute Code(s): E87.2 - ACIDOSIS SNOMED Code(s): 58018701
[2018-12-03 11:48] VITALS: BP 113/69; PULSE 72; RESP 17; TEMP 98.3
[2018-12-03] MEDS: ACETAMINOPHEN TAB 325 MG TAB PO PRN (12:23)
--- NOTE | 2018-12-04 14:43 | P.DS ---
Providers Date of admission: 12/02/18 07:53 Expected date of discharge: 12/03/18 Attending physician: Omar Naqvi MD Consults: 12/02/18 07:36 Consult Physician Routine Consulting Provider: Geovanna Craig Consult Reason/Comments: abdominal pain. lactic acidosis Do you want consulting provider notified?: Yes Primary care physician: Kj Aburto [facility] Course: This is a 63-year-old female patient of Dr. Aburto and Dr. Amaya with past medical history of type 2 diabetes, hypertension hyperlipidemia and GERD who was recently admitted on 11/04 and was found to have complete heart block for which pacemaker was placed on 11/05. Patient has been seen in ER multiple times since then including 11/16 for fever and nausea, 11/22 for chest pain 11/24 for abdominal pain, 11/26 with chest pain radiating to left arm and had heart cath done on 11/28 which was normal coronary arteries. Patient comes in today with nausea vomiting and diarrhea. Computed tomography scan was followed that suggestive gastroenteritis. Vital signs were stable with no episode of fever and pulse 73 blood pressure 106/7000% on room air. Initial blood work suggested a glucose of 196 the lactic acid of 4.7 calcium 10.8 point 3 negative blood sugar of 250. Vision initiated on IV levofloxacin and Flagyl lactic acid is improved to 1.4 with IV fluids. Patient has been seen by surgery and in bowel obstruction and perforation is ruled out. 12/03: Dr. Craig has signed off this case. Patient has been afebrile, heart rate 83, blood pressure 132/79, pulse ox 90% on room air. Lab work this morning reveals white count of 3.5, hemoglobin 11.5, platelet count 146. Electrolytes, renal function within normal limits, liver function tests within normal limits. Blood sugars running between 112 and 160. Patient denies having any abdominal pain. She denies any nausea or vomiting. She is tolerating diet. She is passing gas and had a bowel movement this morning. In general she feels that she is much better. We will plan to hold metformin at the time of discharge and patient has been provided a prescription for glipizide. Patient is being discharged home on oral antibiotics. Patient is discharged in stable condition. Discharge diagnoses: 1. Abdominal pain secondary to gastroenteritis 2. Complete heart block status post dual-chamber permanent pacemaker on 11/05/18 Echocardiogram shows EF of 50-55%, mild septal wall hypokinesia, left pericardial effusion, no aortic stenosis, mild TR and mild IA, no pulmonary hypertension borderline, RVSP of 33 3. Diabetes mellitus type 2. 4. Lactic acidosis likely secondary to hyperglycemia and dehydration 5. Hypertension. 6. Hyperlipidemia. . 7. Gastroesophageal reflux disease. Discharge plan: Home Impression and plan of care have been directed as dictated by the signing physician. Jami Ramires nurse practitioner acting as scribe for signing physician. Patient Condition at Discharge: Good Plan - Discharge Summary New Discharge Prescriptions: New metroNIDAZOLE [Flagyl] 500 mg PO Q8HR #15 tab glipiZIDE [Glucotrol] 2.5 mg PO AC-BRKFST #30 tab Levofloxacin [Levaquin] 500 mg PO DAILY #5 tab Continue Simvastatin [Zocor] 20 mg PO HS Omeprazole [PriLOSEC] 20 mg PO DAILY Magnesium Oxide [Mag-Ox] 400 mg PO DAILY Fish Oil/Dha/Epa [Fish Oil 1,200 mg Fish Oil] 1 cap PO HS Calcium Carbonate [Calcium] 600 mg PO BID Lisinopril [Prinivil] 10 mg PO BID Metoprolol Tartrate [Lopressor] 25 mg PO BID #60 tab Mag Hydrox/Al Hydrox/Simeth [Maalox] 30 ml PO Q6H PRN PRN Reason: Gi Upset Fluticasone Nasal [place] [Flonase Nasal [place]] 2 spr EA NOSTRIL DAILY Cholecalciferol [Vitamin D3 (25 Mcg = 1000 Iu)] 2,000 unit PO DAILY Melatonin 5 mg PO HS #30 tablet Diclofenac Sodium [Voltaren Gel] 4 gram TOPICAL QID #100 gram Isosorbide Mononitrate ER [Imdur] 15 mg PO DAILY #7 dose Discontinued metFORMIN HCL ER [Glucophage Xr] 500 mg PO AC-SUPPER metFORMIN HCL ER [Glucophage Xr] 1,000 mg PO AC-BRKFST Psyllium Husk 100% [Metamucil Packet] 6 gm PO DAILY Discharge Medication List Calcium Carbonate [Calcium] 600 mg PO BID 11/03/18 [History] Fish Oil/Dha/Epa [Fish Oil 1,200 mg Fish Oil] 1 cap PO HS 11/03/18 [History] Lisinopril [Prinivil] 10 mg PO BID 11/03/18 [History] Magnesium Oxide [Mag-Ox] 400 mg PO DAILY 11/03/18 [History] Omeprazole [PriLOSEC] 20 mg PO DAILY 11/03/18 [History] Simvastatin [Zocor] 20 mg PO HS 11/03/18 [History] Metoprolol Tartrate [Lopressor] 25 mg PO BID #60 tab 11/06/18 [Rx] Fluticasone Nasal [place] [Flonase Nasal [place]] 2 spr EA NOSTRIL DAILY 11/22/18 [History] Mag Hydrox/Al Hydrox/Simeth [Maalox] 30 ml PO Q6H PRN 11/22/18 [History] Cholecalciferol [Vitamin D3 (25 Mcg = 1000 Iu)] 2,000 unit PO DAILY 11/24/18 [History] Diclofenac Sodium [Voltaren Gel] 4 gram TOPICAL QID #100 gram 11/28/18 [Rx] Melatonin 5 mg PO HS #30 tablet 11/28/18 [Rx] Isosorbide Mononitrate ER [Imdur] 15 mg PO DAILY #7 dose 12/01/18 [Rx] Levofloxacin [Levaquin] 500 mg PO DAILY #5 tab 12/03/18 [Rx] glipiZIDE [Glucotrol] 2.5 mg PO AC-BRKFST #30 tab 12/03/18 [Rx] metroNIDAZOLE [Flagyl] 500 mg PO Q8HR #15 tab 12/03/18 [Rx] Follow up Appointment(s)/Referral(s): Kj Aburto MD [Primary Care Provider] - 12/10/18 1:15 pm [facility] Visiting Nurse, [NON-STAFF] - 1 Week Patient Instructions/Handouts: Glipizide (By mouth), Metronidazole (By mouth), Levofloxacin (By mouth), Constipation (DC), Gastroenteritis (DC), Acute Abdominal Pain (DC), Anxiety (ED), Lactic Acidosis (GEN) Discharge Disposition: HOME SELF-CARE
== END 2018-12-03 14:35 | disposition home or self-care (01) ==
LOC: EC 03:10 → 3NMEDONC 07:53
PROVIDERS: ADMIT Internal Medicine; ATTEND Internal Medicine
DX: K52.9 Noninfective gastroenteritis and colitis, unspecified (principal); I11.9 Hypertensive heart disease without heart failure; E78.5 Hyperlipidemia, unspecified; E87.2 Acidosis; K21.9 Gastro-esophageal reflux disease without esophagitis; Z95.0 Presence of cardiac pacemaker; I44.2 Atrioventricular block, complete; I31.3 Pericardial effusion (noninflammatory); E11.65 Type 2 diabetes mellitus with hyperglycemia; E86.0 Dehydration; I25.2 Old myocardial infarction; F41.9 Anxiety disorder, unspecified; E66.9 Obesity, unspecified; Z68.27 Body mass index [BMI] 27.0-27.9, adult; K59.09 Other constipation; I25.5 Ischemic cardiomyopathy; Z87.01 Personal history of pneumonia (recurrent); Z90.49 Acquired absence of other specified parts of digestive tract; Z79.899 Other long term (current) drug therapy; Z79.84 Long term (current) use of oral hypoglycemic drugs; Z88.6 Allergy status to analgesic agent; Z82.3 Family history of stroke; Z82.49 Family history of ischemic heart disease and other diseases of the circulatory system; Z80.3 Family history of malignant neoplasm of breast
CPT/HCPCS: 96361 ×2; 96366; 96367 ×2; 96372 ×2; 96365; 96375; 99285; 36415; 97161; 80053 ×2; 82150; 83605; 83690; 84484; 85025 ×2; 81003; 87040; 83036; 74176; G0378 ×2; J1644 ×2; J2405; J1956; J0696

== ENCOUNTER 2018-12-03 20:50 | Emergency (ER) | payer MEDICARE, OTHER ==
[2018-12-03] MEDS ORDERED: SODIUM CHLORIDE 0.9% 1,000 ML IV STA (22:06)
[2018-12-03] MEDS ORDERED: MORPHINE SULFATE 4 MG/ML SYRINGE IV STA (22:06)
[2018-12-03 22:59] LABS: Appearance,Urine Clear (Clear); Bilirubin,Urine Negative (Negative); Blood,Urine Negative (Negative); Color,Urine Light Yellow; Glucose,Urine (UA) Negative (Negative); Ketones,Urine Negative (Negative); Leukocyte Esterase,Urine Negative (Negative); Nitrite,Urine Negative (Negative); PH, Urine 6.5 (5.0-8.0); Protein,Urine Negative (Negative); Specific Gravity,Urine 1.005 (1.001-1.035); Urobilinogen,Urine <2.0 mg/dL (<2.0)
--- NOTE | 2018-12-03 23:16 | XR ---
EXAMINATION TYPE: XR KUB DATE OF EXAM: 12/03/2018 COMPARISON: NONE HISTORY: Pain TECHNIQUE: 2 views upright FINDINGS: There is no sign of intestinal obstruction or pneumoperitoneum. Fecal pattern is normal. Th ere are clips from cholecystectomy. There is no sign of a mass. There are no pathologic calcification s over the kidneys. IMPRESSION: Nonacute abdomen.
[2018-12-03 23:29] LABS: Basophils % (A) 1 %; Eosinophils # (A) 0.2 k/uL (0-0.7); Eosinophils % (A) 3 %; HCT 32.1 % (34.0-46.0); HGB 11.2 gm/dL (11.4-16.0); Lymphocytes % (A) 18 %; MCH 28.7 pg (25.0-35.0); MCHC 34.7 g/dL (31.0-37.0); MCV 82.6 fL (80.0-100.0); Mean Platelet Volume 7.1; Monocytes # (A) 0.2 k/uL (0-1.0); Monocytes % (A) 5 %; Neutrophils # (A) 3.9 k/uL (1.3-7.7); Neutrophils % (A) 73 %; Platelet Count 164 k/uL (150-450); RBC 3.89 m/uL (3.80-5.40); RDW 14.1 % (11.5-15.5); WBC 5.3 k/uL (3.8-10.6)
[2018-12-03 23:40] LABS: ALT 46 U/L (9-52); AST 18 U/L (14-36); African American GFR (CKD) >90 (>60 ml/min/1.73 sqM); Albumin 3.9 g/dL (3.5-5.0); Alkaline Phosphatase 62 U/L (38-126); Anion Gap 11 mmol/L; Blood Urea Nitrogen 9 mg/dL (7-17); Calcium 9.5 mg/dL (8.4-10.2); Carbon Dioxide 25 mmol/L (22-30); Chloride 102 mmol/L (98-107); Glucose 172 mg/dL (74-99); Potassium 4.2 mmol/L (3.5-5.1); Sodium 138 mmol/L (137-145); Total Bilirubin 0.2 mg/dL (0.2-1.3); Total Protein 6.8 g/dL (6.3-8.2)
--- NOTE | 2018-12-04 00:17 | ED ---
General Adult HPI - General Chief complaint: Abdominal Pain Stated complaint: Abd Pain-post op Time Seen by Provider: 12/03/18 21:11 Source: patient, family, RN notes reviewed, old records reviewed Mode of arrival: wheelchair Limitations: no limitations - History of Present Illness Initial comments: 63-year-old female patient in ed with chief complaint of abdominal pain. Patient had a short admission for gastroenteritis is discharged with Levaquin and Flagyl today. Presents in emergency department with generalized periumbilical abdominal pain today. She also reports that he continues to have diarrhea. Also reports sore throat. Denies any other complaints at this time. Systemic: Pt denies fatigue, fever/chills, rash. Pt denies weakness, night sweats, weight loss. Neuro: Pt denies headache, visual disturbances, syncope or pre-syncope. HEENT: Pt denies ocular discharge or irritation, otalgia, rhinorrhea, pharyngitis or notable lymphadenopathy. Cardiopulmonary: Pt denies chest pain, SOB, heart palpitations, dyspnea on exertion. Abdominal/GI: Pt denies n/v. : Pt denies dysuria, burning w/ urination, frequency/urgency. Denies new onset urinary or bowel incontinence. MSK: Pt denies myalgia, loss of strength or function in extremities. Neuro: Pt denies new onset weakness, paresthesias. - Related Data Home Medications Medication Instructions Recorded Confirmed Calcium Carbonate [Calcium] 600 mg PO BID 11/03/18 12/03/18 Fish Oil/Dha/Epa [Fish Oil 1,200 1 cap PO HS 11/03/18 12/03/18 mg Fish Oil] Lisinopril [Prinivil] 10 mg PO BID 11/03/18 12/03/18 Magnesium Oxide [Mag-Ox] 400 mg PO DAILY 11/03/18 12/03/18 Omeprazole [PriLOSEC] 20 mg PO DAILY 11/03/18 12/03/18 Simvastatin [Zocor] 20 mg PO HS 11/03/18 12/03/18 Fluticasone Nasal [place] [Flonase 2 spr EA NOSTRIL DAILY 11/22/18 12/03/18 Nasal [place]] Mag Hydrox/Al Hydrox/Simeth 30 ml PO Q6H PRN 11/22/18 12/03/18 [Maalox] Cholecalciferol [Vitamin D3 (25 2,000 unit PO DAILY 11/24/18 12/03/18 Mcg = 1000 Iu)] Previous Rx's Medication Instructions Recorded Metoprolol Tartrate [Lopressor] 25 mg PO BID #60 tab 11/06/18 Diclofenac Sodium [Voltaren Gel] 4 gram TOPICAL QID #100 gram 11/28/18 Melatonin 5 mg PO HS #30 tablet 11/28/18 Isosorbide Mononitrate ER [Imdur] 15 mg PO DAILY #7 dose 12/01/18 Levofloxacin [Levaquin] 500 mg PO DAILY #5 tab 12/03/18 glipiZIDE [Glucotrol] 2.5 mg PO AC-BRKFST #30 tab 12/03/18 metroNIDAZOLE [Flagyl] 500 mg PO Q8HR #15 tab 12/03/18 Allergies Allergy/AdvReac Type Severity Reaction Status Date / Time aspirin AdvReac Abdominal Verified 12/03/18 21:13 Pain Review of Systems ROS Statement: Those systems with pertinent positive or pertinent negative responses have been documented in the HPI. ROS Other: All systems not noted in ROS Statement are negative. Past Medical History Past Medical History: Diabetes Mellitus, GERD/Reflux, Hyperlipidemia, Hypertension, Pneumonia Additional Past Medical History / Comment(s): Complete heart block Last Myocardial Infarction Date:: 10/2018 History of Any Multi-Drug Resistant Organisms: None Reported Past Surgical History: Cholecystectomy, Heart Catheterization, Hysterectomy, Pacemaker Past Anesthesia/Blood Transfusion Reactions: No Reported Reaction Type of Cardiac Device: Biventricular Pacemaker Device Placement Date:: 10/2018 Past Psychological History: Anxiety Smoking Status: Never smoker Past Alcohol Use History: None Reported Past Drug Use History: None Reported - Past Family History Father Additional Family Medical History / Comment(s): Father in his 80s from a stroke. Mother Additional Family Medical History / Comment(s): Mother is with history of hypertension. Brother(s) Additional Family Medical History / Comment(s): Patient has one brother history of [place] at age 60. Sister(s) Family Medical History: Cancer Additional Family Medical History / Comment(s): breast General Exam - General Exam Comments Initial Comments: Constitutional: NAD, AOX3, Pt has pleasant affect. HEENT: NC/AT, trachea midline, neck supple, no lymphadenopathy. Posterior pharynx non erythematous, without exudates. External ears appear normal, without discharge. Mucous membranes moist. Eyes PERRLA, EOM intact. There is no scleral icterus. No pallor noted. Cardiopulmonary: RRR, no murmurs, rubs or gallops, no JVD noted. Lungs CTAB in anterior and posterior ribera. No peripheral edema. Abdominal exam: Abdomen soft and non-distended. Abdomen very mildly tender to palpation. Umbilical region. No ecchymoses. No other areas of abdominal tenderness.. Bowel sounds active in LLQ. No hepatosplenomegaly. No ecchymosis Neuro: CN II-XII grossly intact. No nuchal rigidity. No raccon eyes, no love sign, no hemotympanum. No cervical spinal tenderness. MSK: No posterior calf tenderness bilaterally, homans sign negative bilaterally. Posterior tibialis and radial pulse +2 bilaterally. Sensation intact in upper and lower extremities. Full active ROM in upper and lower extremities, 5/5 stregnth. Limitations: no limitations Course Vital Signs 12/03/18 21:07 Temperature 97.6 F Pulse Rate 65 Respiratory 18 Rate Blood Pressure 142/77 O2 Sat by Pulse 97 Oximetry Medical Decision Making - Medical Decision Making 63-year-old female patient in ed with chief complaint of abdominal pain. Patient had a short admission for gastroenteritis is discharged with Levaquin and Flagyl today. Presents in emergency department with generalized periumbilical abdominal pain today. She also reports that he continues to have diarrhea. Also reports sore throat. Denies any other complaints at this time. Patient vital signs stable, afebrile. Physical exam displayed very mild. Umbilical tenderness. Review of CT abdomen and pelvis yesterday displayed finding since and with mild gastroenteritis. Laboratory investigations conducted today are non-impressive. Neck acid 0.6. UA negative. Group A strep negative. Posterior pharynx non-erythematous. KUB is fully nonacute abdomen. Patient feeling much improved. Patient was discharged, continue antibiotics will follow-up with Dr. Muhammad. Return precautions discussed. Case discussed with Dr. Crowley. - Lab Data Result diagrams: 12/03/18 23:13 12/03/18 23:13 Lab Results 12/03/18 12/03/18 12/03/18 Range/Units 22:54 23:06 23:13 WBC 5.3 (3.8-10.6) k/uL RBC 3.89 (3.80-5.40) m/uL Hgb 11.2 L (11.4-16.0) gm/dL Hct 32.1 L (34.0-46.0) % MCV 82.6 (80.0-100.0) fL MCH 28.7 (25.0-35.0) pg MCHC 34.7 (31.0-37.0) g/dL RDW 14.1 (11.5-15.5) % Plt Count 164 (150-450) k/uL Neutrophils % 73 % Lymphocytes % 18 % Monocytes % 5 % Eosinophils % 3 % Basophils % 1 % Neutrophils # 3.9 (1.3-7.7) k/uL Lymphocytes # 1.0 (1.0-4.8) k/uL Monocytes # 0.2 (0-1.0) k/uL Eosinophils # 0.2 (0-0.7) k/uL Basophils # 0.0 (0-0.2) k/uL Sodium (137-145) mmol/L Potassium (3.5-5.1) mmol/L Chloride (98-107) mmol/L Carbon Dioxide (22-30) mmol/L Anion Gap mmol/L BUN (7-17) mg/dL Creatinine (0.52-1.04) mg/dL Est GFR (CKD-EPI)AfAm (>60 ml/min/1.73 sqM) Est GFR (CKD-EPI)NonAf (>60 ml/min/1.73 sqM) Glucose (74-99) mg/dL Plasma Lactic Acid Isaac (0.7-2.0) mmol/L Calcium (8.4-10.2) mg/dL Total Bilirubin (0.2-1.3) mg/dL AST (14-36) U/L ALT (9-52) U/L Alkaline Phosphatase (38-126) U/L Total Protein (6.3-8.2) g/dL Albumin (3.5-5.0) g/dL Lipase (23-300) U/L Urine Color Light Yellow Urine Appearance Clear (Clear) Urine pH 6.5 (5.0-8.0) Ur Specific [place] 1.005 (1.001-1.035) Urine Protein Negative (Negative) Urine Glucose (UA) Negative (Negative) Urine Ketones Negative (Negative) Urine Blood Negative (Negative) Urine Nitrite Negative (Negative) Urine Bilirubin Negative (Negative) Urine Urobilinogen <2.0 (<2.0) mg/dL Ur Leukocyte Esterase Negative (Negative) Group A Strep Rapid Negative (Negative) 12/03/18 12/03/18 Range/Units 23:13 23:13 WBC (3.8-10.6) k/uL RBC (3.80-5.40) m/uL Hgb (11.4-16.0) gm/dL Hct (34.0-46.0) % MCV (80.0-100.0) fL MCH (25.0-35.0) pg MCHC (31.0-37.0) g/dL RDW (11.5-15.5) % Plt Count (150-450) k/uL Neutrophils % % Lymphocytes % % Monocytes % % Eosinophils % % Basophils % % Neutrophils # (1.3-7.7) k/uL Lymphocytes # (1.0-4.8) k/uL Monocytes # (0-1.0) k/uL Eosinophils # (0-0.7) k/uL Basophils # (0-0.2) k/uL Sodium 138 (137-145) mmol/L Potassium 4.2 (3.5-5.1) mmol/L Chloride 102 (98-107) mmol/L Carbon Dioxide 25 (22-30) mmol/L Anion Gap 11 mmol/L BUN 9 (7-17) mg/dL Creatinine 0.68 (0.52-1.04) mg/dL Est GFR (CKD-EPI)AfAm >90 (>60 ml/min/1.73 sqM) Est GFR (CKD-EPI)NonAf >90 (>60 ml/min/1.73 sqM) Glucose 172 H (74-99) mg/dL Plasma Lactic Acid Isaac 0.6 L (0.7-2.0) mmol/L Calcium 9.5 (8.4-10.2) mg/dL Total Bilirubin 0.2 (0.2-1.3) mg/dL AST 18 (14-36) U/L ALT 46 (9-52) U/L Alkaline Phosphatase 62 (38-126) U/L Total Protein 6.8 (6.3-8.2) g/dL Albumin 3.9 (3.5-5.0) g/dL Lipase 124 (23-300) U/L Urine Color Urine Appearance (Clear) Urine pH (5.0-8.0) Ur Specific [place] (1.001-1.035) Urine Protein (Negative) Urine Glucose (UA) (Negative) Urine Ketones (Negative) Urine Blood (Negative) Urine Nitrite (Negative) Urine Bilirubin (Negative) Urine Urobilinogen (<2.0) mg/dL Ur Leukocyte Esterase (Negative) Group A Strep Rapid (Negative) Disposition Clinical Impression: Abdominal pain, Diarrhea Disposition: HOME SELF-CARE Condition: Stable Instructions (If sedation given, give patient instructions): Abdominal Pain (ED) Additional Instructions: Patient to adhere to previously discussed treatment plan and will take medi cation(s) as directed. Patient to follow up with PCP in 1-2 days. Patient to return to ED if symptoms do not improve. Follow-up with primary care provider and Dr. Muhammad tomorrow. Return to ER i f condition worsens. Is patient prescribed a controlled substance at d/c from ED?: No Referrals: Kj Aburto MD [Primary Care Provider] - 1-2 days Geovanna Craig MD [STAFF PHYSICIAN] - 1-2 days
[2018-12-04 00:38] VITALS: BP 125/73; PULSE 73; RESP 20; TEMP 97.8
== END 2018-12-04 00:42 | disposition home or self-care (01) ==
LOC: EC 20:50
DX: K52.9 Noninfective gastroenteritis and colitis, unspecified (principal); J02.9 Acute pharyngitis, unspecified; K21.9 Gastro-esophageal reflux disease without esophagitis; E78.5 Hyperlipidemia, unspecified; I10 Essential (primary) hypertension; Z90.49 Acquired absence of other specified parts of digestive tract; Z95.818 Presence of other cardiac implants and grafts; Z90.710 Acquired absence of both cervix and uterus; Z95.0 Presence of cardiac pacemaker; Z79.899 Other long term (current) drug therapy; Z88.6 Allergy status to analgesic agent
CPT/HCPCS: 36415; 80053; 83605; 83690; 85025; 81003; 87081; 87430; 74018; 99284; 96374; J2270

== ENCOUNTER 2018-12-04 15:51 | Emergency (ER) | payer MEDICARE, OTHER ==
[2018-12-04 16:13] VITALS: RESP 18
[2018-12-04] MEDS ORDERED: SODIUM CHLORIDE 0.9% 1,000 ML IV STA (16:55)
[2018-12-04] MEDS ORDERED: SODIUM CHLORIDE 0.9% 500 ML 500 ML IV STA (16:55)
[2018-12-04] MEDS ORDERED: METOCLOPRAMIDE 5 MG/ML 2 ML VIAL IVP STA (16:55)
[2018-12-04] MEDS ORDERED: ACETAMINOPHEN TAB 500 MG TAB PO STA (16:56)
[2018-12-04] MEDS ORDERED: FAMOTIDINE 20 MG/2 ML VIAL IV STA (16:56)
[2018-12-04 18:00] LABS: Basophils % (A) 1 %; Eosinophils # (A) 0.1 k/uL (0-0.7); Eosinophils % (A) 2 %; HCT 35.3 % (34.0-46.0); HGB 11.5 gm/dL (11.4-16.0); Lymphocytes # (A) 0.9 k/uL (1.0-4.8); Lymphocytes % (A) 22 %; MCH 27.3 pg (25.0-35.0); MCHC 32.6 g/dL (31.0-37.0); MCV 83.8 fL (80.0-100.0); Mean Platelet Volume 7.7; Monocytes # (A) 0.3 k/uL (0-1.0); Monocytes % (A) 8 %; Neutrophils # (A) 2.8 k/uL (1.3-7.7); Neutrophils % (A) 66 %; Platelet Count 163 k/uL (150-450); RBC 4.21 m/uL (3.80-5.40); RDW 14.4 % (11.5-15.5); WBC 4.3 k/uL (3.8-10.6)
[2018-12-04 18:01] LABS: Appearance,Urine Clear (Clear); Bilirubin,Urine Negative (Negative); Blood,Urine Negative (Negative); Color,Urine Light Yellow; Glucose,Urine (UA) Negative (Negative); Ketones,Urine Negative (Negative); Leukocyte Esterase,Urine Negative (Negative); Nitrite,Urine Negative (Negative); PH, Urine 6.5 (5.0-8.0); Protein,Urine Negative (Negative); Specific Gravity,Urine 1.003 (1.001-1.035); Urobilinogen,Urine <2.0 mg/dL (<2.0)
[2018-12-04 18:18] LABS: ALT 41 U/L (9-52); AST 21 U/L (14-36); African American GFR (CKD) >90 (>60 ml/min/1.73 sqM); Alkaline Phosphatase 65 U/L (38-126); Amylase 43 U/L (30-110); Anion Gap 10 mmol/L; Blood Urea Nitrogen 6 mg/dL (7-17); Calcium 9.8 mg/dL (8.4-10.2); Carbon Dioxide 24 mmol/L (22-30); Chloride 104 mmol/L (98-107); Glucose 130 mg/dL (74-99); Potassium 4.1 mmol/L (3.5-5.1); Sodium 138 mmol/L (137-145); Total Bilirubin 0.3 mg/dL (0.2-1.3); Total Protein 7.1 g/dL (6.3-8.2)
--- NOTE | 2018-12-04 18:24 | ED ---
General Adult HPI - General Chief complaint: Recheck/Abnormal Lab/Rx Stated complaint: Headache Time Seen by Provider: 12/04/18 16:49 Source: patient Mode of arrival: ambulatory Limitations: no limitations - History of Present Illness Initial comments: This 63-year-old female presents for several complaints. She states that she developed a headache this morning. She does have a history of migraines and this is somewhat similar. It is diffuse in nature. She apparently was seen at [facility] but states that they did not do anything for her. She went home and took an Aleve and this seemed to help significantly. She is stating that it is almost resolved but she is still requesting pain medications. She also claims of some midepigastric abdominal pain which started this morning and this is associated with some nausea but no fevers or diarrhea.. Third complaint is that of some hyperglycemia. She is diabetic and states that her blood sugar was up to approximately 220 this morning. She denies any other complaints or modifying factors. - Related Data Home Medications Medication Instructions Recorded Confirmed Calcium Carbonate [Calcium] 600 mg PO BID 11/03/18 12/04/18 Fish Oil/Dha/Epa [Fish Oil 1,200 1 cap PO HS 11/03/18 12/04/18 mg Fish Oil] Lisinopril [Prinivil] 10 mg PO BID 11/03/18 12/04/18 Magnesium Oxide [Mag-Ox] 400 mg PO DAILY 11/03/18 12/04/18 Omeprazole [PriLOSEC] 20 mg PO DAILY 11/03/18 12/04/18 Simvastatin [Zocor] 20 mg PO HS 11/03/18 12/04/18 Fluticasone Nasal [place] [Flonase 2 spr EA NOSTRIL DAILY 11/22/18 12/04/18 Nasal [place]] Mag Hydrox/Al Hydrox/Simeth 30 ml PO Q6H PRN 11/22/18 12/04/18 [Maalox] Cholecalciferol [Vitamin D3 (25 2,000 unit PO DAILY 11/24/18 12/04/18 Mcg = 1000 Iu)] Previous Rx's Medication Instructions Recorded Metoprolol Tartrate [Lopressor] 25 mg PO BID #60 tab 11/06/18 Diclofenac Sodium [Voltaren Gel] 4 gram TOPICAL QID #100 gram 11/28/18 Melatonin 5 mg PO HS #30 tablet 11/28/18 Isosorbide Mononitrate ER [Imdur] 15 mg PO DAILY #7 dose 12/01/18 Levofloxacin [Levaquin] 500 mg PO DAILY #5 tab 12/03/18 glipiZIDE [Glucotrol] 2.5 mg PO AC-BRKFST #30 tab 12/03/18 metroNIDAZOLE [Flagyl] 500 mg PO Q8HR #15 tab 12/03/18 Allergies Allergy/AdvReac Type Severity Reaction Status Date / Time aspirin AdvReac Abdominal Verified 12/04/18 17:04 Pain Review of Systems ROS Statement: Those systems with pertinent positive or pertinent negative responses have been documented in the HPI. ROS Other: All systems not noted in ROS Statement are negative. Past Medical History Past Medical History: Diabetes Mellitus, GERD/Reflux, Hyperlipidemia, Hypertension, Pneumonia Additional Past Medical History / Comment(s): Complete heart block Last Myocardial Infarction Date:: 10/2018 History of Any Multi-Drug Resistant Organisms: None Reported Past Surgical History: Cholecystectomy, Heart Catheterization, Hysterectomy, Pacemaker Past Anesthesia/Blood Transfusion Reactions: No Reported Reaction Type of Cardiac Device: Biventricular Pacemaker Device Placement Date:: 10/2018 Past Psychological History: Anxiety Smoking Status: Never smoker Past Alcohol Use History: None Reported Past Drug Use History: None Reported - Past Family History Father Additional Family Medical History / Comment(s): Father in his 80s from a stroke. Mother Additional Family Medical History / Comment(s): Mother is with history of hypertension. Brother(s) Additional Family Medical History / Comment(s): Patient has one brother history of [place] at age 60. Sister(s) Family Medical History: Cancer Additional Family Medical History / Comment(s): breast General Exam - General Exam Comments Initial Comments: GENERAL: The patient is well nourished and well hydrated. VITAL SIGNS: Heart rate, blood pressure, respiratory rate reviewed as recorded in nurse's notes. EYES: Pupils are round and reactive. Extraocular movements are intact. No conjunctival / lid redness or swelling. ENT: No external evidence of injury, swelling, or ecchymosis. Airway is patent. Throat is clear. NECK: Nontender. No swelling or evidence of injury. No subcutaneous emphysema. Trachea is midline. No thyroid mass. HEART: Regular rate and rhythm. Good peripheral pulses. LUNGS/CHEST: Breath sounds clear and equal bilaterally. No rales, rhonchi, or wheezes. No ecchymosis, subcutaneous emphysema, or tenderness. ABDOMEN: There is some mild tenderness in the midepigastric region. No palpable masses or organomegaly. No peritoneal signs. No abdominal wall swelling or ecchymosis. EXTREMITIES: No extremity tenderness. Normal muscle tone and function. No thoracolumbar tenderness. NEUROLOGIC: Sensation is grossly intact. Cranial nerve exam reveals face is symmetrical, tongue is midline, speech is clear. SKIN: No abrasions or ecchymosis is noted. No induration or masses noted. PSYCHIATRIC: Alert and oriented. Appropriate behavior and judgment. Limitations: no limitations Course Vital Signs 12/04/18 16:10 Temperature 98.0 F Pulse Rate 81 Respiratory 18 Rate Blood Pressure 143/75 O2 Sat by Pulse 98 Oximetry Medical Decision Making - Medical Decision Making The patient was seen and examined. All diagnostics were reviewed. She receives some Reglan as well as some Tylenol. She also receives some Pepcid intravenously. She does not appear to be in any distress initially and on rech scot. She did have a laboratory analysis which does not show any acute abnormalities. The blood sugar is 130 on her labs. She states that she feels remarkably improved. It is felt as though she is stable for discharge. She likely does have a degree of gastritis or reflux and she is instructed to increase her Prilosec from 20 mg per day to 40 mg per day. Return parameters are discussed. - Lab Data Result diagrams: 12/04/18 17:30 12/04/18 17:30 Lab Results 12/04/18 12/04/18 12/04/18 Range/Units 17:30 17:30 17:30 WBC 4.3 (3.8-10.6) k/uL RBC 4.21 (3.80-5.40) m/uL Hgb 11.5 (11.4-16.0) gm/dL Hct 35.3 (34.0-46.0) % MCV 83.8 (80.0-100.0) fL MCH 27.3 (25.0-35.0) pg MCHC 32.6 (31.0-37.0) g/dL RDW 14.4 (11.5-15.5) % Plt Count 163 (150-450) k/uL Neutrophils % 66 % Lymphocytes % 22 % Monocytes % 8 % Eosinophils % 2 % Basophils % 1 % Neutrophils # 2.8 (1.3-7.7) k/uL Lymphocytes # 0.9 L (1.0-4.8) k/uL Monocytes # 0.3 (0-1.0) k/uL Eosinophils # 0.1 (0-0.7) k/uL Basophils # 0.0 (0-0.2) k/uL Sodium 138 (137-145) mmol/L Potassium 4.1 (3.5-5.1) mmol/L Chloride 104 (98-107) mmol/L Carbon Dioxide 24 (22-30) mmol/L Anion Gap 10 mmol/L BUN 6 L (7-17) mg/dL Creatinine 0.65 (0.52-1.04) mg/dL Est GFR (CKD-EPI)AfAm >90 (>60 ml/min/1.73 sqM) Est GFR (CKD-EPI)NonAf >90 (>60 ml/min/1.73 sqM) Glucose 130 H (74-99) mg/dL Calcium 9.8 (8.4-10.2) mg/dL Total Bilirubin 0.3 (0.2-1.3) mg/dL AST 21 (14-36) U/L ALT 41 (9-52) U/L Alkaline Phosphatase 65 (38-126) U/L Total Protein 7.1 (6.3-8.2) g/dL Albumin 4.0 (3.5-5.0) g/dL Amylase 43 (30-110) U/L Lipase 107 (23-300) U/L Urine Color Light Yellow Urine Appearance Clear (Clear) Urine pH 6.5 (5.0-8.0) Ur Specific [place] 1.003 (1.001-1.035) Urine Protein Negative (Negative) Urine Glucose (UA) Negative (Negative) Urine Ketones Negative (Negative) Urine Blood Negative (Negative) Urine Nitrite Negative (Negative) Urine Bilirubin Negative (Negative) Urine Urobilinogen <2.0 (<2.0) mg/dL Ur Leukocyte Esterase Negative (Negative) Disposition Clinical Impression: Hyperglycemia, Migraine, Acute abdominal pain, Diabetes, Gastritis Disposition: HOME SELF-CARE Condition: Good Instructions (If sedation given, give patient instructions): Abdominal Pain (ED), Migraine Headache (ED), Gastritis (ED) Additional Instructions: Please increase your Prilosec from 20 mg a day to 40 mg per day. Is patient prescribed a controlled substance at d/c from ED?: No Referrals: Kj Aburto MD [Primary Care Provider] - 1-2 days Time of Disposition: 18:31
[2018-12-04 19:38] VITALS: BP 154/93; PULSE 65; TEMP 98.2
--- NOTE | 2018-12-04 20:05 | XR ---
EXAMINATION TYPE: XR abdomen 2V DATE OF EXAM: 12/04/2018 6:21 PM CLINICAL HISTORY: Pain TECHNIQUE: 2 upright views COMPARISON: 12/03/2018 at 11:22 PM FINDINGS: Visualized lung bases and pleural spaces are negative. Cardiac pacemaker noted. There is no pneumoperitoneum or pneumatosis. There is no dilated bowel, but scattered gas fluid level s are noted in nondilated loops of bowel, a nonspecific finding. No excessive colonic stool. No acute skeletal or soft tissue findings are evident. IMPRESSION: NO DEFINITE ACUTE RADIOGRAPHIC PROCESS.
== END 2018-12-04 18:55 | disposition home or self-care (01) ==
LOC: EC 15:51
DX: G43.909 Migraine, unspecified, not intractable, without status migrainosus (principal); K29.70 Gastritis, unspecified, without bleeding; E11.65 Type 2 diabetes mellitus with hyperglycemia; F41.9 Anxiety disorder, unspecified; K21.9 Gastro-esophageal reflux disease without esophagitis; E78.5 Hyperlipidemia, unspecified; I10 Essential (primary) hypertension; I44.2 Atrioventricular block, complete; Z79.899 Other long term (current) drug therapy; Z79.84 Long term (current) use of oral hypoglycemic drugs; Z88.6 Allergy status to analgesic agent; Z90.49 Acquired absence of other specified parts of digestive tract; Z95.5 Presence of coronary angioplasty implant and graft; Z95.0 Presence of cardiac pacemaker
CPT/HCPCS: 36415; 80053; 82150; 83690; 85025; 81003; 74019; 99283; 96374; 96375; 96361; J2765

== ENCOUNTER 2018-12-05 06:36 | Emergency (ER) | payer MEDICARE, OTHER ==
[2018-12-05 06:42] VITALS: TEMP 97.8
[2018-12-05] MEDS ORDERED: SODIUM CHLORIDE 0.9% 1,000 ML IV ONE (06:51)
--- NOTE | 2018-12-05 06:55 | ED ---
General Adult HPI - General Chief complaint: Recheck/Abnormal Lab/Rx Stated complaint: Dizziness, Nausea Time Seen by Provider: 12/05/18 06:39 Source: patient, EMS, RN notes reviewed, old records reviewed Mode of arrival: EMS Limitations: no limitations - History of Present Illness Initial comments: 63-year-old female well known to emergency department. She presents today for concerns for abnormal blood sugar and some dizziness and dry mouth. Patient states that she checked her blood sugar last night and it was 202. denies any pain at this time. Denies any nausea or vomiting. Patient states that she has chest pain or abdominal pain or shortness of breath. She reports that she has was have a follow-up appointment today with her primary care physician. She's been to the emergency department between here in [facility] over 15 times with the past month. - Related Data Home Medications Medication Instructions Recorded Confirmed Calcium Carbonate [Calcium] 600 mg PO BID 11/03/18 12/05/18 Fish Oil/Dha/Epa [Fish Oil 1,200 1 cap PO HS 11/03/18 12/05/18 mg Fish Oil] Lisinopril [Prinivil] 10 mg PO BID 11/03/18 12/05/18 Magnesium Oxide [Mag-Ox] 400 mg PO DAILY 11/03/18 12/05/18 Omeprazole [PriLOSEC] 20 mg PO DAILY 11/03/18 12/05/18 Simvastatin [Zocor] 20 mg PO HS 11/03/18 12/05/18 Fluticasone Nasal [place] [Flonase 2 spr EA NOSTRIL DAILY 11/22/18 12/05/18 Nasal [place]] Mag Hydrox/Al Hydrox/Simeth 30 ml PO Q6H PRN 11/22/18 12/05/18 [Maalox] Cholecalciferol [Vitamin D3 (25 2,000 unit PO DAILY 11/24/18 12/05/18 Mcg = 1000 Iu)] Previous Rx's Medication Instructions Recorded Metoprolol Tartrate [Lopressor] 25 mg PO BID #60 tab 11/06/18 Diclofenac Sodium [Voltaren Gel] 4 gram TOPICAL QID #100 gram 11/28/18 Melatonin 5 mg PO HS #30 tablet 11/28/18 Isosorbide Mononitrate ER [Imdur] 15 mg PO DAILY #7 dose 12/01/18 Levofloxacin [Levaquin] 500 mg PO DAILY #5 tab 12/03/18 glipiZIDE [Glucotrol] 2.5 mg PO AC-BRKFST #30 tab 12/03/18 metroNIDAZOLE [Flagyl] 500 mg PO Q8HR #15 tab 12/03/18 Allergies Allergy/AdvReac Type Severity Reaction Status Date / Time aspirin AdvReac Abdominal Verified 12/05/18 07:32 Pain Review of Systems ROS Statement: Those systems with pertinent positive or pertinent negative responses have been documented in the HPI. ROS Other: All systems not noted in ROS Statement are negative. Past Medical History Past Medical History: Diabetes Mellitus, GERD/Reflux, Hyperlipidemia, Hypertension, Pneumonia Additional Past Medical History / Comment(s): Complete heart block Last Myocardial Infarction Date:: 10/2018 History of Any Multi-Drug Resistant Organisms: None Reported Past Surgical History: Cholecystectomy, Heart Catheterization, Hysterectomy, Pacemaker Past Anesthesia/Blood Transfusion Reactions: No Reported Reaction Type of Cardiac Device: Biventricular Pacemaker Device Placement Date:: 10/2018 Past Psychological History: Anxiety Smoking Status: Never smoker Past Alcohol Use History: None Reported Past Drug Use History: None Reported - Past Family History Father Additional Family Medical History / Comment(s): Father in his 80s from a stroke. Mother Additional Family Medical History / Comment(s): Mother is with history of hypertension. Brother(s) Additional Family Medical History / Comment(s): Patient has one brother history of [place] at age 60. Sister(s) Family Medical History: Cancer Additional Family Medical History / Comment(s): breast General Exam - General Exam Comments Initial Comments: This is a 63-year-old female. Patient is resting comfortably in bed. Appears in no distress. Limitations: no limitations General appearance: alert, in no apparent distress Head exam: Present: atraumatic, normocephalic, normal inspection Eye exam: Present: normal appearance, PERRL, EOMI. Absent: scleral icterus, conjunctival injection, periorbital swelling ENT exam: Present: normal exam, mucous membranes moist Neck exam: Present: normal inspection. Absent: tenderness, meningismus, lymphadenopathy Respiratory exam: Present: normal lung sounds bilaterally. Absent: respiratory distress, wheezes, rales, rhonchi, stridor Cardiovascular Exam: Present: regular rate, normal rhythm, normal heart sounds. Absent: systolic murmur, diastolic murmur, rubs, gallop, clicks GI/Abdominal exam: Present: soft, normal bowel sounds. Absent: distended, tenderness, guarding, rebound, rigid Back exam: Present: normal inspection Neurological exam: Present: alert, oriented X3, CN II-XII intact Psychiatric exam: Present: normal affect, normal mood Skin exam: Present: warm, dry, intact, normal color. Absent: rash Course Vital Signs 12/05/18 06:39 Temperature 97.8 F Pulse Rate 77 Respiratory 19 Rate Blood Pressure 148/83 O2 Sat by Pulse 98 Oximetry Medical Decision Making - Medical Decision Making 63-year-old female presents today for concern for dry mouth, concern for dehydration dizziness. Patient also reports she is concerned that her blood s ugars off. She reports is 200 when she had it checked last night. She is in the emergency department earlier today but then left because she was in Patient didn't want to wait. Patient presents today from EMS. This time she has no pain. Physical exam is unremarkable. She states that she is supposed to see her PCP this afternoon. Patient has been to emergency department multiple times within the past month for numerous complaints. At this time patient's blood sugar is normal at 117. She was given a liter bolus and labs were obtained. Lab work was reviewed and unremarkable. EKG shows no changes and this showed continued atrial paced rhythm. Again she denies any pain. I discussed the Patient in follow-up with her primary care doctor she is very concerned with her blood sugar management. Discussed that this is best managed by her PCP. QUESTIONS were answered. - Lab Data Result diagrams: 12/05/18 07:30 12/05/18 07:30 Lab Results 12/05/18 12/05/18 12/05/18 Range/Units 07:30 07:30 08:00 WBC 4.2 (3.8-10.6) k/uL RBC 4.04 (3.80-5.40) m/uL Hgb 11.1 L (11.4-16.0) gm/dL Hct 34.4 (34.0-46.0) % MCV 85.1 (80.0-100.0) fL MCH 27.5 (25.0-35.0) pg MCHC 32.3 (31.0-37.0) g/dL RDW 14.5 (11.5-15.5) % Plt Count 158 (150-450) k/uL Neutrophils % 77 % Lymphocytes % 14 % Monocytes % 4 % Eosinophils % 3 % Basophils % 1 % Neutrophils # 3.2 (1.3-7.7) k/uL Lymphocytes # 0.6 L (1.0-4.8) k/uL Monocytes # 0.2 (0-1.0) k/uL Eosinophils # 0.1 (0-0.7) k/uL Basophils # 0.0 (0-0.2) k/uL Sodium 139 (137-145) mmol/L Potassium 4.0 (3.5-5.1) mmol/L Chloride 105 (98-107) mmol/L Carbon Dioxide 26 (22-30) mmol/L Anion Gap 8 mmol/L BUN 5 L (7-17) mg/dL Creatinine 0.68 (0.52-1.04) mg/dL Est GFR (CKD-EPI)AfAm >90 (>60 ml/min/1.73 sqM) Est GFR (CKD-EPI)NonAf >90 (>60 ml/min/1.73 sqM) Glucose 117 H (74-99) mg/dL Calcium 9.1 (8.4-10.2) mg/dL Urine Color Colorless Urine Appearance Clear (Clear) Urine pH 7.0 (5.0-8.0) Ur Specific [place] 1.001 (1.001-1.035) Urine Protein Negative (Negative) Urine Glucose (UA) Negative (Negative) Urine Ketones Negative (Negative) Urine Blood Negative (Negative) Urine Nitrite Negative (Negative) Urine Bilirubin Negative (Negative) Urine Urobilinogen <2.0 (<2.0) mg/dL Ur Leukocyte Esterase Negative (Negative) 12/05/18 07:54 EKG performed at 11:40 AM shows atrial sense ventricular paced rhythm with prolonged delete infection. Abnormal EKG. No change from last EKG is. Acuity 72 bpm. Was 270 ms. Respirations 138 ms. QT QTc is 444/46 most seconds. Disposition Clinical Impression: Diabetes, Dry mouth, unspecified Disposition: HOME SELF-CARE Condition: Good Instructions (If sedation given, give patient instructions): Lightheadedness (ED) Additional Instructions: Please use medication as discussed. Drink plenty of water. Please follow up with family doctor today. . Please return to the emergency room if your symptoms increase or worsen or for any other concerns. Is patient prescribed a controlled substance at d/c from ED?: No Referrals: Kj Aburto MD [Primary Care Provider] - 1-2 days Time of Disposition: 08:42
[2018-12-05 07:40] LABS: Basophils % (A) 1 %; Eosinophils # (A) 0.1 k/uL (0-0.7); Eosinophils % (A) 3 %; HCT 34.4 % (34.0-46.0); HGB 11.1 gm/dL (11.4-16.0); Lymphocytes # (A) 0.6 k/uL (1.0-4.8); Lymphocytes % (A) 14 %; MCH 27.5 pg (25.0-35.0); MCHC 32.3 g/dL (31.0-37.0); MCV 85.1 fL (80.0-100.0); Mean Platelet Volume 7.6; Monocytes # (A) 0.2 k/uL (0-1.0); Monocytes % (A) 4 %; Neutrophils # (A) 3.2 k/uL (1.3-7.7); Neutrophils % (A) 77 %; Platelet Count 158 k/uL (150-450); RBC 4.04 m/uL (3.80-5.40); RDW 14.5 % (11.5-15.5); WBC 4.2 k/uL (3.8-10.6)
[2018-12-05 07:57] LABS: African American GFR (CKD) >90 (>60 ml/min/1.73 sqM); Anion Gap 8 mmol/L; Blood Urea Nitrogen 5 mg/dL (7-17); Calcium 9.1 mg/dL (8.4-10.2); Carbon Dioxide 26 mmol/L (22-30); Chloride 105 mmol/L (98-107); Glucose 117 mg/dL (74-99); Sodium 139 mmol/L (137-145)
[2018-12-05 08:23] LABS: Appearance,Urine Clear (Clear); Bilirubin,Urine Negative (Negative); Blood,Urine Negative (Negative); Color,Urine Colorless; Glucose,Urine (UA) Negative (Negative); Ketones,Urine Negative (Negative); Leukocyte Esterase,Urine Negative (Negative); Nitrite,Urine Negative (Negative); Protein,Urine Negative (Negative); Specific Gravity,Urine 1.001 (1.001-1.035); Urobilinogen,Urine <2.0 mg/dL (<2.0)
[2018-12-05] MEDS ORDERED: ACETAMINOPHEN TAB 500 MG TAB PO STA (08:34)
[2018-12-05 08:43] VITALS: RESP 18
[2018-12-05 09:02] VITALS: BP 128/70; PULSE 72
== END 2018-12-05 09:03 | disposition home or self-care (01) ==
LOC: EC 06:36
DX: E11.9 Type 2 diabetes mellitus without complications (principal); R68.2 Dry mouth, unspecified; Z88.6 Allergy status to analgesic agent; K21.9 Gastro-esophageal reflux disease without esophagitis; E78.5 Hyperlipidemia, unspecified; I10 Essential (primary) hypertension; Z79.51 Long term (current) use of inhaled steroids; Z79.899 Other long term (current) drug therapy; Z95.0 Presence of cardiac pacemaker; Z87.01 Personal history of pneumonia (recurrent)
CPT/HCPCS: 36415; 80048; 81003; 85025; 93005; 96360; 99285

== ENCOUNTER 2018-12-12 16:27 | Emergency (ER) | payer MEDICARE, OTHER ==
[2018-12-12] MEDS ORDERED: LISINOPRIL 10 MG TAB PO STA (17:44)
[2018-12-12 17:46] VITALS: RESP 18
--- NOTE | 2018-12-12 17:46 | ED ---
General Adult HPI - General Chief complaint: Recheck/Abnormal Lab/Rx Stated complaint: elevated BP Time Seen by Provider: 12/12/18 17:06 Source: patient, RN notes reviewed Mode of arrival: wheelchair Limitations: no limitations - History of Present Illness Initial comments: This a 63-year-old female presents emergency Department chief complaint of high blood pressure. Patient states her visiting nurse at home told her blood pressure was high. Patient PCP was notified and was recommended go to the emergency department. Patient states she has no current chest pain or shortness breath. She did have 1 episode of chest pain lasted a minute or 2 this morning. Patient had a recent heart cath and pacemaker. She states she had normal heart cath. Patient denies any current headache, dizziness, nausea, vomiting diarrhea constipation no fevers or chills no URI symptoms. Patient did not take her blood pressure medication for her nighttime dose. - Related Data Home Medications Medication Instructions Recorded Confirmed Calcium Carbonate [Calcium] 600 mg PO BID 11/03/18 12/05/18 Fish Oil/Dha/Epa [Fish Oil 1,200 1 cap PO HS 11/03/18 12/05/18 mg Fish Oil] Lisinopril [Prinivil] 10 mg PO BID 11/03/18 12/05/18 Magnesium Oxide [Mag-Ox] 400 mg PO DAILY 11/03/18 12/05/18 Omeprazole [PriLOSEC] 20 mg PO DAILY 11/03/18 12/05/18 Simvastatin [Zocor] 20 mg PO HS 11/03/18 12/05/18 Fluticasone Nasal [place] [Flonase 2 spr EA NOSTRIL DAILY 11/22/18 12/05/18 Nasal [place]] Mag Hydrox/Al Hydrox/Simeth 30 ml PO Q6H PRN 11/22/18 12/05/18 [Maalox] Cholecalciferol [Vitamin D3 (25 2,000 unit PO DAILY 11/24/18 12/05/18 Mcg = 1000 Iu)] Previous Rx's Medication Instructions Recorded Metoprolol Tartrate [Lopressor] 25 mg PO BID #60 tab 11/06/18 Diclofenac Sodium [Voltaren Gel] 4 gram TOPICAL QID #100 gram 11/28/18 Melatonin 5 mg PO HS #30 tablet 11/28/18 Isosorbide Mononitrate ER [Imdur] 15 mg PO DAILY #7 dose 12/01/18 Levofloxacin [Levaquin] 500 mg PO DAILY #5 tab 12/03/18 glipiZIDE [Glucotrol] 2.5 mg PO AC-BRKFST #30 tab 12/03/18 metroNIDAZOLE [Flagyl] 500 mg PO Q8HR #15 tab 12/03/18 Allergies Allergy/AdvReac Type Severity Reaction Status Date / Time aspirin AdvReac Abdominal Verified 12/12/18 16:37 Pain Review of Systems ROS Statement: Those systems with pertinent positive or pertinent negative responses have been documented in the HPI. ROS Other: All systems not noted in ROS Statement are negative. Past Medical History Past Medical History: Diabetes Mellitus, GERD/Reflux, Hyperlipidemia, Hypertension, Pneumonia Additional Past Medical History / Comment(s): Complete heart block Last Myocardial Infarction Date:: 10/2018 History of Any Multi-Drug Resistant Organisms: None Reported Past Surgical History: Cholecystectomy, Heart Catheterization, Hysterectomy, Pacemaker Past Anesthesia/Blood Transfusion Reactions: No Reported Reaction Type of Cardiac Device: Biventricular Pacemaker Device Placement Date:: 10/2018 Past Psychological History: Anxiety Smoking Status: Never smoker Past Alcohol Use History: None Reported Past Drug Use History: None Reported - Past Family History Father Additional Family Medical History / Comment(s): Father in his 80s from a stroke. Mother Additional Family Medical History / Comment(s): Mother is with history of hypertension. Brother(s) Additional Family Medical History / Comment(s): Patient has one brother history of [place] at age 60. Sister(s) Family Medical History: Cancer Additional Family Medical History / Comment(s): breast General Exam Limitations: no limitations General appearance: alert, in no apparent distress Head exam: Present: atraumatic, normocephalic, normal inspection Eye exam: Present: normal appearance, PERRL, EOMI. Absent: scleral icterus, co njunctival injection, periorbital swelling ENT exam: Present: normal exam, normal oropharynx, mucous membranes moist, TM's normal bilaterally Neck exam: Present: normal inspection, full ROM. Absent: tenderness, meningismus, lymphadenopathy Respiratory exam: Present: normal lung sounds bilaterally, other (Well-healed incisional left upper chest over pacemaker region). Absent: respiratory distress, wheezes, rales, rhonchi, stridor, chest wall tenderness Cardiovascular Exam: Present: regular rate, normal rhythm, normal heart sounds. Absent: systolic murmur, diastolic murmur, rubs, gallop, clicks Neurological exam: Present: alert, oriented X3, CN II-XII intact Skin exam: Present: warm, dry, intact, normal color. Absent: rash Course Vital Signs 12/12/18 12/12/18 16:34 17:45 Temperature 98.7 F Pulse Rate 91 75 Respiratory 20 18 Rate Blood Pressure 162/88 141/83 O2 Sat by Pulse 99 97 Oximetry EKG Findings - EKG Comments: EKG Findings:: Atrial sensed ventricular paced rhythm rate of 77 [place] 266 QRS 144 QT/QTC 428/484 - EKG Results: EKG: interpreted by MARIPOSA Medical Decision Making - Medical Decision Making Labs EKG and chest x-ray were ordered. There are no acute findings. Patient's blood pressure within normal limits. Patient was discharged in stable condition patient will follow-up with her PCP. - Lab Data Result diagrams: 12/12/18 17:39 12/12/18 17:39 Lab Results 12/12/18 12/12/18 12/12/18 Range/Units 17:39 17:39 17:39 WBC 5.0 (3.8-10.6) k/uL RBC 4.37 (3.80-5.40) m/uL Hgb 12.6 (11.4-16.0) gm/dL Hct 38.3 (34.0-46.0) % MCV 87.8 (80.0-100.0) fL MCH 28.8 (25.0-35.0) pg MCHC 32.9 (31.0-37.0) g/dL RDW 14.9 (11.5-15.5) % Plt Count 144 L (150-450) k/uL Neutrophils % 66 % Lymphocytes % 21 % Monocytes % 7 % Eosinophils % 3 % Basophils % 1 % Neutrophils # 3.3 (1.3-7.7) k/uL Lymphocytes # 1.1 (1.0-4.8) k/uL Monocytes # 0.3 (0-1.0) k/uL Eosinophils # 0.2 (0-0.7) k/uL Basophils # 0.1 (0-0.2) k/uL PT (9.0-12.0) sec INR (<1.2) APTT (22.0-30.0) sec Sodium 139 (137-145) mmol/L Potassium 3.8 (3.5-5.1) mmol/L Chloride 105 (98-107) mmol/L Carbon Dioxide 25 (22-30) mmol/L Anion Gap 9 mmol/L BUN 10 (7-17) mg/dL Creatinine 0.72 (0.52-1.04) mg/dL Est GFR (CKD-EPI)AfAm >90 (>60 ml/min/1.73 sqM) Est GFR (CKD-EPI)NonAf 89 (>60 ml/min/1.73 sqM) Glucose 133 H (74-99) mg/dL Calcium 9.4 (8.4-10.2) mg/dL Magnesium 2.0 (1.6-2.3) mg/dL Total Bilirubin 0.3 (0.2-1.3) mg/dL AST 20 (14-36) U/L ALT 40 (9-52) U/L Alkaline Phosphatase 56 (38-126) U/L Troponin I (0.000-0.034) ng/mL NT-Pro-B Natriuret Pep 163 pg/mL Total Protein 7.0 (6.3-8.2) g/dL Albumin 4.0 (3.5-5.0) g/dL Lipase 196 (23-300) U/L 12/12/18 12/12/18 Range/Units 17:39 17:39 WBC (3.8-10.6) k/uL RBC (3.80-5.40) m/uL Hgb (11.4-16.0) gm/dL Hct (34.0-46.0) % MCV (80.0-100.0) fL MCH (25.0-35.0) pg MCHC (31.0-37.0) g/dL RDW (11.5-15.5) % Plt Count (150-450) k/uL Neutrophils % % Lymphocytes % % Monocytes % % Eosinophils % % Basophils % % Neutrophils # (1.3-7.7) k/uL Lymphocytes # (1.0-4.8) k/uL Monocytes # (0-1.0) k/uL Eosinophils # (0-0.7) k/uL Basophils # (0-0.2) k/uL PT 10.2 (9.0-12.0) sec INR 0.9 (<1.2) APTT 22.0 (22.0-30.0) sec Sodium (137-145) mmol/L Potassium (3.5-5.1) mmol/L Chloride (98-107) mmol/L Carbon Dioxide (22-30) mmol/L Anion Gap mmol/L BUN (7-17) mg/dL Creatinine (0.52-1.04) mg/dL Est GFR (CKD-EPI)AfAm (>60 ml/min/1.73 sqM) Est GFR (CKD-EPI)NonAf (>60 ml/min/1.73 sqM) Glucose (74-99) mg/dL Calcium (8.4-10.2) mg/dL Magnesium (1.6-2.3) mg/dL Total Bilirubin (0.2-1.3) mg/dL AST (14-36) U/L ALT (9-52) U/L Alkaline Phosphatase (38-126) U/L Troponin I <0.012 (0.000-0.034) ng/mL NT-Pro-B Natriuret Pep pg/mL Total Protein (6.3-8.2) g/dL Albumin (3.5-5.0) g/dL Lipase (23-300) U/L Disposition Clinical Impression: Hypertension Disposition: HOME SELF-CARE Condition: Stable Instructions (If sedation given, give patient instructions): Hypertension (ED) Additional Instructions: Please return to the Emergency Department if symptoms worsen or any other concerns. Is patient prescribed a controlled substance at d/c from ED?: No Referrals: Kj Aburto MD [Primary Care Provider] - 1-2 days Time of Disposition: 18:30
[2018-12-12 17:48] LABS: Basophils # (A) 0.1 k/uL (0-0.2); Basophils % (A) 1 %; Eosinophils # (A) 0.2 k/uL (0-0.7); Eosinophils % (A) 3 %; HCT 38.3 % (34.0-46.0); HGB 12.6 gm/dL (11.4-16.0); Lymphocytes # (A) 1.1 k/uL (1.0-4.8); Lymphocytes % (A) 21 %; MCH 28.8 pg (25.0-35.0); MCHC 32.9 g/dL (31.0-37.0); MCV 87.8 fL (80.0-100.0); Mean Platelet Volume 8.9; Monocytes # (A) 0.3 k/uL (0-1.0); Monocytes % (A) 7 %; Neutrophils # (A) 3.3 k/uL (1.3-7.7); Neutrophils % (A) 66 %; Platelet Count 144 k/uL (150-450); RBC 4.37 m/uL (3.80-5.40); RDW 14.9 % (11.5-15.5)
[2018-12-12 18:01] LABS: ALT 40 U/L (9-52); AST 20 U/L (14-36); African American GFR (CKD) >90 (>60 ml/min/1.73 sqM); Alkaline Phosphatase 56 U/L (38-126); Anion Gap 9 mmol/L; Blood Urea Nitrogen 10 mg/dL (7-17); Calcium 9.4 mg/dL (8.4-10.2); Carbon Dioxide 25 mmol/L (22-30); Chloride 105 mmol/L (98-107); Glucose 133 mg/dL (74-99); Potassium 3.8 mmol/L (3.5-5.1); Sodium 139 mmol/L (137-145); Total Bilirubin 0.3 mg/dL (0.2-1.3)
[2018-12-12 18:03] LABS: INR 0.9 (<1.2); Prothrombin Time 10.2 sec (9.0-12.0)
--- NOTE | 2018-12-12 18:10 | XR ---
EXAMINATION TYPE: XR chest 2V DATE OF EXAM: 12/12/2018 COMPARISON: NONE HISTORY: Chest x-ray and CTA chest December 01, 2018. TECHNIQUE: Frontal and lateral views of the chest are obtained. FINDINGS: There is no focal air space opacity, pleural effusion, or pneumothorax seen. The cardiac silhouette size is within normal limits. Dual-lead pacemaker is redemonstrated. Cholecystectomy clips are noted. Slight underlying scoliotic curvature. IMPRESSION: No acute cardiopulmonary process.
[2018-12-12 18:45] VITALS: BP 137/73; PULSE 74; TEMP 98.1
== END 2018-12-12 18:44 | disposition home or self-care (01) ==
LOC: EC 16:27
DX: I10 Essential (primary) hypertension (principal); I44.2 Atrioventricular block, complete; I25.2 Old myocardial infarction; E11.9 Type 2 diabetes mellitus without complications; K21.9 Gastro-esophageal reflux disease without esophagitis; E78.5 Hyperlipidemia, unspecified; F41.9 Anxiety disorder, unspecified; Z88.6 Allergy status to analgesic agent; Z79.899 Other long term (current) drug therapy; Z82.49 Family history of ischemic heart disease and other diseases of the circulatory system; Z95.5 Presence of coronary angioplasty implant and graft; Z95.0 Presence of cardiac pacemaker; Z79.84 Long term (current) use of oral hypoglycemic drugs
CPT/HCPCS: 36415; 71046; 80053; 83690; 83735; 83880; 84484; 85025; 85610; 85730; 93005; 99284

== ENCOUNTER 2018-12-14 07:12 | Emergency (ER) | payer MEDICARE, OTHER ==
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
[2018-12-14 08:19] LABS: Basophils % (A) 1 %; Eosinophils # (A) 0.1 k/uL (0-0.7); Eosinophils % (A) 2 %; HCT 39.4 % (34.0-46.0); HGB 13.2 gm/dL (11.4-16.0); Lymphocytes # (A) 0.9 k/uL (1.0-4.8); Lymphocytes % (A) 21 %; MCH 28.8 pg (25.0-35.0); MCHC 33.6 g/dL (31.0-37.0); MCV 85.8 fL (80.0-100.0); Mean Platelet Volume 7.4; Monocytes # (A) 0.2 k/uL (0-1.0); Monocytes % (A) 6 %; Neutrophils % (A) 69 %; Platelet Count 179 k/uL (150-450); RBC 4.59 m/uL (3.80-5.40); RDW 14.7 % (11.5-15.5); WBC 4.4 k/uL (3.8-10.6)
[2018-12-14 08:27] LABS: ALT 33 U/L (9-52); AST 22 U/L (14-36); African American GFR (CKD) >90 (>60 ml/min/1.73 sqM); Albumin 4.2 g/dL (3.5-5.0); Alkaline Phosphatase 52 U/L (38-126); Anion Gap 10 mmol/L; Blood Urea Nitrogen 8 mg/dL (7-17); Calcium 9.7 mg/dL (8.4-10.2); Carbon Dioxide 24 mmol/L (22-30); Chloride 105 mmol/L (98-107); Creatine Kinase <20 U/L (30-135); Glucose 132 mg/dL (74-99); Magnesium 1.9 mg/dL (1.6-2.3); Sodium 139 mmol/L (137-145); Total Bilirubin 0.4 mg/dL (0.2-1.3); Total Protein 7.4 g/dL (6.3-8.2)
[2018-12-14 08:30] LABS: INR 0.9 (<1.2); Partial Thromboplastin Time 21.9 sec (22.0-30.0)
--- NOTE | 2018-12-14 08:32 | XR ---
EXAMINATION TYPE: XR chest 2V DATE OF EXAM: 12/14/2018 COMPARISON: Chest x-ray December 12, 2018. CTA chest December 01, 2018. HISTORY: Chest pain and cough. TECHNIQUE: Frontal and lateral views of the chest are obtained. FINDINGS: There is no focal air space opacity, pleural effusion, or pneumothorax seen. The cardiac silhouette size is within normal limits. Overlying dual-lead pacemaker is redemonstrated. Underlying scoliotic curvature positioning is again seen. Cholecystectomy clips are redemonstrated. IMPRESSION: No acute cardiopulmonary process. No significant change from prior.
[2018-12-14 10:02] VITALS: BP 120/81; PULSE 76; RESP 16; TEMP 98
== END 2018-12-14 09:55 | disposition home or self-care (01) ==
LOC: EC 07:12
DX: F41.9 Anxiety disorder, unspecified (principal); R07.89 Other chest pain; K92.89 Other specified diseases of the digestive system; K21.9 Gastro-esophageal reflux disease without esophagitis; E78.5 Hyperlipidemia, unspecified; I10 Essential (primary) hypertension; Z88.6 Allergy status to analgesic agent; Z79.51 Long term (current) use of inhaled steroids; Z79.899 Other long term (current) drug therapy; Z87.01 Personal history of pneumonia (recurrent); Z95.0 Presence of cardiac pacemaker; Z95.5 Presence of coronary angioplasty implant and graft; Z90.49 Acquired absence of other specified parts of digestive tract; Z82.49 Family history of ischemic heart disease and other diseases of the circulatory system; W50.0XXA Accidental hit or strike by another person, initial encounter
CPT/HCPCS: 36415; 71046; 80053; 82550; 83690; 83735; 83880; 84484; 85025; 85610; 85730; 93005; 99285

== ENCOUNTER → 2019-01-04 | Outpatient (CLI) | payer MEDICARE, OTHER ==
--- NOTE | 2019-01-04 12:42 | FL ---
EXAMINATION TYPE: FL barium swallow DATE OF EXAM: 01/04/2019 CLINICAL HISTORY: Dysphagia TECHNIQUE: A single contrast esophagram is performed utilizing thin barium only. A total of 49 seco nds of fluoroscopic time was utilized during procedure. 21 fluoroscopic images were saved during the examination. COMPARISON: None FINDINGS/ IMPRESSION: Upright image was only performed with thin contrast as the patient refused effervescent c rystals, refused thick contrast, and refused any further examining with the thin consistency. The resendiz ited exam demonstrates tertiary contractions most commonly related to presbyesophagus. No gross evide nce of gastroesophageal reflux or stricture.
== END | disposition home or self-care (01) ==
LOC: RADUSWWP 10:43
PROVIDERS: ATTEND Otolaryngology
DX: K22.8 Other specified diseases of esophagus (principal)
CPT/HCPCS: 74220